=== PATIENT | female | born 1970 | race Caucasian/White ===

== ENCOUNTER 2016-12-21 17:49 | Inpatient (IN) ==
[2016-12-21 20:00] LABS: BASO% 0.5 % (0.0-0.8); EOS# 0.02 X1000 (0.0-0.7); EOS% 0.1 % (0.0-10.0); HEMATOCRIT 33.3 % (37.0-47.0); HEMOGLOBIN 10.9 g/dL (12.0-16.0); IMM GRAN# 0.15 X1000 (0.0-0.04); IMM GRAN% 0.9 % (0.0-0.5); LYMPH# 1.61 X1000 (1.2-3.4); LYMPH% 9.9 % (20.5-51.1); MANUAL DIFF NEEDED? NO; MCH 37.6 PG (27-31); MCHC 32.7 g/dL (33-37); MCV 114.8 FL (81-99); MONO# 0.66 X1000 (0.11-0.59); MONO% 4.1 % (1.7-9.3); MPV 12.3 FL (7.4-10.4); NEUT% 84.5 % (42.2-75.2); PLT 190 X1000 (130-400)
[2016-12-21 20:06] LABS: INR 1.57
[2016-12-21 20:24] LABS: AGAP 27; ALBUMIN 2.2 g/dL (3.5-5.0); ALKALINE PHOSPHATASE 340 U/L (32-104); AMYLASE 37 U/L (20-200); BUN 10 mg/dL (8-22); CHLORIDE 84 mmol/L (98-107); COSMO 265; GOT 293 U/L (10-30); GPT 85 U/L (10-36); LIPASE 72 U/L (13-60); SODIUM 134 mmol/L (136-145); TCO2 23 mmol/L (25-35); TOTAL BILIRUBIN 17.62 mg/dL (0.20-1.00)
--- NOTE | 2016-12-21 21:31 | Diag Imaging Result Doc PS360 ---
EXAM: THORAX/ABDOMEN/PELVIS INDICATION: jaundice, IV ONLY COMPARISON: CT abdomen and pelvis dated 08/21/2016. No prior CT chest is available for comparison. FINDINGS: CHEST: There are bilateral small pleural effusions and there is bibasilar atelectasis. There is subtle patchy groundglass opacity throughout the left lung suggesting air trapping or mild edema. The heart is not enlarged. There is no evidence of significant mediastinal or hilar lymphadenopathy. There are no abnormal mediastinal fluid collections. The bony structures of the chest are intact. ABDOMEN/PELVIS: There is hepatomegaly and there is severe hepatic steatosis that has worsened during the interval. The gallbladder is distended and there is vague sludge or stones layering in the gallbladder lumen. There is no definite pericholecystic inflammatory change. The spleen is not enlarged. There is mild thickening of essentially the entire colonic wall. However, probably, at least in part, this is due to nondistention of the colon. Correlate clinically to exclude a component of colitis. There are traces of extraluminal free gas low in the pelvis anterior to the urinary bladder. There is no obvious source of the gas. There is evidence of prior gastric bypass. There is no evidence of bowel obstruction. There has been a previous hysterectomy. There is small volume ascites that is layering in the pelvis. The remainder of the solid viscera of the abdomen and pelvis and the remainder of the GI tract are essentially unremarkable. IMPRESSION: 1.Small bilateral pleural effusions and bibasilar atelectasis. 2.Vague patchy ground glass opacity throughout the left lung suggesting mild edema versus air trapping. 3.Traces of extraluminal free gas low in the pelvis anterior to the urinary bladder and just superior to the pubic symphysis. However, the source of this is unknown. 4.Diffusely thickened colonic wall. This may be, at least in part, due to nondistention of the colon. Correlate clinically to exclude a component of colitis. 5.Hepatomegaly and very severe hepatic steatosis that has worsened during the interval. 6.Distended gallbladder with layering sludge or stones in the lumen. No definite surrounding inflammatory changes are appreciated. Electronically signed by Anam Eubanks 12/21/2016 9:28 PM
--- NOTE | 2016-12-21 22:42 | PROVIDER DOCUMENTATION ---
This chart was entered by Siva Nunez Scribe, acting as scribe for Hair Mckeon MD. HPI-Abdominal Pain/GI Problem - General Chief Complaint: Flank Pain Stated Complaint: jaundice Time Seen by Provider: 12/21/16 18:57 Source: patient, family Allergies/Adverse Reactions: Patient Allergies Allergy/AdvReac Type Severity Reaction Status Date / Time No Known Allergies Allergy Verified 12/21/16 18:05 Home Medications: Home Medication List Medication Instructions Recorded Confirmed Last Taken Type Fentanyl [Duragesic] 1 patch TD Q3D 12/21/16 12/21/16 12/19/16 History Methocarbamol [Methocarbamol] 750 mg PO 4XDAY 12/21/16 12/21/16 12/20/16 History Ondansetron Odt [Zofran Odt] 8 mg PO PRN PRN 12/21/16 12/21/16 Unknown History Rabeprazole [Aciphex] 20 mg PO DAILY 12/21/16 12/21/16 12/19/16 History - History of Present Illness-ABD Nature of Presenting Problems: Pt is a 46 yowf who presents to ER with CC of abdominal distention and jaundice. Pt reports general malaise for the past month, but reports that within the past week has developed loss of appetite, decreased desire to smoke cigarettes (1 ppd), abdominal distention, jaundice (scleral icterus noticed today), and shortness of breath (approximately for past 3 days). Pt reports that she normally consumes approxiamtely 1/3 pint of vodka per day, but has not felt like drinking for the past several days. Pt also reports she has been on phentanyl and percocet for the past 10-15 years. Abdominal Pain Onset Location: reports: generalized abdomen Pain Radiation: reports: no radiation Quality of Pain: reports: cramping Severity in ED: reports: moderate Onset/Duration: reports: other ("past month") Timing: reports: still present Associated Symptoms: reports: loss of appetite, malaise, shortness of breath, other (jaundice; scleral icterus). denies: anxiety, arm pain, chest pain, cough , diaphoresis, diarrhea, dizziness, fever/chills, headaches, muscle aches, nausea, vomiting, weakness, trouble walking Last BM: unsure Dark Stools Present?: reports: none noticed Rectal Bleeding: reports: none Rectal Pain: reports: none Emesis Description: reports: none Review of Systems - Adult - REVIEW OF SYSTEMS - ADULT Constitutional: denies: chills, fever, fatique, night sweats, weight gain, weight loss Eyes: reports: other (scleral icterus). denies: dry eyes, eye pain, redness Ears, Nose, Mouth & Throat: reports: no symptoms reported Cardiovascular: reports: no symptoms reported Respiratory: reports: shortness of breath. denies: chronic cough, cough, dyspnea on exertion, excessive sputum production, hemoptysis, pleurisy, wheezing Gastrointestinal: reports: abdominal pain (pain/distention), poor appetite. denies: hematemesis, constipation, diarrhea, difficulty swallowing, frequent heartburn, nausea, rectal bleeding, vomiting Genitourinary: reports: no symptoms reported Musculoskeletal: reports: no symptoms reported Integumentary: reports: other (jaundice). denies: hives, hair loss, itching, mole changes, nail changes, rash, skin sores/ulcer, skin thickening Neurological: reports: no symptoms reported Psychiatric: reports: no symptoms reported Endocrine: reports: no symptoms reported Hematologic/Lymphatic: reports: no symptoms reported Allergic/Immunologic: reports: no symptoms reported All Other Systems: Reviewed and Negative Past History - Adult - PAST MEDICAL HISTORY-ADULT Review of Records: reports: Nursing Assessment Review, Medications Reviewed - IMMUNIZATION STATUS Childhood Immunizations: See Nurse Assessment Flu Vaccine: See Nurse Assessment Physical Exam-General - PHYSICAL EXAM-ADULT Initial Vital Signs Reviewed: Yes - CONSTITUTIONAL General Appearance: appears well, alert, mild distress, lethargic - EYES Eyes: PERRL/EOMI, scleral icterus - NECK Neck: non-tender, full range of motion, supple, normal inspection. negative: limited range of motion, lymphadenopathy - RESPIRATORY Respiratory: chest non-tender, lungs clear, normal breath sounds, no pleuratic chest pain, no respiratory distress, no accessory muscle use. negative: respiratory distress, decreased breath sounds, accessory muscle use, wheezing - CARDIOVASCULAR Cardiovascular: normal peripheral pulses, regular rate, rhythm. negative: bradycardia, tachycardia, irregularly irregular - GASTROINTESTINAL (ABDOMEN) Abdominal Exam: normal bowel sounds, non tender, distended (minimal ascites), hepatomegaly (ende of liver is below umbilicus). negative: soft, no organomegaly, tenderness - MUSCULOSKELETAL Back Exam: normal inspection, no CVA tenderness, no vertebral tenderness, other (mid thoracic to saccral change in skin texture from prolonged exposure to heating pad). negative: CVA tenderness, vertebral tenderness Extremity: normal range of motion, non-tender, normal gait, normal inspection, no pedal edema, no calf tenderness, normal capillary refill, pelvis stable. negative: deformity, erythema, inflammation, swelling, tenderness - SKIN Integumentary: normal turgor, warm/dry, jaundice, other (mid thoracic to saccral change in skin texture from prolonged exposure to heating pad). negative: normal color, abrasion(s), diaphoresis, laceration(s), tenderness, warm - NEUROLOGIC Neurologic: apprentice cosmetologist II-XII nml as tested, grossly normal, no motor/sensory deficits . negative: motor weakness, sensory deficit - PSYCHIATRIC Psych/Mental Status: normal mood/affect, normal thought content, normal thought process, oriented x 3 Progress - PLAN OF CARE/RESULTS Progress/Plan/Lab Results: Vital Signs - 8 hr 12/21/16 18:03 Temperature 97.6 F Pulse Rate 117 H Respiratory Rate 20 Blood Pressure 102/70 O2 Sat by Pulse Oximetry 99 Orders Category Date Time Status Saline Loc DIRECTED Care 12/21/16 18:09 Active NPO Diet 12/21/16 18:[address] ABD/PELVIS W/ IV CONT ONLY [CT] Stat Exams 12/21/16 19:19 Ordered AMMONIA [CHEM] Stat Lab 12/21/16 18:08 Uncollected AMYLASE [CHEM] Stat Lab 12/21/16 19:00 Ordered CBC WITH ELECTRONIC DIFF [HEME] Stat Lab 12/21/16 19:00 Ordered COMPREHENSIVE METABOLIC PANEL [CHEM] Stat Lab 12/21/16 19:00 Ordered LIPASE [CHEM] Stat Lab 12/21/16 19:00 Ordered UA NIMS W/REFLEX CULT [URINALYSIS] Stat Lab 12/21/16 19:18 Uncollected URINALYSIS W/POSS RFLX CULT-1 [URINALYSIS] Stat Lab 12/21/16 18:09 Uncollected Result Diagrams: 12/21/16 18:58 12/21/16 18:58 - REASSESSMENT Reassessment #1 Time Reassessed: 22:38 (Discussed results of labs and radiology as well as plan to admit. PT and family at bedside verbally agree) - CT/MRI 1 CT Study: Abdomen, Pelvis, Thorax Impression: See EMR Report (Small bilateral pleural effusions and bibasilar atelectasis. Vague patchy ground glass opacity throughout the left lung suggesting mild edema versus air trapping. Traces of extraluminal free gas low in the pelvis anterior to the urinary bladder and just superior to the pubic symphasis. However, the source of this is unknown. Diffusely thickened colonic wall. This may be, at least in part, due to nondistention of the colon. Hepatomegaly and very severe hepatic steatosis that has worsened during the interval. Distended gallbladder with layering sludge or stones in the lumen. No definite surrounding inflammatory changes are appreciated - Dr. Eubanks ( Radiologist)) CT Results: See report - CONSULTS/PCP/HOSPITALIST Notification #1 *Consult/PCP/Hospitalist*: Dr. Rivas (Hospitalist) Time Discussed: 22:20 Consult Disposition: Admit Departure - Departure Date of Disposition Decision: 12/21/16 Time of Disposition Decision: 22:40 DIAGNOSIS: Hepatic failure Qualifiers: Liver failure chronicity: chronic Hepatic coma status: without hepatic coma Qualified Code(s): K72.10 - Chronic hepatic failure without coma Disposition: ADMITTED INPATIENT 09 Certified Medical Emergency: Emergent Condition: Poor Referrals and Follow-Ups: Nydia Lenz [Primary Care Provider] - - Critical Care Note This patient required my direct & personal management of CC.: No This chart was documented by the indicated scribe, (Siva Nunez Scribe) and accurately reflects the services I performed and decisions made by me, Hair Mckeon MD, as attested by the provider's signature.
[2016-12-21 23:05] LABS: URINE SOURCE CLEAN CATCH
[2016-12-21 23:14] LABS: UR EPITHELIAL CELLS <10 /HPF (<10); URINE BACTERIA 4+ /HPF; URINE MICRO REVIEW NEEDED? YES; URINE RBC <10 /HPF (<10)
[2016-12-21 23:49] LABS: BILIRUBIN URINE LARGE (NEGATIVE); BLOOD URINE SMALL (NEGATIVE); COLOR BROWN; GLUCOSE URINE NEGATIVE (NEGATIVE); NITRITE URINE NEGATIVE (NEGATIVE); PROTEIN URINE NEGATIVE (NEGATIVE); SP GRAVITY URINE 1.025; TURBIDITY URINE CLEAR (CLEAR); URINE CASTS GRANULAR PRESENT; URINE CRYSTALS NONE SEEN; UROBILINOGEN URINE NORMAL (NORMAL)
[2016-12-21 23:50] LABS: LEUKOCYTES URINE TRACE (NEGATIVE); URINE CULTURE NEEDED? YES
[2016-12-22] MEDS ORDERED: KLOR-CON PO ONE (00:40)
[2016-12-22] MEDS ORDERED: ATIVAN IV ONE (00:41)
[2016-12-22] MEDS ORDERED: ZOFRAN IV PRN (00:41)
[2016-12-22] MEDS ORDERED: THIAMINE IM ONE (02:17)
[2016-12-22] MEDS ORDERED: PROTONIX IV SCH (02:30)
[2016-12-22] MEDS: ROCEPHIN 1 GM/NS 1 GM/50 ML IVPB IV SCH (03:20)
[2016-12-22] MEDS: SODIUM CHLORIDE 0.9% INJ SCH ×2 (03:21→16:02)
[2016-12-22] MEDS: ATIVAN IV PRN ×4 (05:10→23:21)
[2016-12-22 06:16] LABS: BASO% 0.8 % (0.0-0.8); EOS# 0.05 X1000 (0.0-0.7); EOS% 0.3 % (0.0-10.0); HEMATOCRIT 28.9 % (37.0-47.0); HEMOGLOBIN 9.1 g/dL (12.0-16.0); IMM GRAN# 0.06 X1000 (0.0-0.04); IMM GRAN% 0.4 % (0.0-0.5); LYMPH# 1.68 X1000 (1.2-3.4); LYMPH% 11.5 % (20.5-51.1); MANUAL DIFF NEEDED? NO; MCH 36.8 PG (27-31); MCHC 31.5 g/dL (33-37); MONO# 0.64 X1000 (0.11-0.59); MONO% 4.4 % (1.7-9.3); NEUT% 82.6 % (42.2-75.2); PLT 60 X1000 (130-400); RBC 2.47 XMIL (4.2-5.4)
[2016-12-22 06:22] LABS: INR 1.79; PROTIME 19.5 Seconds (9.2-11.7)
[2016-12-22 06:34] LABS: MAGNESIUM 2.8 mg/dL (1.5-2.7)
[2016-12-22 07:07] LABS: AGAP 13; ALBUMIN 1.8 g/dL (3.5-5.0); ALKALINE PHOSPHATASE 264 U/L (32-104); BUN 12 mg/dL (8-22); CALCIUM 7.4 mg/dL (8.8-10.2); CHLORIDE 89 mmol/L (98-107); COSMO 265; GOT 238 U/L (10-30); GPT 71 U/L (10-36); POTASSIUM 3.3 mmol/L (3.5-5.1); SODIUM 133 mmol/L (136-145); TCO2 31 mmol/L (25-35); TOTAL BILIRUBIN 14.84 mg/dL (0.20-1.00); TOTAL PROTEIN 4.8 g/dL (6.3-8.3)
[2016-12-22 07:14] LABS: FERRITIN 866 ng/mL (13-150)
[2016-12-22 07:31] LABS: TOTAL IRON 85 ug/dL (49-151); UNBOUND IRON < 1 ug/dL (112-346)
--- NOTE | 2016-12-22 07:58 | HISTORY AND PHYSICAL ---
TIME: 2314. PRIMARY CARE PROVIDER: Dr. Briana Lenz. CHIEF COMPLAINT: Abdominal pain, jaundice, and abdominal distention. HISTORY OF PRESENT ILLNESS: Ms. Longoria is a 46-year-old, female, who presented to the ER [facility] with complaints of abdominal distention, abdominal pain, and jaundice. It started approximately 1 week ago. She states this progressively has gotten worse and is now having bilateral flank pain and some generalized tightness across her entire abdomen. She also reports that approximately 3 days ago she began having jaundice of the skin and eyes. She states that for approximately 1 month now that she has had decreased appetite stating that she feels full all the time. She also reports some generalized malaise for approximately 1 month and shortness of breath for the past 3 days upon exertion. She denies any nausea or vomiting but does report that she has chronic diarrhea since she has had her gastric bypass surgery though she denies any hematochezia or melena. She reports that her last bowel movement was today. She denies any fever, body aches, or chills. She is alert and oriented and denies any dizziness or lightheadedness, though did state just recently, when walking, she has felt off balance a few times. She denies any chest pain, increase or decrease in urinary frequency or dysuria. She denies any pain , numbness, or tingling in extremities. The patient does have a history of alcohol abuse. She has previously been treated at [facility] for this. The patient states this started just a year or two prior to her [facility] admission in 2014. The patient states that she uses alcohol to cope with anxiety. At this time presently, she is drinking approximately half a pint of vodka about 4 times a week. The patient states that her last drink of alcohol was 3 days ago. She also has a history of chronic pain due to some bulging disk at L3-4 and S1. The patient states that she has been on a fentanyl patch and Percocet x10 years. Though, the patient did not report this to me, her who was at bedside did report to me in private that she has had a history of abusing her prescription pain medications in the past as well, though the patient has denied any recent abuse of her pain medications or any illicit drug use. Upon examination in the ER, the patient was found to have abdominal distention. She was also jaundiced. The patient had scleral jaundice noted as well. There was also some generalized weakness. Upon evaluation, the patient was found to have elevated liver enzymes as well as leukocytosis with a white blood cell count of 16.28. A CT of the thorax, abdomen, pelvis with IV contrast only was performed which showed that the patient had small bilateral pleural effusions and atelectasis. There was also some suggestion of mild edema versus air trapping in the left lung. She has some hepatomegaly present with severe hepatic steatosis and a distended gallbladder with layering sludge or stones in the lumen though no surrounding inflammatory changes, and there was mention of traces of extra- luminal free gas in the low pelvis anterior to the urinary bladder, though the source of this was unknown. We did notify Dr. Hathaway of the patient's CT findings of free gas, and he states that he will see the patient in the morning. At this time, we will admit the patient for further treatment evaluation of her liver failure and CT findings as I mentioned above. REVIEW OF SYSTEMS: A 12-point review of systems was conducted with the patient and all were negative except for pertinent positives mentioned above in the HPI. PAST MEDICAL HISTORY: 1. Chronic pain secondary to a bulging disk at L3-L4 and S1. 2. Alcohol abuse. PAST SURGICAL HISTORY: 1. Gastric bypass surgery in 2004. She also had small bowel surgery secondary to some complications from her gastric bypass surgery approximately 2-3 years after her surgery in 2004. She also reports that she has had another ulcer surgery that the patient could not clearly state where her ulcer was located. 2. Hysterectomy. SOCIAL HISTORY: The patient has a history of alcohol abuse. As mentioned above , she has been treated previously at [facility] for this. Currently, she drinks approximately a half a pint of vodka 4 times a week and states that her last alcoholic drink was 3 days ago. She is a 1 pack a day smoker and has done so for the past 15 years. She denies any illicit drug use though, according to her , does have a history of abusing her prescription pain medicines. FAMILY HISTORY: Positive for her mother and father both having issues with chronic pain, and she does have a sister who has lupus. ALLERGIES: Patient reports no known allergies. HOME MEDICATIONS: 1. AcipHex 20 mg p.o. daily. 2. Fentanyl 75 mcg one patch transdermally q. 3 days. 3. Zofran ODT 8 mg p.o. p.r.n. as needed for nausea. 4. Methocarbamol 750 mg p.o. 4 times a day. DIAGNOSTIC DATA/LABORATORY RESULTS: White blood cell count is 16.2, red blood cell count 2.9, hemoglobin 10.9, hematocrit 33.3, MCV is 114.8, platelet count 190,000. PT 17. INR 1.57. PTT 37.3. Sodium 134, potassium 3.0, chloride 84, bicarb 23. BUN 10, creatinine 0.5, glucose 56, with a repeat fingerstick blood sugar of 74, calcium 8. Phosphorous 1.8 and magnesium 3. Total bilirubin is 17.62. GGT is 548. AST 293, ALT 85. Alkaline phosphatase 340. Ammonia level is 40. Total protein 6, albumin 2.2, amylase 37, lipase 72. Serum alcohol is 0. Acetaminophen level is 4.0. Urinalysis, obtained via clean catch, was positive for ketones, blood, large bilirubin, trace leukocytes, 10-20 white blood cells, and 4+ bacteria with less than 10 epithelial cells. Pending diagnostic studies at this time are a urine drug screen, urine culture, lipid profile, anemia profile, and abdominal ultrasound. CT of thorax, abdomen, and pelvis showed small bilateral pleural effusions and bibasilar atelectasis. There was also a patchy ground-glass opacity throughout the left lung suggesting mild edema versus air trapping. There are also traces of extraluminal free gas low in the pelvis anterior to the urinary bladder and just superior to the pubic symphysis, though the source at this time is unknown. There was diffusely thickened colonic wall, though correlation clinically to exclude component of colitis was recommended. Hepatomegaly and very severe hepatic steatosis that has worsened during the interval and distended gallbladder with layering sludge or stones in the lumen, though no definite surrounding inflammatory changes are appreciated. EKG showed a sinus tachycardia with nonspecific T-wave abnormality at a rate of 101 with a QTc of 430. PHYSICAL EXAMINATION: VITAL SIGNS: Temperature 98.8 degrees, heart rate 106, respiration 21, blood pressure 108/66. Oxygen saturation is 96% nasal cannula at 2 L. GENERAL: Ms. Longoria is a very pleasant 46-year-old female. She was resting comfortably on the ER stretcher. She was in no acute distress. She was awake, alert, and able to answer all questions appropriately. She is generally ill appearing and is jaundiced as well. HEENT: Head is atraumatic, normocephalic. Pupils are equal, round, reactive to light. Sclerae are jaundiced. Conjunctivae pink. Oral mucosa is moist. Oropharynx clear. NECK: Supple. Trachea midline. No carotid bruits noted on auscultation bilaterally. No JVD noted. CARDIOVASCULAR: The patient has normal S1, S2. No murmurs, gallops, or rubs appreciated with a slightly tachycardic rate, is regular. PULMONARY: The patient has symmetrical chest expansion bilaterally. Lung sounds were clear to auscultation in bilateral full childs. ABDOMEN: The abdomen is slightly firm, distended, and there is generalized tenderness noted throughout the abdomen. The patient did report some flank pain, though is not overly tender in this area compared to the rest of her abdominal exam. No CVA tenderness noted upon palpation. Bowel sounds were present in all 4 quadrants. EXTREMITIES: No cyanosis, clubbing, or edema noted. Pulse, motor and sensory were intact in all extremities. Pedal pulses were 3+ bilaterally. INTEGUMENTARY: The patient's skin is jaundiced. It is dry and intact. No lesions or sores noted. NEUROLOGIC: The patient is alert and orient x4. Cranial nerves 2-12 are grossly intact. The patient did have some slight asterixis noted in her left hand upon examination. ASSESSMENT AND PLAN: 1. Liver failure. For this, we have placed a consult with gastroenterology and will await their evaluation for their recommendations. The patient's liver enzymes are elevated as well as she does have some coagulopathy noted. We have placed an order for an abdominal ultrasound in the morning, as well as repeat CMP, PT/INR, lipid profile and an anemia profile. We have also placed her in ICU with telemetry for close monitoring. She will have neuro checks q.4 hours as well, and we will continue to monitor her condition very closely. 2. Macrocytic anemia. This is likely secondary to the patient's liver disease. We have placed an anemia profile and will await those results and continue to follow. 3. Leukocytosis. The patient did have some leukocytes and white blood cells with bacteria present in her urine. We have placed a urine culture as well. She is afebrile at this time. We will await on results and continue to follow. We have placed orders for the patient to have Rocephin 1 g IV q. 24 hours. 4. Urinary tract infection. We will treat as mentioned above and continue to follow. 5. Hypokalemia. The patient had a potassium level of 3.0, which she has been given potassium chloride extended release p.o. 40 mEq, and we will repeat a potassium level in the morning. 6. Alcohol abuse. We suspect that this might be the cause of the patient's liver failure. We have discussed with the patient her need to stop drinking. Also, as well, we have placed orders for Ativan p.r.n. as needed for alcohol withdrawal and will closely monitor her for these symptoms, and we will continue to follow. 7. Nicotine dependency. We will continue to discuss with the patient the importance of smoking cessation throughout her admission and upon discharge. 8. Findings of traces of extra-luminal gas in the low pelvis anterior to the urinary bladder and just superior to the pubic symphysis. As previously mentioned, the source of this is unknown according to the Radiologist report for her CT of abdomen and pelvis. We did speak with Dr. Hathaway about the patient's CT findings, and he will see her in the morning. We will await his evaluation and further recommendations and continue to follow. The patient will be placed ICU telemetry. She will have vital signs per ICU protocol. We will do fingerstick blood sugars q.4 hours. She will have DVT prophylaxis provided with SCDs. GI prophylaxis provided with Protonix 40 mg IV q. 24 hours. She will be on aspiration precautions, seizure precautions, and neuro checks. She will be n.p.o. until evaluated by GI in the morning. Further orders and recommendations pending hospital course, diagnostic studies, and physician evaluation. Dictated by LEIGHANN Herrera for Ashok Rivas MD cc: Ashok Rivas MD [facility] HOSPITALMarcela
[2016-12-22] MEDS ORDERED: POTASSIUM PHOSPHATE 40 MMOL in NS 250.0000 ML IV ONE (10:14)
[2016-12-22] MEDS ORDERED: M.V.I.-12 10 ML, FOLIC ACID 1 MG, MAGNESIUM SULFATE 1 GM, THIAMINE 100 MG in NS 1,000 ML IV ONE (10:16)
[2016-12-22] MEDS ORDERED: NS 1,000 ML IV SCH (10:16)
[2016-12-22] MEDS: DILAUDID IV PRN ×2 (11:15→22:51)
[2016-12-22] MEDS: NICODERM PATCH TD SCH (11:16)
[2016-12-22] MEDS: FOLIC ACID 1 MG in NS 50.0 ML IV SCH (11:39)
[2016-12-22] MEDS ORDERED: POTASSIUM PHOSPHATE 40 MMOL in NS 250 ML IV ONE (13:00)
--- NOTE | 2016-12-22 13:36 | Diag Imaging Result Doc PS360 ---
EXAM: US ABDOMEN-COMPLETE INDICATION: Liver Failure, ascites COMPARISON: No prior ultrasound is available for comparison. FINDINGS: There is layering sludge in the gallbladder lumen. No shadowing gallstones are appreciated. There is no evidence of gallbladder wall thickening or pericholecystic fluid. The common bile duct is normal in diameter. Sonographic Kerr's sign was reported to be negative. The liver is enlarged and very echogenic consistent with known severe hepatic steatosis as was also seen on a recent CT. No discrete hepatic mass is appreciated. Portal venous flow is hepatopedal. The pancreas is completely obscured. The aorta and IVC are largely obscured. The spleen is normal in size and echotexture. There is trace fluid around spleen and there is a left pleural effusion. The kidneys are grossly unremarkable. IMPRESSION: 1.Enlarged and markedly echogenic liver compatible with severe hepatic steatosis. 2.Layering sludge in the gallbladder lumen but no definite wall thickening or pericholecystic fluid and a reported negative sonographic Kerr's sign. 3.Trace fluid tracking around the spleen and a left pleural effusion. Electronically signed by Anam Eubanks 12/22/2016 1:34 PM
--- NOTE | 2016-12-22 15:00 | CONSULTATION ---
DATE OF CONSULTATION: 12/22/2016 Ms. Mattie Longoria is a 46-year-old white female who was admitted through the emergency department with jaundice. A CT scan of her abdomen and pelvis suggested an enlarged fatty liver, gallstones and a pocket of free air just above her pubic bone. We were asked to evaluate her. She has been admitted with liver failure. She does have a history of laparoscopic gastric bypass. PAST MEDICAL HISTORY: In 2004 in [facility], she underwent a laparoscopic gastric bypass. She has had complications of this bypass requiring a small bowel resection and also most recently ulcer surgery per Dr. Parkinson at [facility]. She has also had a hysterectomy and she is seen at a pain clinic for chronic back pain. She does have a history of alcohol abuse, being hospitalized at [facility] in March 2015 and she also smokes a pack of cigarettes a day. MEDICATIONS: AcipHex, Duragesic, Zofran and methocarbamol. REVIEW OF SYSTEMS: Her says that her appetite has been very poor and recently got her some Ensure. He has noticed that her skin was yellow for the last week and brought her to the emergency department when her eyes became yellow. They live in [place]. Her is at the bedside. FAMILY HISTORY: Noncontributory. PHYSICAL EXAMINATION: Vital Signs: Her temperature is 97.6 degrees, pulse rate 117, blood pressure 102/70. Her O2 saturation 99%. She is in the ICU. She is awake, obviously jaundiced. She is cooperative. She does not appear to be any acute distress. Heart: Rate is regular. Lungs: Clear. Abdomen: Is distended. She has a large liver that is palpable. All incisions are healed. She has no hernia and no evidence of acute abdomen. No costovertebral tenderness. Rectal/Vaginal: Exams were not performed. She does have palpable femoral pulses. She does have some peripheral edema but no neurologic deficits. On admission her white blood cell count was 16. BUN and creatinine 10 and 0.5. Her platelets were 56,000. Hematocrit 33%. Her liver function tests were elevated with a total bilirubin of 14, AST of 238, alkaline phosphatase of 264 and albumin of 1.8. DIAGNOSTIC DATA: A CT scan of abdomen and pelvis was reviewed with the radiologist Dr. Eubanks. She has diffuse grossly abnormal liver which is enlarged and diffusely fatty infiltrated. She has a possible stone in her gallbladder but no surrounding inflammation. She has a pocket of air anterior to the bladder just superior to the pubic bone. The etiology is unknown but it is not diffuse in her abdomen and on exam she has no acute abdomen. PLAN: She needs to be treated for her liver failure and no surgery is planned. I discussed my findings with her and her at the bedside. cc: Barbie Hathaway MD
[2016-12-22] MEDS: D5 NS 1,000 ML IV SCH (15:55)
[2016-12-22] MEDS: PROTONIX IV SCH (16:02)
[2016-12-22 16:39] LABS: UR AMPHETAMINES QUAL NONE DETECTED (NONE DETECT); UR BARBITUATES QUAL NONE DETECTED (NONE DETECT); UR BENZODIAZEPIN QUAL NONE DETECTED (NONE DETECT); UR CANNABINOIDS QUAL NONE DETECTED (NONE DETECT); UR COCAINE QUAL NONE DETECTED (NONE DETECT); UR METHADONE QUAL NONE DETECTED (NONE DETECT); UR OPIATES QUAL NONE DETECTED (NONE DETECT); UR OXYCODONE QUAL NONE DETECTED (NONE DETECT); UR PCP QUAL NONE DETECTED (NONE DETECT)
[2016-12-22] MEDS: TRENTAL PO SCH (17:35)
--- NOTE | 2016-12-22 18:34 | CONSULTATION ---
DATE OF CONSULTATION: 12/22/2016 PRIMARY CARE PROVIDER: Dr. Nydia Lenz M.D. PRIMARY HOSPITALIST: Dr. Elo Dolan M.D. SURGEON: Dr. Marcus Parkinson M.D. PRIMARY TURNING SANDER TENDER: Vladimir Faria M.D. INDICATION FOR CONSULTATION: 1. Jaundice. 2. Abdominal pain. 3. Abdominal distention. HISTORY OF PRESENT ILLNESS: The patient is a 46-year-old white female who was admitted on 12/22/2016. She presented to the emergency room with a 1-week history of abdominal pain, abdominal distention, loss of appetite and weakness. The patient is unable to provide a history. According to her , she has a longstanding history of morbid obesity. While living in [place], she underwent a Digna-en-Y gastric bypass in 2004. Her postoperative course was complicated by a small bowel obstruction that required reoperation. She did well until 2016 when she developed an upper GI bleed secondary to anastomotic ulcer that was surgically repaired by Dr. Kevin Parkinson. Her primary primary care sales representative is Dr. Vladimir Faria. He states that she has a longstanding history of alcohol abuse and cirrhosis. She has been recently treated at [facility] stating that her last admission was in 2014. She drinks approximately half a pint of vodka 4-5 times per week. She states that her last drink was 3 days prior to admission. In the emergency room, she was found to have abdominal distention, obvious jaundice and generalized weakness. On serum chemistry, her liver function tests were significantly elevated and she has an unexplained leukocytosis with a white blood cell count of 16.28. Her CT scan of the chest, abdomen, and pelvis was remarkable for bilateral pleural effusions, possible pulmonary edema versus air trapping in the lung, traces of extraluminal free gas in the pelvis anterior to the urinary bladder and above the pubic symphysis. In addition, her colonic mucosal wall appeared diffusely thickened and was suggestive of possible colitis. She had a very severe hepatic steatosis and hepatomegaly with a distended gallbladder showing evidence of layering sludge or stones. There were no defined inflammatory changes suggesting an acute cholecystitis. Prior to our consultation, she was evaluated by Dr. Christian Hathaway who felt that surgery was not an option at this time. PAST MEDICAL HISTORY: 1. Alcohol liver disease. 2. Obesity status post Digna-en-Y gastric bypass. 3. Small bowel obstruction. 4. Anastomotic ulcer. 5. Degenerative joint disease. 6. Chronic anxiety. 7. Chronic pain syndrome. 8. Chronic smoker as she has smoked 1 pack per day for the last 15 years. 9. Gastroesophageal reflux disease. PAST SURGICAL HISTORY: 1. Gastric bypass in 2004. 2. Surgical repair of a small-bowel obstruction post gastric bypass in 2007. 3. Repair of an anastomotic ulcer in 2016. 4. Hysterectomy. 5. Tummy tuck. SOCIAL HISTORY: The patient smokes 1 pack per day of cigarettes for last 15 years. Her alcohol intake is approximately 1/2 pint of vodka a 4-5 times per week. Her last drink was on 12/19/2016. She denies drug use. However, her reports that she has abused prescription pain medications in the past. FAMILY HISTORY: Negative for gastric and colon cancer. It is also negative for liver cancer. The chart notes that both parents have issues with chronic pain syndrome and 1 sister has lupus. MEDICATION ALLERGIES: None. HOME MEDICATIONS: 1. AcipHex. 2. Fentanyl patch. 3. Zofran. 4. Methocarbamol. REVIEW OF SYSTEMS: Unobtainable as the patient fell asleep multiple times during the interview and exam. The history is primarily from the chart and the patient's . On exam, her blood pressure is 104/65, pulse of 106, respiration 20, temp of 97.8 degrees. She is obviously icteric with icteric sclerae. Her conjunctivae are pale. Her oropharyngeal mucosal membranes are dry.Pulmonary: Lungs are clear to auscultation with normal expiratory effort. Cardiovascular: Reveals a resting tachycardia with a regular rhythm. There are no gallops, murmurs or rubs appreciated. Abdominal Exam: Reveals hypoactive bowel sounds. She is diffusely tender, but it is greatest in the right upper and right lower quadrant. There was no rebound or guarding. She has well-healed surgical scars. Extremities: Bilaterally are negative for cyanosis, clubbing, or edema. Neurologic Exam: She is alert and oriented x3. However, she does fall asleep easily during the exam. OBJECTIVE DATA: Reveals a hemoglobin of 9.1 with hematocrit of 28.9, and a white count of 14.65. She has 60,000 platelets. PT is 19.5 with an INR of 1.79. Her sodium is 133, potassium 3.3, chloride 89, BUN 12, creatinine 0.6 with a glucose of 76. Calcium is 7.4 with a total bilirubin of 17.62 on admission. Her bilirubin is 14.84 today. Her phosphorus is 1.1, her magnesium is 2.8, AST 238, ALT 71, alkaline phosphatase 264, GGT 432, total protein 4.8, and albumin 1.8. Her triglycerides are 250. Her iron is 85, with a ferritin of 866. Her B12 is greater than 2000 but her folic acid is deficient at 3.3. IMPRESSION: CT scan findings 1. Bilateral pleural effusions with bibasilar atelectasis. 2. Ground-glass appearance suggestive of mild edema versus air trapping. 3. Possible free air. 4. Diffusely thickened colon wall consistent with colitis. 5. Hepatomegaly with severe hepatic steatosis. 6. Distended gallbladder with layering sludge or stones. RECOMMENDATION: 1. The patient has a MELD score of 23, with a discriminant function of 49. Her evaluation is consistent with Child's class C. I am certain that she has alcoholic cirrhosis. However, because of the possibility of free air, she is not a candidate for prednisolone which would ideally help her liver to recover. Therefore, I recommend beginning Trental 400 mg p.o. t.i.d. 2. I agree with Protonix 40 mg IV q.12 hours. 3. I agree with folic acid supplementation. I would add thiamine 100 mg daily given her history of alcohol use on a near daily basis. 4. The patient has hypophosphatemia which will also need to be addressed. I will defer to the hospitalist for correction of her hypophosphatemia which will become important with regard to her respiratory function and muscle function. The patient also has a coagulopathy and thrombocytopenia most likely secondary to her alcohol liver disease. I would monitor and provide FFP and/or vitamin K, depending on the interval change in her PT/ INR. Please monitor these levels daily. 5. The patient has possible acute colitis on CT scan as well as possible pulmonary edema. I agree with ceftriaxone for the time being. Depending on her clinical response, she may benefit from Zosyn for broader coverage. 6. The patient's hemoglobin has dropped slightly this admission. However, she has no clinical evidence of active GI bleeding. I would have a low threshold for transitioning her PPI therapy to a drip and adding octreotide if her hemoglobin continues to drop. I would only perform an EGD this admission if she has evidence of active bleeding. New guidelines suggest that an outpatient EGD after resolution of alcoholic hepatitis is more beneficial in screening for esophageal varices. 7. Because of her profound malnutrition, she may benefit from a Dobbhoff feeding tube and enteral nutrition. I will reassess in the morning and determine if it is reasonable to start enteral nutrition in this patient. I would use an elemental formula such as Vital AF to avoid overstimulating her pancreas and liver. 8. Additional recommendations to follow based on her clinical course. 9. Dr. Reagan or Uche will assume care on Saturday. cc: MD Nydia Bragg MD Jay W. Suggs, MD Lynn R. Buckner, MD MTDD
[2016-12-22] MEDS: DURAGESIC 75 MICROGM/HR PATCH TD SCH (20:30)
[2016-12-22] MEDS: LIBRIUM PO SCH (22:40)
[2016-12-23 01:27] LABS: URINE SOURCE CLEAN CATCH
[2016-12-23 01:33] LABS: BLOOD URINE TRACE (NEGATIVE); COLOR YELLOW; GLUCOSE URINE NEGATIVE (NEGATIVE); LEUKOCYTES URINE NEGATIVE (NEGATIVE); NITRITE URINE POSITIVE (NEGATIVE); PH URINE 5.5; PROTEIN URINE TRACE mg/dL (NEGATIVE); SP GRAVITY URINE 1.024; TURBIDITY URINE TURBID (CLEAR); UROBILINOGEN URINE NORMAL (NORMAL)
[2016-12-23] MEDS: ROCEPHIN 1 GM/NS 1 GM/50 ML IVPB IV SCH (01:35)
[2016-12-23] MEDS: D5 NS 1,000 ML IV SCH (01:35)
[2016-12-23 01:36] LABS: UR EPITHELIAL CELLS <10 /HPF (<10); URINE BACTERIA 4+ /HPF; URINE CULTURE NEEDED? YES; URINE MICRO REVIEW NEEDED? YES; URINE RBC <10 /HPF (<10)
[2016-12-23 02:35] LABS: URINE CASTS NONE SEEN; URINE CRYSTALS NONE SEEN; URINE SMALL ROUND CELLS NONE SEEN
[2016-12-23 03:28] LABS: BILIRUBIN URINE LARGE (NEGATIVE)
[2016-12-23] MEDS: LIBRIUM PO SCH ×4 (04:05→22:18)
[2016-12-23] MEDS: PROTONIX IV SCH ×2 (04:07→16:00)
[2016-12-23] MEDS: SODIUM CHLORIDE 0.9% INJ SCH (04:07)
[2016-12-23 05:16] LABS: INR 1.66
[2016-12-23 05:48] LABS: URINE WBC <10 /HPF (<10)
[2016-12-23 06:02] LABS: AGAP 10; ALKALINE PHOSPHATASE 263 U/L (32-104); BUN 12 mg/dL (8-22); CHLORIDE 100 mmol/L (98-107); COSMO 282; GOT 228 U/L (10-30); GPT 74 U/L (10-36); POTASSIUM 3.2 mmol/L (3.5-5.1); SODIUM 141 mmol/L (136-145); TCO2 31 mmol/L (25-35); TOTAL BILIRUBIN 16.77 mg/dL (0.20-1.00); TOTAL PROTEIN 5.1 g/dL (6.3-8.3)
[2016-12-23] MEDS ORDERED: CALCIUM GLUCONATE 1 GM in NS 50 ML IV ONE ×2 (06:16→06:56)
[2016-12-23] MEDS ORDERED: POTASSIUM PHOSPHATE 40 MMOL in NS 250 ML IV ONE (06:55)
[2016-12-23] MEDS: D5W 1,000 ML IV SCH ×2 (07:00→21:08)
[2016-12-23 07:20] LABS: BASO% 0.3 % (0.0-0.8); EOS# 0.11 X1000 (0.0-0.7); EOS% 0.9 % (0.0-10.0); HEMATOCRIT 30.9 % (37.0-47.0); HEMOGLOBIN 9.5 g/dL (12.0-16.0); IMM GRAN# 0.12 X1000 (0.0-0.04); IMM GRAN% 0.9 % (0.0-0.5); LYMPH# 1.51 X1000 (1.2-3.4); LYMPH% 11.7 % (20.5-51.1); MANUAL DIFF NEEDED? NO; MCH 36.7 PG (27-31); MCHC 30.7 g/dL (33-37); MCV 119.3 FL (81-99); MONO# 0.66 X1000 (0.11-0.59); MONO% 5.1 % (1.7-9.3); MPV 11.6 FL (7.4-10.4); NEUT% 81.1 % (42.2-75.2); PLT 184 X1000 (130-400); RBC 2.59 XMIL (4.2-5.4)
[2016-12-23] MEDS: ATIVAN IV PRN (07:25)
[2016-12-23] MEDS ORDERED: ATIVAN IV SCH (08:15)
[2016-12-23] MEDS ORDERED: M.V.I.-12 10 ML, MAGNESIUM SULFATE 2 GM, THIAMINE 100 MG, FOLIC ACID 1 MG in D5 NS 1,00... IV ONE (08:15)
[2016-12-23] MEDS ORDERED: ZYPREXA ZYDIS PRN (08:15)
[2016-12-23] MEDS: ATIVAN 20 MG in NS 190 ML IV SCH ×2 (09:00→17:30)
[2016-12-23] MEDS: FOLIC ACID 1 MG in NS 50.0 ML IV SCH (09:00)
[2016-12-23] MEDS: NICODERM PATCH TD SCH (09:15)
[2016-12-23] MEDS: THERA M PLUS PO SCH (09:15)
[2016-12-23] MEDS: TRENTAL PO SCH ×3 (09:15→17:00)
[2016-12-23] MEDS ORDERED: MAGNESIUM SULFATE 2 GM/S.W.I. 2 GM/50 ML IVPB IV ONE (15:16)
[2016-12-23] MEDS: ZOSYN 3.375 GM/NS 3.375 GM/50 ML IVPB IV SCH ×3 (15:30→22:26)
[2016-12-23 16:12] LABS: POTASSIUM 3.4 mmol/L (3.5-5.1)
--- NOTE | 2016-12-23 16:14 | PROGRESS NOTE ---
DATE: 12/23/2016 SUBJECTIVE: The patient was noted to be in alcohol withdrawal this morning and has started on the alcohol withdrawal protocol. OBJECTIVE: Vital Signs: Temperature 97 degrees, blood pressure 124/82, heart rate 98, respirations 25, O2 saturation 97% on 3 L nasal cannula. General: This is a chronically ill- appearing female lying in bed, in no acute distress. Head: Normocephalic. Atraumatic. Skin: Positive for jaundice. Eyes: Positive for scleral icterus. Heart: S1, S2 normal. Tachycardic. Lungs: Clear to auscultation bilaterally. No crackles. Abdomen: Positive bowel sounds. Soft, nontender, nondistended. Extremities: No edema. No cyanosis. No calf tenderness. Neurologic: The patient is confused and in alcohol withdrawal. LABS: White blood cell count 12, hemoglobin 9.5, hematocrit 30, platelets 184, 000, INR 1.6. Sodium 141, potassium 3.2, chloride 100, CO2 31, BUN 12, creatinine 0.4, glucose 111, calcium 7, phosphorus 1.3, magnesium 2.,7 total bilirubin 16.7. AST 220, ALT 274, alkaline phosphatase 263, albumin 2.0. ASSESSMENT AND PLAN: 1. Alcoholic hepatitis. We will continue to monitor the patient's liver function tests while on Trental. 2. Suspected alcoholic liver cirrhosis. Aware. 3. Alcohol withdrawal. Continue on the withdrawal protocol. 4. Hypokalemia. We will replace the patient's potassium. 5. Hypophosphatemia. We will replace the patient's phosphorus. 6. Coagulopathy. Mildly improved today. We will continue to monitor this closely. 7. Anemia of chronic disease. Continue to monitor the hemoglobin and hematocrit closely. 8. Colitis. Continue on Zosyn. 9. Leukocytosis. Improving daily. Continue on IV antibiotic therapy. 10. Alcohol abuse. Aware. 11. Hypocalcemia. We will replace the patient's calcium. 12. UTI. Continue on zosyn. The patient remains critically ill with a high risk of mortality. The patient's was updated on the patient's condition. cc: Elo Dolan MD MTDD
[2016-12-23] MEDS ORDERED: POTASSIUM PHOSPHATE 40 MMOL in NS 250.0000 ML IV ONE (17:10)
[2016-12-23] MEDS ORDERED: SANDOSTATIN IV ONE (18:27)
[2016-12-23] MEDS ORDERED: SANDOSTATIN 500 MICROGM in D5W 100 ML IV SCH (18:30)
[2016-12-23] MEDS ORDERED: PROTONIX 80 MG in NS 80 ML IV ONE (18:42)
[2016-12-23 19:13] LABS: INR 1.79; PROTIME 19.5 Seconds (9.2-11.7)
[2016-12-23 19:26] LABS: BASO% 0.3 % (0.0-0.8); EOS# 0.12 X1000 (0.0-0.7); EOS% 0.9 % (0.0-10.0); HEMATOCRIT 28.3 % (37.0-47.0); HEMOGLOBIN 8.7 g/dL (12.0-16.0); IMM GRAN# 0.16 X1000 (0.0-0.04); IMM GRAN% 1.3 % (0.0-0.5); LYMPH# 1.34 X1000 (1.2-3.4); LYMPH% 10.5 % (20.5-51.1); MANUAL DIFF NEEDED? YES; MCH 37.2 PG (27-31); MCHC 30.7 g/dL (33-37); MCV 120.9 FL (81-99); MONO# 0.59 X1000 (0.11-0.59); MONO% 4.6 % (1.7-9.3); MPV 11.5 FL (7.4-10.4); NEUT% 82.4 % (42.2-75.2); PLT 151 X1000 (130-400); RBC 2.34 XMIL (4.2-5.4)
--- NOTE | 2016-12-23 19:30 | PROGRESS NOTE ---
DATE: 12/23/2016 SUBJECTIVE: Overnight the patient had developed melena. Dr. Dolan and I were notified at about 6 p.m. today that she had been having melena overnight and this morning. She has remained hemodynamically stable but has had signs and symptoms of withdrawal. She is currently on Ativan protocol. Her vitals have been stable throughout the night. However urine has turned brown and appears bilious in color. OBJECTIVE DATA: Vital signs: Reveals a blood pressure of 102/75 pulse 102, respirations 25, temperature of 97.8 degrees. HEENT: Remarkable for persistent jaundice. Her oropharyngeal mucosal membranes are dry. Pulmonary: Lungs are clear to auscultation anteriorly. There are decreased breath sounds posteriorly. Cardiovascular: Reveals a resting tachycardia with a regular rhythm. Abdomen: Reveals hypoactive bowel sounds. The abdomen is slightly firm and distended. There is a palpable nodule versus soft tissue density in the epigastrium that is approximately 6-7 cm in size which is new since Dr. Dolan's exam this morning and my exam on 12/22/2016. It is tender to palpation. She grimaces despite sedation when the abdominal fullness is palpated. Extremities: Bilaterally are negative for cyanosis, clubbing, or edema. Neurologic: She has an indwelling [place] with whitten brown bilious appearing urine. OBJECTIVE DATA: Remarkable for a hemoglobin of 9.5 with hematocrit of 30.9 and a white count of 12.92. She has 184,000 platelets. Her PT is 18 with an INR of 1.66. Sodium is 141, potassium 3.4, chloride 100, CO2 31, BUN 12, creatinine 0.4 and glucose of 111. Calcium is 7.0, phosphorus 2.3, magnesium 2.7, total bilirubin 16.77, AST is 228, ALT 74, alkaline phosphatase 63, ammonia 41, total protein 5.1 and albumin 2.0. IMPRESSION: 1. Melena, new since 12/22/2016. 2. Alcoholic hepatitis. 3. Colitis. 4. Cirrhosis with hepatic steatosis. 5. Distended gallbladder with sludge and stones. 6. Alcohol withdrawal. 7. Hypokalemia. 8. Hypophosphatemia. 9. Anemia of chronic disease. 10. Leukocytosis. 11. Known alcohol abuse. 12. Hypocalcemia. 13. Abdominal fullness of unknown significance. 14. Ascites. RECOMMENDATION: 1. The patient is having evidence of a probable GI bleed which is new since admission and since 12/22/2016. I will begin a Protonix drip, octreotide drip and repeat her CBC stat. 2. We placed the patient on the schedule for an EGD in the morning pending her lab results. If she has a significant drop in hemoglobin, she will need to have the EGD performed this evening urgently. Her blood pressures have been labile and will need stabilization. 3. Continue Ativan protocol for alcohol withdrawal. 4. Her hypokalemia, hypophosphatemia and hypocalcemia are consistent with refeeding syndrome. These electrolytes have been supplemented by Dr. Dolan. This suggests that the patient has had prolonged fasting prior to her admission. We will need to be careful with reintroduction of calories to ovoid cardiovascular compromise. 5. Please perform serial hemoglobin and hematocrit overnight. 6. Please check a urinalysis to assess for blood as well as bilirubin given that her urine has changed colors. 7. Continue Trental for now for the alcoholic hepatitis. I will recheck her ammonia. Although it has been normal, will look for interval changes. 8. The patient's INR is 1.66. In light of her melena, I will administer FFP in anticipation of performing endoscopy in the morning. 9. She will also be typed and crossed in the event that she requires a blood transfusion. I would avoid over transfusion as I suspect she may also have esophageal varices although she does not have evidence of an acute variceal bleed. 10. We will obtain the abdominal ultrasound for further evaluation of her abdominal fullness. 11. She has ascites on exam and may benefit from a paracentesis once we have reassessed her abdomen with the updated abdominal ultrasound. This will allow us to compare her findings with the abdominal ultrasound that was obtained on 12/22/2016. 12. Dr. Hathaway is following. We will provide him with an update once we have updated information after her reassessment. 13. Dr. Reagan or Cody will assume care in the am. cc: MD Barbie Baron MD Manish Arora, MD [facility] HOSPITALMarcela
[2016-12-23 19:36] LABS: BANDS 2 % (0-1); EOS 2 % (1-10); LYMPHS 9 % (21-51); MONO 5 % (1-9)
[2016-12-23 19:43] LABS: ALBUMIN 1.6 g/dL (3.5-5.0); ALKALINE PHOSPHATASE 235 U/L (32-104); DIRECT BILIRUBIN > 10.00 mg/dL (0.00-0.20); GOT 171 U/L (10-30); GPT 64 U/L (10-36); TOTAL BILIRUBIN 15.92 mg/dL (0.20-1.00); TOTAL PROTEIN 4.3 g/dL (6.3-8.3)
[2016-12-23] MEDS: DILAUDID IV PRN (21:05)
[2016-12-23] MEDS: PROTONIX 80 MG in NS 80 ML IV SCH (21:09)
[2016-12-23 21:28] LABS: HEMATOCRIT 27.4 % (37.0-47.0); HEMOGLOBIN 8.4 g/dL (12.0-16.0)
--- NOTE | 2016-12-23 21:52 | PROGRESS NOTE ---
DATE: 12/23/2016 SUBJECTIVE: In interval since initial rounds this evening, the patient has had hemodynamic lability. She is hemodynamically stable now. Repeat hemoglobin is noted for hemoglobin of 8.7 with hematocrit of 23.8. Her white count remains elevated at 2.73. She has 151 ,000 platelets. There have been no further episodes of melena since rounds. Her PT has increased to 19.5 with an INR of 1.79. She is currently receiving FFP. Her liver function tests are relatively stable although her bilirubin is slightly increased. Her CRP is 41.26. Her ammonia remains normal at 37. On abdominal ultrasound, her gallbladder is significantly distended and exquisitely tender compared to her previous exam on 12/22/2016. There is also decreased flow in the liver. Dr. Hathaway was notified of the above findings on ultrasound and her clinical change. RECOMMENDATION: 1. We will continue to stabilize patient through the night. She will receive 2 units of FFP. 2. Continue Protonix and octreotide drip. 3. She is on the schedule for an EGD per Dr. Reagan and/or Uche in the morning. 4. Nurses are aware to contact me directly if there is a significant interval change overnight. 5. I will check a hemoglobin and hematocrit q.4 hours to monitor for interval change in her blood count. Her stools are dark but there has been no diarrhea at this time. 6. Additional recommendations to follow per Dr. Reagan or Uche in the morning. cc: MD Dr. Briana Baron
[2016-12-23 23:17] LABS: URINE SOURCE CATH
[2016-12-23 23:25] LABS: BLOOD URINE TRACE (NEGATIVE); COLOR YELLOW; GLUCOSE URINE NEGATIVE (NEGATIVE); LEUKOCYTES URINE TRACE (NEGATIVE); NITRITE URINE NEGATIVE (NEGATIVE); PROTEIN URINE TRACE mg/dL (NEGATIVE); SP GRAVITY URINE 1.018; TURBIDITY URINE HAZY (CLEAR); UROBILINOGEN URINE NORMAL (NORMAL)
[2016-12-23 23:29] LABS: UR EPITHELIAL CELLS <10 /HPF (<10); URINE BACTERIA NEGATIVE /HPF; URINE CULTURE NEEDED? YES; URINE MICRO REVIEW NEEDED? YES; URINE RBC <10 /HPF (<10); URINE WBC <10 /HPF (<10)
[2016-12-23 23:44] LABS: BILIRUBIN URINE LARGE (NEGATIVE); URINE CASTS NONE SEEN; URINE CRYSTALS NONE SEEN; URINE SMALL ROUND CELLS NONE SEEN
[2016-12-24] MEDS: ATIVAN IV PRN ×5 (00:08→14:36)
[2016-12-24 01:41] LABS: HEMATOCRIT 26.7 % (37.0-47.0); HEMOGLOBIN 8.5 g/dL (12.0-16.0)
[2016-12-24 03:18] LABS: ALLEN TEST YES; BE 6.6 mmoll (-3.0-3.0); BLOOD TYPE ARTERIAL; DRAW SITE R RADIAL; O2(CT) 10.2 mL/dL (15.0-23.0); PO2(98.6) 67 mmHg (60-100); SAMPLE BLOOD; SAO2 98.6 % (95.0-100.0); THB 7.6 g/dL (11.5-17.4)
[2016-12-24 03:20] LABS: PCO2(98.6) 52 mmHg (35-45)
[2016-12-24 03:21] LABS: MODALITY NRB
[2016-12-24] MEDS ORDERED: LASIX IV ONE ×3 (03:37→09:00)
[2016-12-24 03:41] LABS: INR 1.44; PROTIME 15.5 Seconds (9.2-11.7)
[2016-12-24] MEDS: ZOSYN 3.375 GM/NS 3.375 GM/50 ML IVPB IV SCH ×4 (03:54→20:25)
[2016-12-24] MEDS: LIBRIUM PO SCH ×4 (03:55→23:28)
[2016-12-24 04:04] LABS: BASO% 0.2 % (0.0-0.8); EOS% 0.8 % (0.0-10.0); HEMATOCRIT 24.1 % (37.0-47.0); HEMOGLOBIN 7.2 g/dL (12.0-16.0); IMM GRAN# 0.11 X1000 (0.0-0.04); IMM GRAN% 0.9 % (0.0-0.5); LYMPH# 1.13 X1000 (1.2-3.4); LYMPH% 9.4 % (20.5-51.1); MANUAL DIFF NEEDED? YES; MCH 36.2 PG (27-31); MCHC 29.9 g/dL (33-37); MCV 121.1 FL (81-99); MONO# 0.58 X1000 (0.11-0.59); MONO% 4.8 % (1.7-9.3); MPV 11.3 FL (7.4-10.4); NEUT% 83.9 % (42.2-75.2); PLT 141 X1000 (130-400); RBC 1.99 XMIL (4.2-5.4)
[2016-12-24] MEDS ORDERED: NS 250 ML IV SCH (05:48)
--- NOTE | 2016-12-24 06:48 | EKG Report ---
Test Performed on : 12/21/2016 11:10:53 PM Test Reason : NO ORDER IN IT'SUGAR Blood Pressure : / mmHG Vent. Rate : 101 BPM Atrial Rate : 101 BPM P-R Int : 128 ms QRS Dur : 074 ms QT Int : 332 ms P-R-T Axes : 059 022 049 degrees QTc Int : 430 ms Sinus tachycardia. Nonspecific T wave abnormality Abnormal ECG No previous ECGs available Unconfirmed Result
[2016-12-24] MEDS: SANDOSTATIN 500 MICROGM in D5W 100 ML IV SCH ×3 (06:50→18:37)
[2016-12-24] MEDS ORDERED: NS NEB INH SCH (07:00)
[2016-12-24 07:23] LABS: AGAP 14; ALBUMIN 2.1 g/dL (3.5-5.0); ALKALINE PHOSPHATASE 211 U/L (32-104); BUN 8 mg/dL (8-22); CALCIUM 6.9 mg/dL (8.8-10.2); CHLORIDE 102 mmol/L (98-107); COSMO 285; GOT 144 U/L (10-30); GPT 58 U/L (10-36); POTASSIUM 3.1 mmol/L (3.5-5.1); SODIUM 143 mmol/L (136-145); TCO2 27 mmol/L (25-35); TOTAL BILIRUBIN 16.64 mg/dL (0.20-1.00); TOTAL PROTEIN 4.5 g/dL (6.3-8.3)
[2016-12-24] MEDS ORDERED: POTASSIUM CHLORIDE 60 MEQ in NS 500 ML IV ONE (07:27)
--- NOTE | 2016-12-24 07:33 | Diag Imaging Result Doc PS360 ---
CHEST-PORTABLE - 12/24/2016 INDICATION: Change of oxygen saturation TECHNIQUE: COMPARISON: Chest CT 12/21/2016 FINDINGS: There are moderate pleural effusions. There are some slight infiltrates as well. Lung volumes are very low. The appearance is very similar to prior. IMPRESSION: Little change from prior. Electronically signed by Young Sharp 12/24/2016 7:30 AM
[2016-12-24 07:37] LABS: BANDS 4 % (0-1); EOS 4 % (1-10); LYMPHS 18 % (21-51); MONO 4 % (1-9); NRBC 2 % (0-0)
--- NOTE | 2016-12-24 07:47 | Diag Imaging Result Doc PS360 ---
US ABDOMEN-COMPLETE - 12/23/2016 INDICATION: new abd mass in epigastrium COMPARISON: Ultrasound from 12/22/2016, CT from 12/21/2016 FINDINGS: Stable severe fatty change of the liver. Stable severely dilated gallbladder with some sludge internally. The gallbladder measures 12.1 x 3.4 cm. Common bile duct is normal measuring 5 mm. Pancreas is obscured. Spleen size remains normal. The spleen measures 10.5 x 10.3 x 6.4 cm. Both kidneys are normal. No definite free fluid. IMPRESSION: 1. Severe hepatic steatosis. 2. Dilated gallbladder with internal sludge similar to prior. Electronically signed by Young Sharp 12/24/2016 7:45 AM
[2016-12-24] MEDS ORDERED: VITAMIN K 10 MG in NS 50 ML IV ONE (08:01)
[2016-12-24] MEDS: DILAUDID IV PRN ×3 (08:28→21:20)
[2016-12-24] MEDS: NICODERM PATCH TD SCH (08:50)
[2016-12-24] MEDS: FOLIC ACID 1 MG in NS 50.0 ML IV SCH (09:00)
[2016-12-24] MEDS ORDERED: CALCIUM GLUCONATE 1 GM in NS 50 ML IV ONE (09:06)
[2016-12-24] MEDS: TRENTAL PO SCH ×3 (09:33→19:15)
[2016-12-24] MEDS: THERA M PLUS PO SCH (09:47)
[2016-12-24] MEDS ORDERED: NS 250 ML ONE (10:03)
[2016-12-24 10:53] LABS: HEMATOCRIT 30.7 % (37.0-47.0); HEMOGLOBIN 9.6 g/dL (12.0-16.0)
[2016-12-24] MEDS: NS 250 ML IV SCH ×2 (11:31→23:27)
[2016-12-24] MEDS: XOPENEX NEB INH SCH ×3 (11:38→21:00)
[2016-12-24] MEDS: PROTONIX 80 MG in NS 80 ML IV SCH ×2 (11:43→21:12)
[2016-12-24] MEDS: ATIVAN 20 MG in NS 190 ML IV SCH (11:43)
--- NOTE | 2016-12-24 12:22 | PROGRESS NOTE ---
DATE: 12/24/2016 ATTENDING PHYSICIAN: Dr. Dolan. PRIMARY CARE PHYSICIAN: Briana Lenz. PRIMARY HOME HELP AIDE: Dr. Faria. SUBJECTIVE: Patient currently resting in bed. She is sleepy. She is on nonrebreather today. We initially scheduled her for EGD but we canceled it as the patient is requiring higher oxygen and is on a nonrebreather at this time. Her family, her and her mother-in- law are present at the bedside. No fevers, rigors, or chills reported overnight. She was listed to have 1 dark stool this morning. So far, she has received 1 unit of blood transfusion and 2 units of FFP. PHYSICAL EXAMINATION: Vitals: Temperature of 96.6 degrees, pulse rate of 85, respiratory rate of 33, blood pressure 140/89, saturating 94% on 100% nonrebreather. Body weight of 139 pounds. BMI 27.1 kg. General Appearance: Thinly built, lying in bed, in no acute distress. Has a face mask, a nonrebreather mask. She is currently sleepy but was able to wake up for a few seconds on commands but then went back to sleep. HEENT: Pale conjunctivae. Icteric sclerae. Neck: Supple. Chest: Decreased in the bases. Cardiovascular: Tachycardic. Abdomen : Distended. Prominent veins seen in the abdominal wall. Positive mass felt in the right upper quadrant, likely gallbladder. Bowel sounds are present. Extremities: No cyanosis, clubbing. She is in restraints. Neurologic: She is currently sleepy. LABS: Hemoglobin and hematocrit are 7.2 and 24.1, white count of 11.96, platelet count of 141,000, MCV of 121.1. INR of 1.4, PT of 15.5, PTT of 37.3. Sodium of 140, potassium 3.1, chloride 102, bicarb 27, anion gap of 14, BUN of 8, creatinine 0.2, glucose of 126, calcium is 6.9, phosphorus 3.6, magnesium 3.3. Total bilirubin is 16.64, AST 144, ALT 50, alkaline phosphatase is 211, ammonia of 64, total protein of 4.5, albumin of 2.1. B12 of more than 2000, folate of 3.3, lipase of 72, amylase of 37. Urinalysis showing trace protein, trace blood, trace bilirubin, trace leukocytes. Urine toxicology screen is negative. Ultrasound of the abdomen done on 12/23/2016 showed severe hepatic steatosis, stable severely dilated gallbladder with some sludge internally 2 x 3.4 cm, CBD measuring 5 mm. Spleen size appeared normal. Spleen measuring 10.5 x 10.3 x 6.4 cm. Both kidneys are normal. IMPRESSION AND PLAN: 1. Alcoholic liver disease, likely liver cirrhosis versus acute alcoholic hepatitis. The patient will be continued on pentoxifylline 400 mg three times a day. We will avoid hepatotoxic drugs. We will continue to watch her hemoglobin and hematocrit, and INR, and platelet count, and liver numbers. 2. Gastrointestinal bleed, melena, which is slowing down. We will keep her on Protonix and octreotide drip. Correct her INR, give her a dose of vitamin K, and schedule for EGD tomorrow if her respiratory status improves. 3. Delirium tremens. She is currently in restraints and she is on an Ativan drip. She is requiring higher oxygen. She may need intubation if her respiratory status continues to decline. We will leave it to the discretion of primary care team. 4. Hyperammonemia, likely secondary to alcoholic liver disease. We will start her on lactulose enemas once daily and check. Follow the ammonia levels. 5. Chronic smoker. She is currently on nebulizer treatments. 6. Macrocytic anemia secondary to alcoholic liver disease. 7. Alcohol abuse. According to the family, she has gone to the rehab twice but has failed to comply and her last drink was 6 days ago. 8. History of gastric bypass in 2004 complicated with anastomotic ulceration requiring resection of the ulcer a year ago by Dr. Parkinson. In this regard, she will continue to avoid nonsteroidal anti-inflammatory drugs on discharge. Continue proton pump inhibitors. 9. The above plans were discussed with the patient and the patient's family at bedside. All questions were answered. 10. Distended gallbladder on ultrasound, being followed by Dr. Hathaway. Further recommendations to follow pending further findings. cc: MD Barbie Wan MD Manish Arora, MD MTDD
--- NOTE | 2016-12-24 13:45 | PROGRESS NOTE ---
DATE: 12/24/2016 SUBJECTIVE: The patient's respiratory status declined overnight and she is now on a non- rebreather. She is having dark tarry stools as well. Starting her on an Ativan drip for DT's. OBJECTIVE: Vital Signs: Temperature 97.3 degrees, blood pressure 101/68, heart rate 87, respirations 21, O2 saturations 99% on nonrebreather. General: This is a chronically ill- appearing, jaundiced female lying in bed, in no acute distress. Head: Normocephalic, atraumatic. Skin: Positive for jaundice. Heart: S1, S2 normal. Regular rate and rhythm. Lungs: Coarse breath sounds bilaterally. No crackles. No rales. Abdomen: Distended, positive bowel sounds. Nontender. Extremities: No edema. No cyanosis. No calf tenderness. Neurologic: The patient is lethargic, but does move all 4 extremities. LABORATORY: White blood cell count 11, hemoglobin 9.3, hematocrit 30, platelets 141,000. Sodium 143, potassium 3.1, chloride 102, CO2 27, BUN 8, creatinine 0.3, glucose 126, calcium 6.9, magnesium 3.3, total bilirubin 16, AST 144, ALT 58, alkaline phosphatase 211, ammonia 64, albumin 2.1. INR 1.4. ASSESSMENT AND PLAN: 1. Acute hypoxemic respiratory failure. Multifactorial. The patient is currently on a nonrebreather mask. We will continue with bronchodilator therapy. Pulmonary has been consulted for further assistance. 2. Delirium tremens. Continue on the alcohol withdrawal protocol. 3. Gastrointestinal bleed. The patient is currently on an octreotide and Protonix drip. Gastroenterology is following closely. 4. Anemia of acute blood loss. We will continue to monitor the patient's hemoglobin and hematocrit closely and transfuse p.r.n. 5. Alcoholic liver disease. Aware. 6. Coagulopathy. The patient is now on vitamin K. 7. Hypocalcemia. We will give the patient a dose of calcium gluconate. 8. Urinary tract infection secondary to Klebsiella. Continue on Zosyn. 9. Tobacco dependence. Continue on the NicoDerm patch. 10. Hepatic encephalopathy. The patient has been started on lactulose enema by the online media director. 11. The patient is a full code. The patient is critically ill with a high risk of mortality. The patient's and family were updated at the bedside this morning. cc: Elo Dolan MD
--- NOTE | 2016-12-24 13:52 | CONSULTATION ---
DATE OF CONSULTATION: 12/24/2016 REQUESTING PHYSICIAN: Dr. Dolan. REASON FOR CONSULTATION: Respiratory failure. HISTORY OF PRESENT ILLNESS: Ms. Longoria is a 46-year-old white female, 15 pack year history for tobacco with continued tobacco use, long history of alcohol abuse with ongoing alcohol consumption, who presented to the emergency room with abdominal distention and pain, along with jaundice. CT scan of the thorax, abdomen, and pelvis was performed which revealed bilateral pleural effusions and atelectasis. CT scan of the abdomen revealed severe hepatic steatosis with distended gallbladder and an area of extraluminal gas anterior to the pelvis, source unknown. Gallbladder had no significant inflammation noted on CT scan. Ultrasound of the abdomen was performed which revealed. No evidence of sonographic Kerr sign with no significant gallbladder thickening or pericholecystic fluid. Surgery has been following. Patient's mental status is poor and her oxygen requirements have increased. PAST MEDICAL HISTORY: 1. Alcohol abuse with prior rehab stays which have failed. 2. Status post gastric bypass. 3. Status post hysterectomy. 4. Chronic low back pain, on a fentanyl patch. SOCIAL HISTORY: Ongoing tobacco and alcohol use. She has an attentive . FAMILY HISTORY: Noncontributory to current presentation. REVIEW OF SYSTEMS: Could not be obtained. PHYSICAL EXAMINATION: General: Reveals a jaundiced female who is moaning but is in no distress. Vital Signs: Blood pressure 101/58, heart rate 87 and regular, respiratory rate 20, oxygen saturation 99% on nonrebreather. HEENT: Pupils are equal. Sclerae are icteric. Oropharynx is dry. Neck: Supple. Chest: Reveals scattered rhonchi bilaterally. Cardiac Exam: Distant heart sounds. Normal S1. Normal S2. Abdomen: Mildly distended with firmness in the right upper quadrant. No focal tenderness identified. Air or crepitus could not be identified in the pelvis. Extremities: Reveal edema in the hands greater than the feet. LABORATORIES: Chest x-ray reveals moderate effusions with infiltrates, left greater than right. Arterial blood gas reveals pH 7.40, pCO2 of 52, PO2 of 67. Chemistry: Sodium 143, potassium 3.1, chloride 102, bicarbonate 27, BUN 8, creatinine 0.3, total bilirubin 16.6, AST 144, ALT 58, alkaline phosphatase 211. Ammonia is elevated at 64. Albumin 2.1. White blood count 11.96, hemoglobin 7.2. Urine is positive for Klebsiella pneumonia. IMPRESSION: This is a 46-year-old with alcohol abuse, liver failure, pleural effusions, altered mental status, protein calorie malnutrition (moderate), acute hypoxemic respiratory failure, unusual area of air in the abdomen as outlined above. Her pulmonary status is marginal and she may require intubation and mechanical ventilation if she has clinical decline. Her oxygen requirements have increased but she is approximately 5 L fluid positive over the last 48 hours. RECOMMENDATIONS: 1. Continue oxygen to maintain saturation greater than 90%. 2. Attempt albumin and Lasix diuresis in an attempt to keep patient off mechanical ventilation. 3. Continue antibiotics for urinary tract infection as you are doing. 4. Agree with current sedation protocol. 5. Intubation and mechanical ventilation if she has clinical decline. cc: Rob Baires MD
[2016-12-24] MEDS: ALBUMIN 25% IV SCH ×2 (14:10→20:25)
[2016-12-24] MEDS: LASIX IV SCH ×2 (14:15→20:25)
[2016-12-24] MEDS: LACTULOSE MISC SCH (14:19)
[2016-12-24 16:35] LABS: BASO% 0.2 % (0.0-0.8); EOS# 0.07 X1000 (0.0-0.7); EOS% 0.6 % (0.0-10.0); HEMATOCRIT 29.8 % (37.0-47.0); HEMOGLOBIN 9.3 g/dL (12.0-16.0); IMM GRAN# 0.07 X1000 (0.0-0.04); IMM GRAN% 0.6 % (0.0-0.5); LYMPH# 0.96 X1000 (1.2-3.4); LYMPH% 7.8 % (20.5-51.1); MANUAL DIFF NEEDED? YES; MCH 35.6 PG (27-31); MCHC 31.2 g/dL (33-37); MCV 114.2 FL (81-99); MONO# 0.51 X1000 (0.11-0.59); MONO% 4.2 % (1.7-9.3); MPV 11.5 FL (7.4-10.4); NEUT% 86.6 % (42.2-75.2); PLT 140 X1000 (130-400); RBC 2.61 XMIL (4.2-5.4)
[2016-12-24 16:53] LABS: BANDS 2 % (0-1); LYMPHS 6 % (21-51); MONO 4 % (1-9)
[2016-12-24] MEDS: NEO-SYNEPHRINE 50 MG in NS 250 ML IV SCH (17:35)
[2016-12-24 22:02] LABS: BASO% 0.2 % (0.0-0.8); EOS# 0.09 X1000 (0.0-0.7); EOS% 0.7 % (0.0-10.0); HEMATOCRIT 30.9 % (37.0-47.0); HEMOGLOBIN 9.6 g/dL (12.0-16.0); IMM GRAN# 0.08 X1000 (0.0-0.04); IMM GRAN% 0.6 % (0.0-0.5); LYMPH# 0.88 X1000 (1.2-3.4); LYMPH% 7.1 % (20.5-51.1); MANUAL DIFF NEEDED? YES; MCH 35.3 PG (27-31); MCHC 31.1 g/dL (33-37); MCV 113.6 FL (81-99); MONO# 0.63 X1000 (0.11-0.59); MONO% 5.1 % (1.7-9.3); MPV 11.3 FL (7.4-10.4); NEUT% 86.3 % (42.2-75.2); PLT 151 X1000 (130-400); RBC 2.72 XMIL (4.2-5.4)
[2016-12-24 22:32] LABS: BANDS 3 % (0-1); LYMPHS 11 % (21-51); MONO 7 % (1-9); POLYCHROM 1+
[2016-12-25] MEDS: ATIVAN 20 MG in NS 190 ML IV SCH (00:09)
[2016-12-25] MEDS: ALBUMIN 25% IV SCH (02:24)
[2016-12-25] MEDS: LASIX IV SCH (02:24)
[2016-12-25] MEDS: DILAUDID IV PRN (02:28)
[2016-12-25] MEDS: ZOSYN 3.375 GM/NS 3.375 GM/50 ML IVPB IV SCH ×4 (03:18→20:54)
[2016-12-25] MEDS: XOPENEX NEB INH SCH (03:41)
[2016-12-25] MEDS: SANDOSTATIN 500 MICROGM in D5W 100 ML IV SCH ×2 (03:45→16:17)
[2016-12-25] MEDS: LIBRIUM PO SCH ×4 (03:46→22:44)
[2016-12-25 04:56] LABS: INR 1.71; PROTIME 18.6 Seconds (9.2-11.7)
[2016-12-25 05:00] LABS: ALLEN TEST YES; BE 18.7 mmoll (-3.0-3.0); BLOOD TYPE ARTERIAL; DRAW SITE R RADIAL; PO2(98.6) 56 mmHg (60-100); SAMPLE BLOOD; THB < 3.0 g/dL (11.5-17.4)
[2016-12-25 05:00] LABS: BASO% 0.2 % (0.0-0.8); EOS% 0.9 % (0.0-10.0); HEMATOCRIT 29.2 % (37.0-47.0); HEMOGLOBIN 9.1 g/dL (12.0-16.0); IMM GRAN# 0.06 X1000 (0.0-0.04); IMM GRAN% 0.5 % (0.0-0.5); LYMPH# 0.97 X1000 (1.2-3.4); LYMPH% 8.7 % (20.5-51.1); MANUAL DIFF NEEDED? NO; MCH 35.5 PG (27-31); MCHC 31.2 g/dL (33-37); MCV 114.1 FL (81-99); MONO# 0.61 X1000 (0.11-0.59); MONO% 5.5 % (1.7-9.3); MPV 11.1 FL (7.4-10.4); NEUT% 84.2 % (42.2-75.2); PLT 147 X1000 (130-400); RBC 2.56 XMIL (4.2-5.4)
[2016-12-25 05:01] LABS: PCO2(98.6) 58 mmHg (35-45)
[2016-12-25 05:02] LABS: MODALITY NRB
[2016-12-25 05:36] LABS: AGAP 15; ALBUMIN 3.3 g/dL (3.5-5.0); ALKALINE PHOSPHATASE 175 U/L (32-104); BUN 5 mg/dL (8-22); CALCIUM 7.9 mg/dL (8.8-10.2); CHLORIDE 98 mmol/L (98-107); COSMO 296; GOT 121 U/L (10-30); GPT 46 U/L (10-36); SODIUM 151 mmol/L (136-145); TCO2 38 mmol/L (25-35); TOTAL BILIRUBIN 20.15 mg/dL (0.20-1.00); TOTAL PROTEIN 5.4 g/dL (6.3-8.3)
[2016-12-25] MEDS ORDERED: NS 1,000 ML IV ONE (06:31)
[2016-12-25] MEDS: DIPRIVAN 1% 1,000 MG/100 ML BOTTLE IV SCH ×3 (07:18→23:34)
--- NOTE | 2016-12-25 07:28 | Diag Imaging Result Doc PS360 ---
EXAM: CHEST-PORTABLE INDICATION: abnormal exam TECHNIQUE: One view COMPARISON: 12/24/2016 FINDINGS: The lung volumes remain low. There has been interval placement of a left PICC line. The tip projects over the lower SVC just superior to the atriocaval junction in expected position. There has been interval worsening of bilateral infiltrates that are now seen diffusely throughout both lungs, probably representing pulmonary edema +/- pneumonia. Pleural effusions are essentially stable. Cardiac silhouette is stable. IMPRESSION: Interval placement of left PICC line and interval worsening of bilateral infiltrates. Electronically signed by Anam Eubanks 12/25/2016 7:26 AM
[2016-12-25] MEDS ORDERED: POTASSIUM CHLORIDE 40 MEQ/SWI 40 MEQ/100 ML IVPB IV ONE (07:35)
--- NOTE | 2016-12-25 07:41 | Diag Imaging Result Doc PS360 ---
EXAM: CHEST/ABD TUBE PLACEMENT INDICATION: ETT placement TECHNIQUE: One view COMPARISON: 12/25/2016 FINDINGS: There has been interval intubation. The tip of the ET tube projects over the trachea and above the buffy at about the T5 level. The left PICC line is in stable position. There is better inspiration on the current study. Diffuse infiltrates seen on the very recent previous study appear to have improved, especially on the right. This may be due to better inspiration, at least in part. No new consolidations are appreciated cardiac silhouette is stable. IMPRESSION: 1.Interval intubation as described. 2.Slightly better inspiration and decrease in prominence of the diffuse bilateral infiltrates. Electronically signed by Anam Eubanks 12/25/2016 7:38 AM
[2016-12-25] MEDS: LACTULOSE MISC SCH (07:52)
[2016-12-25] MEDS: NICODERM PATCH TD SCH (08:09)
[2016-12-25] MEDS ORDERED: MAGNESIUM SULFATE 2 GM/S.W.I. 2 GM/50 ML IVPB IV ONE (08:46)
[2016-12-25 09:41] LABS: ALLEN TEST YES; BE 18.5 mmoll (-3.0-3.0); BLOOD TYPE ARTERIAL; DRAW SITE R RADIAL; O2(CT) 12.5 mL/dL (15.0-23.0); PCO2(98.6) 49 mmHg (35-45); PO2(98.6) 64 mmHg (60-100); SAMPLE BLOOD; SRATE 12 BPM; THB 9.4 g/dL (11.5-17.4); TVOL 600 mL; pH(98.6) 7.55 (7.35-7.45)
[2016-12-25 09:42] LABS: MODALITY VENTILATOR
[2016-12-25] MEDS: FOLIC ACID 1 MG in NS 50.0 ML IV SCH (09:44)
[2016-12-25] MEDS: PROTONIX 80 MG in NS 80 ML IV SCH ×2 (09:44→17:38)
[2016-12-25] MEDS: NEO-SYNEPHRINE 50 MG in NS 250 ML IV SCH (09:44)
[2016-12-25] MEDS: D5 1/2 NS 1,000 ML IV SCH ×2 (10:11→23:34)
--- NOTE | 2016-12-25 10:12 | Diag Imaging Result Doc PS360 ---
EXAM: CHEST/ABD TUBE PLACEMENT INDICATION: NG placement TECHNIQUE: One view COMPARISON: 12/25/2016 FINDINGS: There is a newly placed NG tube. The tip projects well below the diaphragm and is assumed to be in the lumen of the stomach in expected position. ET tube and left PICC line are stable. The lungs are overpenetrated due to focus on the NG tube. They're probably stable given differences in exposure. Cardiac silhouette is stable. IMPRESSION: Interval placement of NG tube as described. Electronically signed by Anam Eubanks 12/25/2016 10:10 AM
--- NOTE | 2016-12-25 10:14 | PROGRESS NOTE ---
DATE: 12/25/2016 SUBJECTIVE: This 46-year-old presented to the emergency room complaining of abdominal distention, abdominal pain, jaundice. She was admitted on 12/22/2016. Admitted for liver failure. OBJECTIVE: Today, she was intubated. Respiratory difficulty. Liver enzymes continue to be elevated. She has a macrocytic anemia, leukocytosis, underlying urinary tract infection, long history of alcohol. EXAMINATION: Today, temperature 97.4 degrees, pulse 94, respirations 30, blood pressure 98/61. Pupils are equal and round. Lungs are clear in all childs. Cardiovascular: Regular rate without murmurs or S3. Abdomen is soft. Skin is warm and dry. Urine output 9 L. LABORATORY DATA: White count 11,120. Hematocrit 29, platelet count 147,000. Sodium 151, potassium 2.0, chloride 98, bicarb 38. BUN 5, creatinine 0.6. Magnesium 2.4. Total bilirubin 20,150 with GGT is 121. AST and ALT: AST is 46 and ALT is 175. Chest x-ray from this morning: Interval placement of PICC line. Interval worsening of bilateral infiltrates. NG tube. ASSESSMENT AND PLAN: 1. A 46-year-old, 15-year pack history of tobacco. Continued tobacco long history and long history of alcohol abuse and ongoing alcohol consumption. He presented to the emergency room with abdominal distention and pain along with pleural effusion with atelectasis. CT of the abdomen revealed severe hepatic steatosis and distended gallbladder and area of extraluminal gas anterior to the pelvis, source unknown. The gallbladder had no significant inflammation on CT scan. Ultrasound of the abdomen was performed and revealed no evidence of significant gallbladder thickening and apparent cholecystitis. The patient now intubated for respiratory failure. I do not think pulmonary edema. 2. Alcoholic cirrhosis, and I suspect portal hypertension. 3. Status post gastric bypass surgery in the past. 4. Chronic lower back pain. On looking at orders, I do not know if I see anything we need to change at this point. We will supplement potassium and magnesium. cc: Adriano Wick MD
[2016-12-25 10:21] LABS: BASO% 0.4 % (0.0-0.8); EOS# 0.06 X1000 (0.0-0.7); EOS% 0.6 % (0.0-10.0); HEMOGLOBIN 9.3 g/dL (12.0-16.0); IMM GRAN# 0.05 X1000 (0.0-0.04); IMM GRAN% 0.5 % (0.0-0.5); LYMPH# 0.89 X1000 (1.2-3.4); MANUAL DIFF NEEDED? YES; MCH 35.5 PG (27-31); MCV 114.5 FL (81-99); MPV 11.6 FL (7.4-10.4); NEUT% 85.5 % (42.2-75.2); PLT 128 X1000 (130-400); RBC 2.62 XMIL (4.2-5.4)
[2016-12-25] MEDS ORDERED: QUELICIN (DOSE) ONE (11:18)
[2016-12-25 11:24] LABS: BANDS 4 % (0-1); LYMPHS 12 % (21-51); MONO 2 % (1-9)
[2016-12-25] MEDS: TRENTAL PO SCH ×3 (11:26→17:38)
[2016-12-25] MEDS: THERA M PLUS PO SCH (11:26)
[2016-12-25] MEDS: DUONEB (A & A) INH SCH ×4 (11:41→23:01)
--- NOTE | 2016-12-25 11:53 | PROGRESS NOTE ---
DATE: 12/25/2016 Ms. Longoria is a 46-year-old. She is a patient of Dr. Briana Lenz. Presented to the emergency room on 12/22/2016 with complaints of abdominal distention, abdominal pain, and jaundice. It started approximately a week ago. States that it progressively has been getting worse, having bilateral flank pain. cc: Adriano Wick MD
[2016-12-25] MEDS: NS 250 ML IV SCH (13:48)
[2016-12-25 16:26] LABS: BASO% 0.2 % (0.0-0.8); EOS# 0.12 X1000 (0.0-0.7); EOS% 0.9 % (0.0-10.0); HEMATOCRIT 32.4 % (37.0-47.0); IMM GRAN# 0.05 X1000 (0.0-0.04); IMM GRAN% 0.4 % (0.0-0.5); LYMPH# 1.44 X1000 (1.2-3.4); LYMPH% 11.3 % (20.5-51.1); MANUAL DIFF NEEDED? YES; MCH 35.5 PG (27-31); MCHC 30.9 g/dL (33-37); MCV 114.9 FL (81-99); MONO# 0.63 X1000 (0.11-0.59); MONO% 4.9 % (1.7-9.3); MPV 11.7 FL (7.4-10.4); NEUT% 82.3 % (42.2-75.2); PLT 147 X1000 (130-400); RBC 2.82 XMIL (4.2-5.4)
[2016-12-25] MEDS: LACTULOSE PO SCH (16:42)
[2016-12-25 16:48] LABS: LYMPHS 9 % (21-51); MONO 5 % (1-9)
[2016-12-25 16:59] LABS: AGAP 16; BUN 5 mg/dL (8-22); CALCIUM 7.8 mg/dL (8.8-10.2); CHLORIDE 96 mmol/L (98-107); COSMO 289; SODIUM 146 mmol/L (136-145); TCO2 34 mmol/L (25-35)
[2016-12-25 17:12] LABS: POTASSIUM 2.5 mmol/L (3.5-5.1)
[2016-12-25] MEDS: POTASSIUM CHLORIDE 40 MEQ/SWI 40 MEQ/100 ML IVPB IV SCH (17:38)
[2016-12-25] MEDS: DURAGESIC 75 MICROGM/HR PATCH TD SCH (21:21)
[2016-12-25 22:14] LABS: BASO% 0.4 % (0.0-0.8); EOS# 0.14 X1000 (0.0-0.7); EOS% 1.1 % (0.0-10.0); HEMATOCRIT 31.6 % (37.0-47.0); HEMOGLOBIN 9.9 g/dL (12.0-16.0); IMM GRAN# 0.05 X1000 (0.0-0.04); IMM GRAN% 0.4 % (0.0-0.5); LYMPH# 1.37 X1000 (1.2-3.4); MANUAL DIFF NEEDED? YES; MCH 35.4 PG (27-31); MCHC 31.3 g/dL (33-37); MCV 112.9 FL (81-99); MONO# 0.58 X1000 (0.11-0.59); MONO% 4.7 % (1.7-9.3); MPV 11.1 FL (7.4-10.4); NEUT% 82.4 % (42.2-75.2); PLT 127 X1000 (130-400)
[2016-12-25 22:43] LABS: BANDS 8 % (0-1); LYMPHS 8 % (21-51); MONO 4 % (1-9)
[2016-12-25 22:44] LABS: HYPOCHROM OCCASIONAL
[2016-12-25 22:45] LABS: TARGET CELLS OCCASIONAL
[2016-12-25 22:46] LABS: POLYCHROM 1+
[2016-12-26] MEDS: SANDOSTATIN 500 MICROGM in D5W 100 ML IV SCH ×3 (00:33→20:47)
[2016-12-26] MEDS: PROTONIX 80 MG in NS 80 ML IV SCH ×2 (00:35→09:42)
[2016-12-26] MEDS ORDERED: NS 500 ML IV ONE (01:22)
[2016-12-26] MEDS: POTASSIUM CHLORIDE 40 MEQ/SWI 40 MEQ/100 ML IVPB IV SCH (01:53)
[2016-12-26] MEDS: DUONEB (A & A) INH SCH ×6 (03:30→23:06)
[2016-12-26] MEDS: ZOSYN 3.375 GM/NS 3.375 GM/50 ML IVPB IV SCH ×4 (03:38→21:32)
[2016-12-26 04:29] LABS: ALLEN TEST YES; BE 8.9 mmoll (-3.0-3.0); BLOOD TYPE ARTERIAL; DRAW SITE R RADIAL; METHB 0.9 % (0.0-1.5); PCO2(98.6) 49 mmHg (35-45); PO2(98.6) 112 mmHg (60-100); SAMPLE BLOOD; SAO2 100.2 % (95.0-100.0); SRATE 8 BPM; THB 10.1 g/dL (11.5-17.4); TVOL 600 mL; pH(98.6) 7.45 (7.35-7.45)
[2016-12-26 04:46] LABS: MODALITY VENTILATOR
[2016-12-26] MEDS ORDERED: NS 250 ML IV ONE (04:55)
[2016-12-26] MEDS: LIBRIUM PO SCH ×4 (05:03→21:31)
[2016-12-26] MEDS ORDERED: NS 500 ML ONE (05:14)
[2016-12-26 06:10] LABS: BASO% 0.4 % (0.0-0.8); EOS# 0.19 X1000 (0.0-0.7); EOS% 1.6 % (0.0-10.0); HEMATOCRIT 31.7 % (37.0-47.0); HEMOGLOBIN 9.8 g/dL (12.0-16.0); IMM GRAN# 0.08 X1000 (0.0-0.04); IMM GRAN% 0.7 % (0.0-0.5); LYMPH# 1.52 X1000 (1.2-3.4); LYMPH% 12.6 % (20.5-51.1); MANUAL DIFF NEEDED? YES; MCH 35.5 PG (27-31); MCHC 30.9 g/dL (33-37); MCV 114.9 FL (81-99); MONO# 0.68 X1000 (0.11-0.59); MONO% 5.6 % (1.7-9.3); MPV 12.1 FL (7.4-10.4); NEUT% 79.1 % (42.2-75.2); PLT 134 X1000 (130-400); RBC 2.76 XMIL (4.2-5.4)
[2016-12-26 06:34] LABS: ALBUMIN 2.5 g/dL (3.5-5.0); CALCIUM 7.6 mg/dL (8.8-10.2); POTASSIUM 3.1 mmol/L (3.5-5.1); TOTAL BILIRUBIN 18.98 mg/dL (0.20-1.00)
[2016-12-26] MEDS ORDERED: NEUTRA-PHOS PO ONE ×2 (06:45→20:00)
[2016-12-26 07:17] LABS: BANDS 8 % (0-1); EOS 2 % (1-10); LYMPHS 20 % (21-51); MONO 4 % (1-9)
[2016-12-26 07:18] LABS: HYPOCHROM 1+
--- NOTE | 2016-12-26 07:28 | Diag Imaging Result Doc PS360 ---
EXAM: CHEST-PORTABLE INDICATION: respiratory failure TECHNIQUE: One view COMPARISON: 12/25/2016 FINDINGS: Support tubes and lines are in stable positions. There has been interval improvement of the diffuse bilateral infiltrates seen previously. There are no new consolidations. Cardiac silhouette is stable. IMPRESSION: Interval improvement of bilateral diffuse infiltrates. Electronically signed by Anam Eubanks 12/26/2016 7:25 AM
[2016-12-26] MEDS ORDERED: SODIUM PHOSPHATE 20 MMOL in NS 250 ML IV ONE (09:00)
[2016-12-26] MEDS: LACTULOSE PO SCH ×3 (09:03→16:06)
[2016-12-26] MEDS: TRENTAL PO SCH ×3 (09:04→16:06)
[2016-12-26] MEDS: THERA M PLUS PO SCH (09:04)
[2016-12-26] MEDS: FOLIC ACID 1 MG in NS 50.0 ML IV SCH (09:19)
--- NOTE | 2016-12-26 09:33 | PROGRESS NOTE ---
DATE: 12/26/2016 SUBJECTIVE: Ms. Longoria is intubated. Urine output had gone down yesterday. She is sedated. Her father is at the bedside. OBJECTIVE: Vital Signs: Temperature 98.5, pulse 78, respirations 23, blood pressure 93/58. Neck: I do not appreciate distended neck veins. Lungs: Clear anterolateral. Cardiovascular Examination: Regular rhythm and rate without murmur or S3. Abdomen: Soft. Skin: Is warm and dry. Is and Os: Good urine output, almost 4 L but last night, urine output started going down by report looking Is and Os. Diagnostic Data: Chest x-ray from this morning, interval improvement of bilateral diffuse infiltrates. NG tube placement from yesterday, ET tube and left PICC line are stable. Tip of the NG tube protrudes below the diaphragm. ASSESSMENT AND PLAN: 1. A 46-year-old with a 15 pack year history of tobacco, long history of alcohol abuse with hepatic failure, alcohol cirrhosis. CT revealed severe hepatic steatosis consistent with alcohol cirrhosis. 2. Status post gastric bypass surgery in the past. Aware. 3. Chronic lower back pain. 4. Respiratory failure. Dr. Baires is following. 5. We will watch renal function closely. I do want to supplement the phosphorus. She has pleural effusions that appear to be improving. 6. Protein calorie malnutrition. Need to start nasogastric feeding. 7. Review of orders. Patient on pentoxifylline ER 4 mg by mouth three times a day per Dr. Wilson, Protonix 40 mg intravenous every 12 hours, on Zosyn 3.375 mg intravenous every 6, potassium chloride 40 mEq was given 1 time yesterday, magnesium sulfate 2 g intravenous was given once yesterday, lactulose 30 mL by mouth three times a day. She has Ativan 2 mg intravenous every 1 hour as needed. May be going through alcohol withdrawal as well. cc: Adriano Wick MD
[2016-12-26] MEDS: NEO-SYNEPHRINE 50 MG in NS 250 ML IV SCH ×2 (09:42→14:57)
[2016-12-26 10:42] LABS: BASO% 0.7 % (0.0-0.8); EOS# 0.18 X1000 (0.0-0.7); EOS% 1.5 % (0.0-10.0); HEMATOCRIT 32.4 % (37.0-47.0); HEMOGLOBIN 9.8 g/dL (12.0-16.0); IMM GRAN# 0.08 X1000 (0.0-0.04); IMM GRAN% 0.7 % (0.0-0.5); LYMPH# 1.96 X1000 (1.2-3.4); LYMPH% 16.3 % (20.5-51.1); MANUAL DIFF NEEDED? YES; MCH 35.1 PG (27-31); MCHC 30.2 g/dL (33-37); MCV 116.1 FL (81-99); MONO# 0.74 X1000 (0.11-0.59); MONO% 6.2 % (1.7-9.3); NEUT% 74.6 % (42.2-75.2); PLT 120 X1000 (130-400); RBC 2.79 XMIL (4.2-5.4)
[2016-12-26 11:08] LABS: BANDS 6 % (0-1); EOS 2 % (1-10); LYMPHS 22 % (21-51)
[2016-12-26] MEDS: D5W 1,000 ML IV SCH (11:40)
--- NOTE | 2016-12-26 12:05 | PROGRESS NOTE ---
DATE: 12/25/2016 SUBJECTIVE: The patient is intubated and sedated. Nurses tried to give enema however she has an NG tube. I changed the lactulose through NG. There is very little coming out through the NG tube. OBJECTIVE: Vital Signs: Temperature 98.5 degrees, pulse 78, respirations 23, blood pressure 93/58. Heart: Normal first and second heart sounds. Lungs: Clear. Abdomen: No organomegaly or ascites. LABORATORY DATA: There is improvement of the bilateral infiltrates. NG tube is in good shape. EG tube and left PICC line stable. IMPRESSION: 1. Hepatic encephalopathy status post intubation. We have started the lactulose. Instead of enemas, we will give it through the NG. 2. Status post gastric bypass. 3. Respiratory failure. 4. Renal impairment. 5. Protein calorie and malnutrition. IMPRESSION AND PLAN: If she tolerates the NG tube and her respiratory failure improves and she becomes alert we will continue the same. Otherwise we can add rifaximin. Will follow with you. cc: Marisel Ivey MD
[2016-12-26] MEDS: DILAUDID IV PRN ×2 (13:46→21:32)
[2016-12-26] MEDS ORDERED: ALBUMIN 25% IV ONE (15:49)
--- NOTE | 2016-12-26 17:34 | PROGRESS NOTE ---
DATE: 12/26/2016 SUBJECTIVE: The patient is lying in bed. She is intubated, ventilated, and sedated. Her son is present at the bedside. According to the nursing records no nausea or vomiting reported. She had a low-grade fever 100.6 reported today. She has been having bowel movements which are liquid green. She is getting NG tube feeding as well as lactulose through the NG tube. OBJECTIVE: Vital signs: Temperature 100.6, pulse rate of 94, respiratory rate of 13, blood pressure 196/52, saturating 94% on mechanical ventilation. FiO2 of 55%. Body weight 118 pounds 9.6 ounces. General appearance: Thinly built, lying in bed, intubated, ventilated, and sedated. HEENT: Pale conjunctivae. Icteric sclerae. Positive ET tube. Positive NG tube. Neck: Supple. Abdomen: Mildly protuberant. Visible abdominal wall veins were noted. Bowel sounds are present. Extremities: No cyanosis or clubbing. Skin: Diffuse icterus noted of the skin. Neurologic: She is sedated. LABS: Her hemoglobin and hematocrit are 9.8 and 32.4, white count of 12.02, platelet count of 120,000, MCV of 116.1. INR of 1.7. Sodium 147, potassium 3.1, chloride 101, bicarb 39, BUN of 6, creatinine 1, glucose of 120, calcium 7.6, phosphorus 1.0, magnesium 2.1. Bilirubin of 18.98, AST 126, ALT 40, alkaline phosphatase 175, total protein 5, albumin of 2.5. IMPRESSION AND PLAN: 1. Alcoholic liver cirrhosis complicated with jaundice, thrombocytopenia, coagulopathy, hepatic encephalopathy, anemia, hypoalbuminemia, malnutrition. We will continue to avoid hepatotoxic drugs. Will continue her on lactulose through the NG tube. She will continue on nutrition support through the NG tube. We will continue to follow her liver enzymes and jaundice level, platelet count, and INR. 2. Oliguria. Will consult nephrology team today as there has been a change in her urine output. Will start her on albumin 25 g IV once daily for 3 days. 3. Alcohol withdrawal and alcoholism. She is currently intubated and vented. Being managed by the primary care team. Will continue her on a multivitamin once daily. 4. Gastrointestinal bleed which has now resolved. We will continue on Protonix twice daily. 5. Alcoholic hepatitis. We will continue pentoxifylline 400 mg p.o. t.i.d. 6. Will discontinue her octreotide tomorrow morning. We will follow along. I discussed the plan of care with the patient's nurse and the family and all questions answered. cc: MD Adriano Garcia MD Lindsey T. Smith Lynn R. Buckner, MD James E. Boyle, MD Reginald D. Gladish, MD
[2016-12-26] MEDS ORDERED: POTASSIUM CHLORIDE 40 MEQ in NS 250 ML IV ONE (17:35)
[2016-12-26 17:44] LABS: INR 2.02
[2016-12-26 17:45] LABS: BASO% 0.4 % (0.0-0.8); EOS# 0.09 X1000 (0.0-0.7); EOS% 0.7 % (0.0-10.0); HEMATOCRIT 30.4 % (37.0-47.0); HEMOGLOBIN 9.3 g/dL (12.0-16.0); IMM GRAN# 0.07 X1000 (0.0-0.04); IMM GRAN% 0.6 % (0.0-0.5); LYMPH# 1.37 X1000 (1.2-3.4); LYMPH% 11.2 % (20.5-51.1); MANUAL DIFF NEEDED? YES; MCH 34.8 PG (27-31); MCHC 30.6 g/dL (33-37); MCV 113.9 FL (81-99); MONO# 0.89 X1000 (0.11-0.59); MONO% 7.3 % (1.7-9.3); MPV 11.6 FL (7.4-10.4); NEUT% 79.8 % (42.2-75.2); PLT 118 X1000 (130-400); PROTIME 22.2 Seconds (9.2-11.7); RBC 2.67 XMIL (4.2-5.4)
[2016-12-26 18:03] LABS: URINE SOURCE CATH
[2016-12-26] MEDS: PROTONIX IV SCH (18:04)
[2016-12-26] MEDS: SODIUM CHLORIDE 0.9% INJ SCH (18:04)
[2016-12-26 18:09] LABS: BILIRUBIN URINE LARGE (NEGATIVE); BLOOD URINE MODERATE (NEGATIVE); CLARITY SLIGHTLY CLOUDY (CLEAR); COLOR YELLOW; GLUCOSE URINE NEGATIVE (NEGATIVE); LEUKOCYTES URINE NEGATIVE (NEGATIVE); NITRITE URINE NEGATIVE (NEGATIVE); PROTEIN URINE 100 mg/dL (NEGATIVE); SP GRAVITY URINE 1.025
[2016-12-26 18:09] LABS: UR CREAT RANDOM 110.9 mg/dL (11-20)
[2016-12-26 18:17] LABS: URINE EPITHELIAL CELLS <10 /HPF (<10); URINE RBC <10 /HPF (<10); URINE WBC <10 /HPF (<10)
[2016-12-26 18:23] LABS: UR PROT RANDOM 247.8 mg/dL
[2016-12-26 18:26] LABS: EOS 2 % (1-10); LYMPHS 12 % (21-51); MONO 4 % (1-9)
[2016-12-26 18:27] LABS: TARGET CELLS OCCASIONAL
[2016-12-26] MEDS: LEVOPHED 8 MG in D5 1/2 NS 250 ML IV SCH (18:36)
[2016-12-26] MEDS: ATIVAN IV PRN (20:54)
[2016-12-26 22:28] LABS: BASO% 0.4 % (0.0-0.8); EOS# 0.03 X1000 (0.0-0.7); EOS% 0.3 % (0.0-10.0); HEMATOCRIT 28.2 % (37.0-47.0); HEMOGLOBIN 8.7 g/dL (12.0-16.0); IMM GRAN# 0.08 X1000 (0.0-0.04); IMM GRAN% 0.8 % (0.0-0.5); LYMPH# 1.37 X1000 (1.2-3.4); LYMPH% 13.8 % (20.5-51.1); MANUAL DIFF NEEDED? NO; MCH 34.8 PG (27-31); MCHC 30.9 g/dL (33-37); MCV 112.8 FL (81-99); MONO# 0.63 X1000 (0.11-0.59); MONO% 6.4 % (1.7-9.3); MPV 11.2 FL (7.4-10.4); NEUT% 78.3 % (42.2-75.2); PLT 90 X1000 (130-400)
[2016-12-27] MEDS: D5W 1,000 ML IV SCH ×2 (00:08→13:00)
[2016-12-27] MEDS: ZOSYN 3.375 GM/NS 3.375 GM/50 ML IVPB IV SCH (02:56)
[2016-12-27] MEDS: DUONEB (A & A) INH SCH ×6 (03:05→22:32)
[2016-12-27 04:17] LABS: ALLEN TEST YES; BE 1.5 mmoll (-3.0-3.0); BLOOD TYPE ARTERIAL; DRAW SITE R RADIAL; O2(CT) 18.1 mL/dL (15.0-23.0); PCO2(98.6) 46 mmHg (35-45); PO2(98.6) 77 mmHg (60-100); SAMPLE BLOOD; SAO2 97.3 % (95.0-100.0); SRATE 8 BPM; THB 13.7 g/dL (11.5-17.4); TVOL 600 mL; pH(98.6) 7.38 (7.35-7.45)
[2016-12-27 04:18] LABS: MODALITY VENTILATOR
--- NOTE | 2016-12-27 04:50 | CONSULTATION ---
DATE OF CONSULTATION: 12/26/2016 REASON FOR CONSULTATION: Low urine output. HISTORY OF PRESENT ILLNESS: Ms. Longoria is a 46-year-old white female who was admitted to the hospital on last Saturday. She was noted to be unresponsive by her , and was therefore brought to the emergency room. Her initial evaluation found abdominal distention and abdominal pain, with severe jaundice. Ultimately, she was diagnosed with severe acute hepatic steatosis and evidence of liver failure. She has a history of a gastric bypass, and she has chronic low back pain and uses fentanyl. She continued to decline and ultimately had an aspiration event that led to intubation. She has been hypotensive and has required vasopressor support with Elmer-Synephrine. In this context, she has been in positive fluid balance, but over the last 24 hours, her urine output has dropped dramatically. She had 2 L of urine output recorded yesterday, but so far only 35 mL through the day today. She is receiving Sandostatin, Elmer-Synephrine, and she has started IV albumin as well. I am asked to consult to assist with her management. PAST MEDICAL HISTORY: As above. CURRENT MEDICATIONS: Reviewed, as listed. ALLERGIES: None. SOCIAL HISTORY: Heavy alcohol and tobacco use. Her is present. FAMILY HISTORY: Otherwise not obtainable. REVIEW OF SYSTEMS: Otherwise not obtainable. PHYSICAL EXAMINATION: Vital Signs: Blood pressure 96/52 heart rate 94, respirations 13, temperature 100.6 degrees General: She is a chronically ill-appearing middle-aged woman on the ventilator. She is unresponsive, though the Diprivan has been discontinued. Skin: Jaundiced, with multiple ecchymoses. Conjunctivae are pink. Pupils are equal. Gaze is somewhat dysconjugate. Oropharynx is dry. Neck: Neck veins are distended. Trachea is midline. Heart: Regular. Mildly tachycardic. No gallops or murmurs. Lungs: Equal breath sounds. Coarse few crackles. Abdomen: Somewhat distended. Bowel sounds are minimal. Extremities: 2+ edema. No clubbing or cyanosis. IMPRESSION: Oliguria. Her creatinine has risen from 0.7 to 1.0. Very likely, she has hepatorenal syndrome. She is markedly positive from a fluid balance standpoint. She is receiving albumin. I will change her Elmer-Synephrine to Levophed and continue Sandostatin. Check urine electrolytes, and repeat urinalysis. No other medication changes are required. Her Zosyn dose will likely need to be adjusted, but I will not do that today. I would recommend discontinuation of fentanyl, given her neurologic impairment. She does not meet criteria for dialysis today, but likely will meet criteria in the next 2-3 days. cc: Fili Ortiz MD
[2016-12-27 05:30] LABS: BASO% 0.4 % (0.0-0.8); EOS# 0.05 X1000 (0.0-0.7); EOS% 0.5 % (0.0-10.0); HEMATOCRIT 30.1 % (37.0-47.0); HEMOGLOBIN 9.4 g/dL (12.0-16.0); IMM GRAN# 0.11 X1000 (0.0-0.04); LYMPH# 1.44 X1000 (1.2-3.4); LYMPH% 13.3 % (20.5-51.1); MANUAL DIFF NEEDED? YES; MCH 34.8 PG (27-31); MCHC 31.2 g/dL (33-37); MCV 111.5 FL (81-99); MONO# 0.75 X1000 (0.11-0.59); MONO% 6.9 % (1.7-9.3); MPV 12.3 FL (7.4-10.4); NEUT% 77.9 % (42.2-75.2); PLT 97 X1000 (130-400)
[2016-12-27] MEDS: LIBRIUM PO SCH ×4 (05:38→21:55)
[2016-12-27] MEDS: SODIUM CHLORIDE 0.9% INJ SCH ×2 (05:39→18:23)
[2016-12-27] MEDS: ATIVAN IV PRN (05:40)
[2016-12-27] MEDS: SANDOSTATIN 500 MICROGM in D5W 100 ML IV SCH ×2 (05:43→15:55)
--- NOTE | 2016-12-27 06:16 | Diag Imaging Result Doc PS360 ---
EXAM: CHEST-PORTABLE HISTORY: respiratory failure TECHNIQUE: Portable COMPARISON: 12/26/2016 FINDINGS: No change in the endotracheal tube or in the left-sided PICC line. Nasogastric tube is in good position. The lungs are poorly expanded. The heart is not enlarged. Mild pulmonary edema remains. There may be underlying infiltrate in right base. No pleural effusions identified. IMPRESSION: Stable chest. Electronically signed by Rafael Spicer 12/27/2016 6:14 AM
[2016-12-27] MEDS: PROTONIX IV SCH ×2 (06:18→18:23)
[2016-12-27 06:55] LABS: ALBUMIN 2.8 g/dL (3.5-5.0); CALCIUM 7.7 mg/dL (8.8-10.2); MAGNESIUM 1.9 mg/dL (1.5-2.7); TOTAL BILIRUBIN 21.46 mg/dL (0.20-1.00); TOTAL PROTEIN 5.3 g/dL (6.3-8.3)
[2016-12-27 06:57] LABS: POTASSIUM 2.4 mmol/L (3.5-5.1)
[2016-12-27] MEDS ORDERED: POTASSIUM CHLORIDE 40 MEQ/SWI 40 MEQ/100 ML IVPB IV ONE (07:30)
[2016-12-27 08:00] LABS: BANDS 8 % (0-1); LYMPHS 16 % (21-51); MONO 6 % (1-9)
[2016-12-27] MEDS: LEVOPHED 8 MG in D5 1/2 NS 250 ML IV SCH (08:28)
--- NOTE | 2016-12-27 09:27 | PROGRESS NOTE ---
DATE: 12/27/2016 SUBJECTIVE: Ms. Longoria is still intubated, unresponsive, jaundice. Her urine output yesterday seemed to have improve, almost 4 L. OBJECTIVE: General: Today unresponsive. Vital signs: Temp 98.2 degrees, pulse 120, respirations 24, and blood pressure 147/86. O2 saturation was 93%. Lungs: Clear anterolateral. Cardiovascular: Regular rhythm and rate without murmur or S3. Abdomen: Soft. Skin: Warm and dry. LAB: White count 10,850, hematocrit 30, platelet count 97,000. Chemistry: Sodium 144, potassium 2.4, chloride 100, bicarb 26, BUN 8, creatinine 1.8. Blood sugar 164, 165, 151. Total bilirubin 21.46, AST was 86, ALT was 31, alkaline phos 148, albumin 2.8. ASSESSMENT AND PLAN: 1. Hepatic failure, alcoholic hepatic failure. She has hepatorenal syndrome. Markedly positive from a fluid balance standpoint. Receiving albumin. I changed her Elmer-Synephrine to Levophed and continue Sandostatin. Continue to follow electrolytes. Creatinine 1.8. I am going to adjust her Zosyn dose. 2. Alcoholic liver failure, cirrhosis, complicated by jaundice, thrombocytopenia, coagulopathy, hepatic encephalopathy, anemia, hypoalbuminemia, and malnutrition. Continue to avoid hepatic toxic drugs. Continue lactulose through the NG tube. 3. Alcohol withdrawal, alcoholism. Continue present medications. 4. Respiratory failure. On the ventilator with sedation. 5. Plan I think is to turn off the octreotide today per Dr. Reagan. 6. Nutrition. Continue her NG feeding. REVIEW OF ORDERS: We did supplement some potassium. I do not see any change right now. cc: Adriano Wick MD
[2016-12-27] MEDS: TRENTAL PO SCH ×3 (09:43→16:00)
[2016-12-27] MEDS: LACTULOSE PO SCH ×3 (09:43→16:00)
[2016-12-27] MEDS: ALBUMIN 25% IV SCH (09:43)
[2016-12-27] MEDS: FOLIC ACID 1 MG in NS 50.0 ML IV SCH (09:43)
[2016-12-27] MEDS: THERA M PLUS PO SCH (09:43)
[2016-12-27 10:23] LABS: BASO% 0.2 % (0.0-0.8); EOS# 0.04 X1000 (0.0-0.7); EOS% 0.4 % (0.0-10.0); HEMATOCRIT 29.5 % (37.0-47.0); HEMOGLOBIN 9.3 g/dL (12.0-16.0); IMM GRAN# 0.08 X1000 (0.0-0.04); IMM GRAN% 0.8 % (0.0-0.5); LYMPH# 1.07 X1000 (1.2-3.4); LYMPH% 10.6 % (20.5-51.1); MANUAL DIFF NEEDED? YES; MCH 34.8 PG (27-31); MCHC 31.5 g/dL (33-37); MCV 110.5 FL (81-99); MONO# 0.65 X1000 (0.11-0.59); MONO% 6.4 % (1.7-9.3); MPV 11.6 FL (7.4-10.4); NEUT% 81.6 % (42.2-75.2); PLT 75 X1000 (130-400); RBC 2.67 XMIL (4.2-5.4)
[2016-12-27 10:41] LABS: BANDS 4 % (0-1); LYMPHS 14 % (21-51); MONO 4 % (1-9)
[2016-12-27] MEDS: ZOSYN 2.25 GM/NS 2.25 GM/50 ML IVPB IV SCH ×2 (11:17→18:22)
[2016-12-27] MEDS ORDERED: VITAMIN K 10 MG in NS 50 ML IV ONE (12:13)
--- NOTE | 2016-12-27 16:17 | PROGRESS NOTE ---
DATE: 12/27/2016 SUBJECTIVE: She remains unresponsive. She does move spontaneously. OBJECTIVE: Vital Signs: Blood pressure 111/61, heart rate 112, respirations 10, afebrile. Intake 4.9 L; output 225 mL. General: On physical exam, mental status as above. Skin: Jaundice and multiple ecchymoses. Eyes: Conjunctivae are pink. Pupils are equal. Neck: Neck veins are distended. Oropharynx is dry. Neck: Trachea is midline. Heart: Regular. Mildly tachycardic. No gallops. Lungs: Have equal breath sounds. Shallow. No crackles. Abdomen: Soft, distended, nontender. Bowel sounds are diminished. Extremities: Have 2+ edema. No clubbing or cyanosis. LABORATORY DATA: Sodium 144, potassium 2.4, chloride 100, bicarbonate 26, BUN 8, creatinine 1.8. Urine sodium 28. FENa less than 1%. (0.3%). IMPRESSION: 1. Renal failure. Likely hepatorenal syndrome. No improvement in urine output with addition of Levophed, Sandostatin, albumin. Markedly low FENa, although her urine sodium was 28. Continue current care. She does not meet criteria for dialysis today. Likely will require dialysis within the next 48 hours. 2. Altered mental status. Multifactorial. Will discontinue her fentanyl patch today. 3. Hypokalemia. We will dose with potassium chloride again today. cc: Fili Ortiz MD
[2016-12-27] MEDS ORDERED: POTASSIUM CHLORIDE 40 MEQ in NS 250 ML IV ONE (17:00)
[2016-12-27 17:20] LABS: BASO% 0.3 % (0.0-0.8); EOS# 0.05 X1000 (0.0-0.7); EOS% 0.4 % (0.0-10.0); HEMATOCRIT 28.8 % (37.0-47.0); HEMOGLOBIN 9.1 g/dL (12.0-16.0); IMM GRAN# 0.05 X1000 (0.0-0.04); IMM GRAN% 0.4 % (0.0-0.5); LYMPH# 1.38 X1000 (1.2-3.4); LYMPH% 11.8 % (20.5-51.1); MANUAL DIFF NEEDED? YES; MCH 34.9 PG (27-31); MCHC 31.6 g/dL (33-37); MCV 110.3 FL (81-99); MONO# 0.76 X1000 (0.11-0.59); MONO% 6.5 % (1.7-9.3); MPV 11.8 FL (7.4-10.4); NEUT% 80.6 % (42.2-75.2); PLT 70 X1000 (130-400); RBC 2.61 XMIL (4.2-5.4)
[2016-12-27 17:23] LABS: EOS 1 % (1-10); LYMPHS 12 % (21-51); MONO 5 % (1-9)
[2016-12-27 22:13] LABS: BASO% 0.3 % (0.0-0.8); EOS# 0.03 X1000 (0.0-0.7); EOS% 0.3 % (0.0-10.0); HEMATOCRIT 32.1 % (37.0-47.0); HEMOGLOBIN 10.2 g/dL (12.0-16.0); IMM GRAN# 0.06 X1000 (0.0-0.04); IMM GRAN% 0.6 % (0.0-0.5); LYMPH# 1.06 X1000 (1.2-3.4); LYMPH% 10.6 % (20.5-51.1); MANUAL DIFF NEEDED? YES; MCH 34.7 PG (27-31); MCHC 31.8 g/dL (33-37); MCV 109.2 FL (81-99); MONO# 0.71 X1000 (0.11-0.59); MONO% 7.1 % (1.7-9.3); MPV 12.2 FL (7.4-10.4); NEUT% 81.1 % (42.2-75.2); PLT 65 X1000 (130-400); RBC 2.94 XMIL (4.2-5.4)
[2016-12-27 23:05] LABS: BANDS 8 % (0-1); LYMPHS 10 % (21-51); MONO 4 % (1-9)
[2016-12-27 23:08] LABS: LARGE PLATELETS OCCASIONAL
[2016-12-28] MEDS: LEVOPHED 8 MG in D5 1/2 NS 250 ML IV SCH (01:24)
[2016-12-28] MEDS: DUONEB (A & A) INH SCH ×6 (03:08→23:00)
[2016-12-28] MEDS: ZOSYN 2.25 GM/NS 2.25 GM/50 ML IVPB IV SCH ×3 (03:32→18:31)
[2016-12-28] MEDS: D5W 1,000 ML IV SCH ×2 (03:32→17:21)
[2016-12-28] MEDS: LIBRIUM PO SCH ×2 (03:32→09:58)
[2016-12-28 04:29] LABS: ALLEN TEST YES; BE 0.1 mmoll (-3.0-3.0); BLOOD TYPE ARTERIAL; DRAW SITE R RADIAL; METHB 0.9 % (0.0-1.5); O2(CT) 17.8 mL/dL (15.0-23.0); PCO2(98.6) 35 mmHg (35-45); PO2(98.6) 76 mmHg (60-100); SAMPLE BLOOD; SAO2 97.9 % (95.0-100.0); SRATE 8 BPM; THB 13.4 g/dL (11.5-17.4); TVOL 600 mL; pH(98.6) 7.44 (7.35-7.45)
[2016-12-28 04:30] LABS: MODALITY VENTILATOR
--- NOTE | 2016-12-28 06:13 | Diag Imaging Result Doc PS360 ---
EXAM: CHEST-PORTABLE HISTORY: respiratory failure TECHNIQUE: Portable AP COMPARISON: 12/27/2016 FINDINGS: No change in the endotracheal tube, nasogastric tube, or in the left-sided PICC line. The heart is not enlarged. There is atelectasis or infiltrate in the right base. Partial clearing of the left lung infiltrates. IMPRESSION: Interval improvement in the left, but worsening in the right base. Electronically signed by Rafael Spicer 12/28/2016 6:10 AM
[2016-12-28 06:17] LABS: BASO% 0.2 % (0.0-0.8); EOS# 0.05 X1000 (0.0-0.7); EOS% 0.6 % (0.0-10.0); HEMATOCRIT 34.4 % (37.0-47.0); HEMOGLOBIN 11.2 g/dL (12.0-16.0); IMM GRAN# 0.04 X1000 (0.0-0.04); IMM GRAN% 0.5 % (0.0-0.5); MANUAL DIFF NEEDED? NO; MCH 35.3 PG (27-31); MCHC 32.6 g/dL (33-37); MCV 108.5 FL (81-99); MONO# 0.52 X1000 (0.11-0.59); MONO% 6.4 % (1.7-9.3); MPV 11.6 FL (7.4-10.4); NEUT% 81.3 % (42.2-75.2); PLT 49 X1000 (130-400); RBC 3.17 XMIL (4.2-5.4)
--- NOTE | 2016-12-28 06:27 | PROGRESS NOTE ---
DATE: 12/27/2016 SUBJECTIVE: Patient currently intubated, vented, and sedated. The family is present at bedside. She is having high NG tube residuals. Yesterday, it was more than 300. Today, this morning, it was 120. These were evacuated by the nursing staff, and we have restarted the tube feeds at 25 ml per hour. The patient has been having liquid green stools. No active GI bleeding reported. Her jaundice level has fluctuated and it has gone up to 21 today. No fever reported today. Yesterday, she had T-max of 100.6 degrees. OBJECTIVE: Vital Signs: Temperature is 98.3, pulse 103, respiratory rate 14, blood pressure 111/61, saturating 98% on mechanical ventilator at 50% FiO2. General Appearance : Moderately nourished, lying in bed, intubated, vented, and sedated. HEENT: Positive icterus. Mild pallor. Positive ET tube. Positive NG tube. The neck is supple. Abdomen is distended. Visible veins in the subcutaneous tissue over the abdominal wall. It may be questionable ascites. Positive bowel sounds. Extremities: No cyanosis, clubbing. Neuro-boyd, she is currently intubated, vented, and sedated. LABORATORY DATA: Her hemoglobin and hematocrit is 9.3, 29.5. White count of 10.1, platelet count of 75,000. MCV of 110.5. INR of 2.02. Sodium 144, potassium 2.4, chloride 100 , bicarb 26, anion gap of 18. BUN of 8, creatinine 1.8, glucose of 165. Calcium is 7.7, phosphorus 1.4, magnesium 1.9. Total bilirubin is 27.46. AST 86, ALT 31. Alkaline phosphatase 148. Total protein 5.3. Albumin of 2.8. IMPRESSION AND PLAN: 1. Alcoholic liver cirrhosis complicated with jaundice, thrombocytopenia, coagulopathy, hepatic encephalopathy, anemia, hypoalbuminemia, and malnutrition with currently worsening status. We will continue to watch her labs. She is going in the wrong direction. She had oliguria yesterday and being evaluated by the Nephrology team. Her jaundice and pallor getting worse. Her platelet counts are dropping. Her INR is getting worse. She is in liver failure along with multiorgan failure. 2. Mechanical ventilation for respiratory failure. Being monitored by the primary team. 3. Alcoholic hepatitis. Continue pentoxifylline 400 mg p.o. t.i.d. 4. Alcohol withdrawal alcoholism. She is intubated and vented with airway protection, and she is also getting multivitamin once daily. 5. We will discontinue octreotide drip today. 6. Coagulopathy. We will give her another dose of vitamin K today. The patient is in liver failure. We will continue with the supportive care. I discussed the above plan of care with the patient's family. cc: MD Adriano Garcia MD Lindsay Smith Lynn R. Buckner, MD Reginald D. Gladish, MD MTDD
[2016-12-28 06:29] LABS: CALCIUM 8.1 mg/dL (8.8-10.2); POTASSIUM 2.8 mmol/L (3.5-5.1)
[2016-12-28] MEDS ORDERED: POTASSIUM CHLORIDE 40 MEQ in NS 250 ML IV ONE (07:30)
--- NOTE | 2016-12-28 08:03 | PROGRESS NOTE ---
DATE: 12/28/2016 SUBJECTIVE: She remains sedated on the ventilator. OBJECTIVE: Vital Signs: Blood pressure 115/68, heart rate 100, respirations 13, afebrile. Intake 3.5 L. Output 1.1 L, but at 370 mL of urine output. General: Again, she remains obtunded despite being off of Diprivan. Skin: Jaundiced with ecchymoses. Conjunctivae are pink. Pupils are equal. Oropharynx is clear. Neck: Neck veins are distended. Lungs: Have equal breath sounds with rhonchi. Heart: Regular and tachycardic. Abdomen: Distended. Bowel sounds are present. Extremities: Have 3+ edema. No clubbing or cyanosis. LABORATORY DATA: Hemoglobin is 11.2. Sodium 140, potassium 2.8, chloride 97, bicarbonate 24, BUN 12, creatinine 2.1. IMPRESSION: 1. Acute kidney injury. No improvement discernible. She has exogenous volume overload. Continue current treatment with Levophed, Sandostatin, albumin. Though she does not have any absolute indications for dialysis, her volume status is likely to become an issue soon. I have consulted Dr. Hathaway place a Vas-Cath. We will initiate SLEDD once access is available. 2. Hypokalemia. Replace. 3. Acid-base. In target. 4. Anemia. In target. 5. Hypotension. Blood pressure is acceptable but I would like to continue her Levophed. cc: Fili Ortiz MD
[2016-12-28] MEDS: TRENTAL PO SCH ×3 (09:58→17:21)
[2016-12-28] MEDS: ALBUMIN 25% IV SCH (09:58)
[2016-12-28] MEDS: SODIUM CHLORIDE 0.9% INJ SCH (09:58)
[2016-12-28] MEDS: LACTULOSE PO SCH ×3 (09:58→17:21)
[2016-12-28] MEDS: THERA M PLUS PO SCH (09:58)
[2016-12-28] MEDS: PROTONIX IV SCH ×2 (09:58→18:31)
[2016-12-28 10:22] LABS: BASO% 0.4 % (0.0-0.8); EOS# 0.05 X1000 (0.0-0.7); EOS% 0.6 % (0.0-10.0); HEMATOCRIT 29.5 % (37.0-47.0); HEMOGLOBIN 9.5 g/dL (12.0-16.0); IMM GRAN# 0.05 X1000 (0.0-0.04); IMM GRAN% 0.6 % (0.0-0.5); LYMPH% 10.9 % (20.5-51.1); MANUAL DIFF NEEDED? YES; MCH 34.9 PG (27-31); MCHC 32.2 g/dL (33-37); MCV 108.5 FL (81-99); MONO% 4.9 % (1.7-9.3); MPV 11.1 FL (7.4-10.4); NEUT% 82.6 % (42.2-75.2); PLT 46 X1000 (130-400); RBC 2.72 XMIL (4.2-5.4)
[2016-12-28] MEDS: FOLIC ACID 1 MG in NS 50.0 ML IV SCH (11:04)
[2016-12-28 11:54] LABS: BANDS 16 % (0-1); EOS 2 % (1-10); LYMPHS 12 % (21-51); MONO 2 % (1-9)
[2016-12-28 16:02] LABS: BASO% 0.3 % (0.0-0.8); EOS# 0.04 X1000 (0.0-0.7); EOS% 0.5 % (0.0-10.0); HEMATOCRIT 27.8 % (37.0-47.0); HEMOGLOBIN 8.8 g/dL (12.0-16.0); IMM GRAN# 0.06 X1000 (0.0-0.04); IMM GRAN% 0.8 % (0.0-0.5); LYMPH# 0.84 X1000 (1.2-3.4); LYMPH% 10.6 % (20.5-51.1); MANUAL DIFF NEEDED? YES; MCH 34.6 PG (27-31); MCHC 31.7 g/dL (33-37); MCV 109.4 FL (81-99); MONO# 0.31 X1000 (0.11-0.59); MONO% 3.9 % (1.7-9.3); MPV 10.7 FL (7.4-10.4); NEUT% 83.9 % (42.2-75.2); RBC 2.54 XMIL (4.2-5.4)
[2016-12-28 16:03] LABS: PLT 39 X1000 (130-400)
[2016-12-28 16:14] LABS: LYMPHS 12 % (21-51); MONO 9 % (1-9)
--- NOTE | 2016-12-28 16:17 | PROGRESS NOTE ---
DATE: 12/28/2016 SUBJECTIVE: Ms. Longoria is intubated, still appears comfortable. She is moving all extremities. She does move her head. OBJECTIVE: Vital Signs: Temperature 97.3 degrees, pulse 106, respirations 26, blood pressure 121/67. Neck: CVP less than 6 cm. Lungs: Clear in all lung childs. Cardiovascular: Regular rhythm and rate, without murmur or S3. Abdomen: Soft. Skin: Warm and dry. URINE OUTPUT: 2600 mL. LABORATORY: White count 8230, hematocrit 29, and platelet count is 46,000. Sodium 140, potassium 2.8, chloride 97, bicarbonate 24, BUN 12, and creatinine 2.1. Blood sugars 159 and 154. Phosphorus was 1.7. Albumin 3.0. IMAGING: Chest x-ray: Interval improvement on the left, but worsening on the right side lung. ASSESSMENT AND PLAN: 1. Acute kidney injury. No improvement discernable. She has exogenous volume overload. Continue treatment with Levophed, Sandostatin, albumin. Does not have any absolute indication for dialysis at this time. Dr. Hathaway to put a Vas-Cath in. 2. Hypokalemia, replaced. 3. Hypophosphatemia, replaced. 4. Acid-base on target. 5. Anemia. Watch. Her hemoglobin and hematocrit have gone down. 6. Hypotension. Continue Levophed, trying to get the mean blood pressure up. REVIEW OF MEDICATIONS: She is getting D5 water at 75 mL an hour; folic acid 1 mg q.24 hours; Dilaudid 1 mg IV q.4 hours; lactulose 30 mL p.o. t.i.d.; norepinephrine is running at 8 mg. We will maintain an MAP of 60 mmHg. Getting Ativan p.r.n. for alcohol withdrawal. She is on pentoxifylline ER 400 mg p.o. t.i.d. cc: Adriano Wick MD
--- NOTE | 2016-12-28 16:32 | OPERATIVE NOTE ---
PROCEDURE DATE: 12/28/2016 PREOPERATIVE DIAGNOSES: Hepatorenal syndrome. POSTOPERATIVE DIAGNOSIS: Hepatorenal syndrome. PROCEDURE PERFORMED: Ultrasound-guided right femoral vein Vas-Cath placement with a Trialysis triple-lumen dialysis catheter. INDICATIONS: This is a 46-year-old female with worsening liver dysfunction and renal dysfunction on who Dr. Ortiz plans to start dialysis. She is jaundiced and is in fulminant failure, and is quite anasarcous. ESTIMATED BLOOD LOSS: Less than 10 mL. SPECIMENS: None. ANESTHESIA: She is on IV protocol sedation for her ventilator state. FINDINGS: There is quite a lot of soft tissue edema and jaundice of her skin. Ultrasound examination showed normal vascular anatomy with a compressible femoral vein, with no evidence of intraluminal thrombus. OPERATIVE NOTE: Risks, benefits, and alternatives were discussed with the patient's family member and they consented to the procedure. She was positioned in the bed. Right groin was prepped with chlorhexidine solution and draped in the usual fashion. After a time-out was performed, an ultrasound exam of the right groin was performed and a pink introducer needle was used to access the femoral vein. Dark, nonpulsatile venous blood was noted on return on the first pass. The wire threaded easily and was confirmed to course directly into the vein. We then made a skin steve after removing the needle and serially dilated the tract, holding pressure between each. A pre- flushed Trialysis triple-lumen catheter was then placed easily using Seldinger technique and the wire was removed. All ports withdrew blood and flushed easily. We secured it with a nylon suture. I cleaned the skin and applied a sterile dressing. No identified complications. She tolerated the procedure well. The line is okay to use. cc: Doron Holder MD
[2016-12-28] MEDS: DILAUDID IV PRN (20:43)
[2016-12-28 22:52] LABS: BASO% 0.3 % (0.0-0.8); EOS# 0.03 X1000 (0.0-0.7); EOS% 0.3 % (0.0-10.0); HEMOGLOBIN 8.9 g/dL (12.0-16.0); IMM GRAN# 0.11 X1000 (0.0-0.04); IMM GRAN% 1.1 % (0.0-0.5); LYMPH# 0.81 X1000 (1.2-3.4); LYMPH% 7.8 % (20.5-51.1); MANUAL DIFF NEEDED? YES; MCH 34.5 PG (27-31); MCHC 31.8 g/dL (33-37); MCV 108.5 FL (81-99); MONO% 3.9 % (1.7-9.3); MPV 12.3 FL (7.4-10.4); NEUT% 86.6 % (42.2-75.2); PLT 42 X1000 (130-400); RBC 2.58 XMIL (4.2-5.4)
[2016-12-28 23:14] LABS: BANDS 46 % (0-1); EOS 2 % (1-10); LYMPHS 6 % (21-51); MONO 2 % (1-9)
[2016-12-29] MEDS: DUONEB (A & A) INH SCH ×6 (03:00→23:05)
[2016-12-29 04:19] LABS: ALLEN TEST YES; BLOOD TYPE ARTERIAL; DRAW SITE R RADIAL; METHB 0.2 % (0.0-1.5); PCO2(98.6) 33 mmHg (35-45); PO2(98.6) 61 mmHg (60-100); SAMPLE BLOOD; SAO2 96.9 % (95.0-100.0); SRATE 8 BPM; THB 9.1 g/dL (11.5-17.4); TVOL 500 mL; pH(98.6) 7.43 (7.35-7.45)
[2016-12-29 04:20] LABS: MODALITY VENTILATOR
[2016-12-29] MEDS: ZOSYN 2.25 GM/NS 2.25 GM/50 ML IVPB IV SCH ×3 (04:21→18:11)
[2016-12-29] MEDS: PROTONIX IV SCH ×2 (05:59→18:11)
[2016-12-29] MEDS: D5W 1,000 ML IV SCH ×2 (05:59→20:10)
[2016-12-29 06:27] LABS: HEMATOCRIT 30.3 % (37.0-47.0); HEMOGLOBIN 9.8 g/dL (12.0-16.0); MCH 34.9 PG (27-31); MCHC 32.3 g/dL (33-37); MCV 107.8 FL (81-99); RBC 2.81 XMIL (4.2-5.4)
[2016-12-29 06:37] LABS: BASO% 0.2 % (0.0-0.8); EOS# 0.04 X1000 (0.0-0.7); EOS% 0.3 % (0.0-10.0); HEMATOCRIT 29.9 % (37.0-47.0); HEMOGLOBIN 9.7 g/dL (12.0-16.0); IMM GRAN# 0.12 X1000 (0.0-0.04); IMM GRAN% 0.9 % (0.0-0.5); LYMPH# 1.06 X1000 (1.2-3.4); MANUAL DIFF NEEDED? YES; MCH 35.1 PG (27-31); MCHC 32.4 g/dL (33-37); MCV 108.3 FL (81-99); MONO# 0.44 X1000 (0.11-0.59); MONO% 3.3 % (1.7-9.3); NEUT% 87.3 % (42.2-75.2); PLT 45 X1000 (130-400); RBC 2.76 XMIL (4.2-5.4)
[2016-12-29 06:38] LABS: PLT 45 X1000 (130-400)
[2016-12-29 06:59] LABS: ALBUMIN 2.9 g/dL (3.5-5.0); CALCIUM 8.3 mg/dL (8.8-10.2); MAGNESIUM 1.9 mg/dL (1.5-2.7); POTASSIUM 2.6 mmol/L (3.5-5.1); TOTAL BILIRUBIN 23.07 mg/dL (0.20-1.00); TOTAL PROTEIN 5.2 g/dL (6.3-8.3)
[2016-12-29 07:58] LABS: BANDS 24 % (0-1); LYMPHS 14 % (21-51); MONO 4 % (1-9)
[2016-12-29] MEDS ORDERED: NS 2,000 ML ONE (08:02)
[2016-12-29] MEDS ORDERED: HEPARIN ONE (08:02)
--- NOTE | 2016-12-29 08:26 | Diag Imaging Result Doc PS360 ---
CHEST-PORTABLE - 12/29/2016 INDICATION: respiratory failure TECHNIQUE: COMPARISON: 12/28/2016 FINDINGS: Support lines and tubes are stable. There is slight improvement in right lower lobe infiltrate/atelectasis with better visualization of the right hemidiaphragm. Stable left lower lobe infiltrate or atelectasis as well. Heart size and pulmonary vascularity remain normal. IMPRESSION: Slight improvement from prior. No complications. Electronically signed by Young Sharp 12/29/2016 8:24 AM
[2016-12-29] MEDS: LACTULOSE PO SCH ×3 (09:08→16:50)
[2016-12-29] MEDS: ALBUMIN 25% IV SCH (09:08)
[2016-12-29] MEDS: TRENTAL PO SCH ×3 (09:08→16:50)
[2016-12-29] MEDS: THERA M PLUS PO SCH (09:08)
--- NOTE | 2016-12-29 09:18 | PROGRESS NOTE ---
DATE: 12/29/2016 SUBJECTIVE: Ms. Longoria is moving her head. She does open her eyes. She moves all extremities. OBJECTIVE: She remains afebrile. Temperature 98.5 degrees, pulse 97, respirations 26, blood pressure 121/75. CVP appears less than 6 cm. Lungs are clear anterolateral. She is intubated. Cardiovascular: Regular rhythm and rate without murmur or S3. Urine output appears to be 3800 mL. LABORATORY DATA: White count 14,090. Hematocrit 30, platelet count is 45,000. Chemistries: Sodium 135, potassium 2.6, chloride 93, bicarb 21. BUN 17, creatinine 2.5. Blood sugar of 116, 84, 91, 102, 112. Total bilirubin was 23. ASSESSMENT AND PLAN: 1. Hepatic liver failure. Transaminases seemed to be improving. Bilirubin is about the same; may be up a little bit. Hepatorenal failure. She does have hypokalemia. I think the plan is for dialysis today, and we will address the potassium with dialysis. 2. Hepatorenal failure. Dialysis today to help. She has been on norepinephrine. She is also on octreotide, and I believe she is pentoxifylline or Trental 400 mg p.o. t.i.d. Her blood pressure has improved. She is on norepinephrine drip. I believe she is off the octreotide. 3. Nutrition. Continue NG feeding and advance as tolerated. Dr. Holder has placed an ultrasound- guided right femoral vein Vas-Cath dialysis triple-lumen dialysis catheter. Plan is dialysis today. cc: Adriano Wick MD
[2016-12-29] MEDS: FOLIC ACID 1 MG in NS 50.0 ML IV SCH ×2 (10:54→16:50)
--- NOTE | 2016-12-29 13:31 | PROGRESS NOTE ---
DATE: 12/29/2016 SUBJECTIVE: She is sedated on the ventilator. OBJECTIVE: Vital Signs: Blood pressure 112/66, heart rate 106, respirations 34, afebrile. Intake 3.2 L. Output 800 mL. General: No acute distress. Skin: Warm and dry. Conjunctivae are pink. Neck: Neck veins are distended. Heart: Regular. A murmur is present Lungs: Have equal breath sounds with rhonchi. Abdomen: Soft, distended. Bowel sounds diminished. Extremities: Have 3+ edema. No clubbing or cyanosis. LABORATORY DATA: Sodium 135, potassium 2.6, chloride 93, bicarbonate 21, BUN 17, creatinine 2.5. IMPRESSION: 1. Acute kidney injury. Began dialysis today with SLEDD using a 4 potassium bath and a 27 bicarbonate. 2-4 L ultrafiltration as her blood pressure allows. 2. Electrolytes. Hypokalemia will be addressed with dialysis. 3. Acid-base acceptable. cc: Fili Ortiz MD
[2016-12-29 14:44] LABS: BASO% 0.2 % (0.0-0.8); EOS% 0.6 % (0.0-10.0); HEMATOCRIT 28.9 % (37.0-47.0); HEMOGLOBIN 9.4 g/dL (12.0-16.0); IMM GRAN# 0.27 X1000 (0.0-0.04); IMM GRAN% 1.6 % (0.0-0.5); LYMPH# 1.03 X1000 (1.2-3.4); MANUAL DIFF NEEDED? YES; MCH 34.8 PG (27-31); MCHC 32.5 g/dL (33-37); MONO# 0.43 X1000 (0.11-0.59); MONO% 2.5 % (1.7-9.3); NEUT% 89.1 % (42.2-75.2); PLT 46 X1000 (130-400)
[2016-12-29 14:54] LABS: LYMPHS 7 % (21-51); MONO 7 % (1-9)
[2016-12-29 17:31] LABS: BASO% 0.1 % (0.0-0.8); EOS% 0.6 % (0.0-10.0); HEMATOCRIT 28.7 % (37.0-47.0); HEMOGLOBIN 9.1 g/dL (12.0-16.0); LYMPH% 5.3 % (20.5-51.1); MANUAL DIFF NEEDED? NO; MCH 35.1 PG (27-31); MCHC 31.7 g/dL (33-37); MCV 110.8 FL (81-99); MONO# 0.48 X1000 (0.11-0.59); MONO% 2.8 % (1.7-9.3); NEUT% 91.2 % (42.2-75.2); PLT 49 X1000 (130-400); RBC 2.59 XMIL (4.2-5.4)
--- NOTE | 2016-12-29 17:56 | PROGRESS NOTE ---
DATE: 12/29/2016 GASTROENTEROLOGY FOLLOWUP: SUBJECTIVE: The patient is currently lying in bed, intubated, vented and sedated. Her family, her present at the bedside. She was seen by nephrology team for oliguria and was started on SLED. She was recently diagnosed with hepatorenal syndrome and Dr. Ortiz had recommended her to stay on Sandostatin, IV Levophed, and IV albumin, and they have initiated SLED to help with exogenous volume overload. No fevers noted in the last 24 hours and no nausea or vomiting. She has had trouble with the NG tube feeds and has had high residuals in the past. We will see how she does since she has started SLED. OBJECTIVE: Vitals: Temperature 98.2 degrees, pulse rate of 112, respiratory rate 24, blood pressure 109/70, saturating 97% on mechanical respirator 50% FiO2. GENERAL APPEARANCE: Moderately nourished, lying in bed, and intubated, vented and sedated.HEENT: Positive ET tube. Positive NG tube. Icteric sclerae. Positive pallor. Neck: Supple. Chest: Decreased. Cardiac: Tachycardic. Abdomen: Distended. Body wall edema noted. Bowel sounds are present. Extremities: No cyanosis and clubbing, and generalized anasarca noted. Neurologic: She is sedated, intubated on ventilator. LABS: Her hemoglobin and hematocrit is 9.8 and 13.3, white count of 14.09, platelet count of 45,000. Her PTT of 61.7, her lactate of 3.5 on ABG. Sodium 130, potassium 2.6 , chloride 93, bicarb 21, anion gap 21, BUN of 17, creatinine 2.5, glucose of 96, calcium is 8.3, phosphorus 2.5, magnesium 1.9. Total bilirubin is 23.07. AST 59, ALT 22, alkaline phosphatase 122, total protein 5.2, albumin of 2.9. IMPRESSION AND PLAN: 1. Alcoholic liver disease complicated with alcoholic hepatitis, cirrhosis and liver failure. We will continue with the supportive treatment. We will keep an eye on her labs. Her bilirubin is slowly tracking up, we will keep an eye on that. 2. Thrombocytopenia which is complication of liver failure. We will keep an eye on that. She is at high risk for bleeding. 3. Her PTT is slightly high which could be result of liver failure as well. We will keep an eye on that. 4. Hepatorenal syndrome. Dr. Ortiz is following. She will continue on norepinephrine, octreotide, and on SLED and IV albumin. 5. Nutrition. She will continue NG tube feeds and we are keeping a close eye on her residuals. 6. Anemia. We will continue to watch and type and cross, transfuse to keep the hematocrit more than 27%. 7. Respiratory failure, currently intubated and vented and sedated per the primary care team. 8. We will continue to follow, and I discussed plan of care with the patient's family, and all questions were answered. cc: MD Fili Villegas MD Manish Arora, MD Dr. Talahari MTDD
[2016-12-29] MEDS: SODIUM CHLORIDE 0.9% INJ SCH (18:11)
[2016-12-29] MEDS: ELDERTONIC NG SCH (18:18)
[2016-12-29] MEDS: DILAUDID IV PRN (20:18)
[2016-12-30] MEDS: DUONEB (A & A) INH SCH ×6 (03:00→23:00)
[2016-12-30 04:45] LABS: ALLEN TEST YES; BE -1.4 mmoll (-3.0-3.0); BLOOD TYPE ARTERIAL; DRAW SITE R RADIAL; METHB 0.4 % (0.0-1.5); O2(CT) 12.1 mL/dL (15.0-23.0); PCO2(98.6) 31 mmHg (35-45); PO2(98.6) 70 mmHg (60-100); SAMPLE BLOOD; SAO2 99.5 % (95.0-100.0); SRATE 8 BPM; THB 8.9 g/dL (11.5-17.4); TVOL 500 mL; pH(98.6) 7.46 (7.35-7.45)
[2016-12-30 04:46] LABS: MODALITY VENTILATOR
[2016-12-30] MEDS: ZOSYN 2.25 GM/NS 2.25 GM/50 ML IVPB IV SCH ×3 (04:47→20:19)
[2016-12-30 05:29] LABS: HEMOGLOBIN 8.7 g/dL (12.0-16.0); MCH 35.4 PG (27-31); MCHC 31.1 g/dL (33-37); MCV 113.8 FL (81-99); PLT 46 X1000 (130-400); RBC 2.46 XMIL (4.2-5.4)
[2016-12-30] MEDS: SODIUM CHLORIDE 0.9% INJ SCH (06:03)
[2016-12-30] MEDS: PROTONIX IV SCH ×2 (06:03→16:48)
[2016-12-30 06:24] LABS: ALBUMIN 2.8 g/dL (3.5-5.0); CALCIUM 8.3 mg/dL (8.8-10.2); POTASSIUM 3.1 mmol/L (3.5-5.1); TOTAL BILIRUBIN 22.16 mg/dL (0.20-1.00)
--- NOTE | 2016-12-30 08:53 | Diag Imaging Result Doc PS360 ---
CHEST-PORTABLE - 12/30/2016 INDICATION: respiratory failure TECHNIQUE: COMPARISON: 12/29/2016 FINDINGS: Support lines and tubes are stable. Stable patchy bibasilar infiltrates worst in the right lung base. Heart size and pulmonary vascularity are normal. No pneumothorax or significant effusion. IMPRESSION: No change from prior. Electronically signed by Young Sharp 12/30/2016 8:51 AM
[2016-12-30] MEDS: LACTULOSE PO SCH ×3 (09:13→16:47)
[2016-12-30] MEDS: TRENTAL PO SCH ×3 (09:13→16:48)
[2016-12-30] MEDS: D5W 1,000 ML IV SCH ×2 (09:14→21:47)
[2016-12-30] MEDS: ELDERTONIC NG SCH (09:14)
[2016-12-30] MEDS: FOLIC ACID 1 MG in NS 50.0 ML IV SCH (09:40)
--- NOTE | 2016-12-30 11:18 | PROGRESS NOTE ---
DATE: 12/30/2016 SUBJECTIVE: She is really about the same. She does move her head and extremities, opens her eyes at times. No meaningful response but she is intubated. Quite yellow color, icteric. PHYSICAL EXAMINATION: Vital Signs: Temperature 98 degrees, pulse 100, respirations 19, blood pressure 135/84. HEENT: Pupils were equal. Lungs: Clear in all lung childs. Cardiovascular Examination: Regular rhythm and rate without murmur or S3. Abdomen: Soft. Skin: Warm and dry. Is and Os: Urine output 1300 mL. LAB: White count 18,780, hematocrit 28, platelet count 46,000. Sodium 136, potassium 3.1, chloride 99, bicarb 22, BUN 8. Liver functions: AST is 68, ALT is 21, alkaline phosphatase 115, total bilirubin still 22. Blood sugars 81, 122, 99, 104. Chest x-ray: No change from prior. No sign of infiltrate. ASSESSMENT AND PLAN: 1. Alcoholic liver disease, liver failure, alcoholic hepatitis, cirrhosis. Continue supportive measures. Has a poor prognosis. Her bilirubin is still elevated. She has hepatorenal syndrome so continue to support her. Dialyze as needed. 2. Thrombocytopenia, stable. 3. Functional hepatic intrinsic dysfunction with elevated PTT and a drop in bilirubin. 4. Nutrition. Continue NG feeding. Severe protein calorie malnutrition. 5. Anemia. We will watch her blood count and transfuse as necessary, possibly transfuse when she gets dialysis. 6. Respiratory failure, on the ventilator. 7. Review of labs. Mild hypokalemia. Creatinine was 1.5 L. It was 2.5 yesterday. 8. Review of orders. Getting Zosyn 2.25 mg IV q.8. She is on lactulose 30 mL t.i.d. She is on Protonix 40 mg IV q.12 hours, pentoxifylline ER 400 mg t.i.d., folic acid 1 mg q.24 hours, and Dilaudid 1 mg IV q.4 hours p.r.n. She is on norepinephrine and I think that is 8 mg IV. Started with 2 mcg per minute and they titrated it up to try get MAP of 60 mmHg or greater. cc: Adriano Wick MD
[2016-12-30] MEDS: REGLAN IV SCH (16:48)
--- NOTE | 2016-12-30 17:56 | PROGRESS NOTE ---
DATE: 12/30/2016 SUBJECTIVE: Patient looks worse. Lying in bed, intubated, ventilated, and sedated. The patient's family is at the bedside. She has gotten into hepatorenal syndrome and a Trialysis lumen was introduced by Dr. Jasson Holder. OBJECTIVE: Vital signs: Temp 98 degrees, pulse 112, respirations 24, blood pressure 109/70, saturation 97 on mechanical ventilation, 50% FiO2. General: Lying in bed, intubated, ventilated, showing generalized anasarca. HEENT: There is scleral icterus present. Conjunctival pallor present. Lungs: Breath sounds are decreased. Abdomen: Distended. There is edema of the abdominal wall. Bowel sounds are present. Extremities: Edema and generalized anasarca. Neurological: She is sedated. LABORATORY DATA: Hemoglobin and hematocrit 9.8 and 30, white count 14,000, platelet 45,000. PTT 61. Potassium 2.6, creatinine 2.5, magnesium 1.9, bilirubin 23. IMPRESSION: 1. Alcoholic liver disease complicated by acute alcoholic hepatitis. 2. Hepatorenal syndrome. 3. 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 4. Malnutrition. 5. Anemia. 6. Respiratory failure. PLAN: Patient is getting all the support she needs but generally speaking, she has worsening liver failure with hepatorenal syndrome. Prognosis looks poor. Will follow with you. cc: Marisel Ivey MD
[2016-12-31] MEDS: TYLENOL PR ONE ×2 (00:52→02:06)
[2016-12-31 01:15] LABS: ALLEN TEST YES; BE -3.6 mmoll (-3.0-3.0); BLOOD TYPE ARTERIAL; DRAW SITE R RADIAL; O2(CT) 13.6 mL/dL (15.0-23.0); PCO2(98.6) 30 mmHg (35-45); PO2(98.6) 71 mmHg (60-100); SAMPLE BLOOD; SAO2 99.3 % (95.0-100.0); SRATE 8 BPM; THB 10.1 g/dL (11.5-17.4); TVOL 500 mL; pH(98.6) 7.43 (7.35-7.45)
[2016-12-31 01:16] LABS: MODALITY VENTILATOR
[2016-12-31] MEDS ORDERED: VANCOMYCIN 1 GM/NS 1 GM/250 ML IVPB IV ONE (01:50)
[2016-12-31] MEDS: REGLAN IV SCH ×4 (01:53→20:16)
[2016-12-31] MEDS: ATIVAN IV PRN (01:54)
[2016-12-31] MEDS: DILAUDID IV PRN ×4 (01:54→22:56)
[2016-12-31 02:16] LABS: INR 1.56; PROTIME 16.9 Seconds (9.2-11.7)
[2016-12-31 02:20] LABS: ALBUMIN 2.7 g/dL (3.5-5.0); CALCIUM 8.5 mg/dL (8.8-10.2); POTASSIUM 3.5 mmol/L (3.5-5.1); TOTAL BILIRUBIN 24.5 mg/dL (0.20-1.00); TOTAL PROTEIN 5.6 g/dL (6.3-8.3)
[2016-12-31 02:21] LABS: HEMATOCRIT 32.3 % (37.0-47.0); HEMOGLOBIN 10.2 g/dL (12.0-16.0); MCH 34.7 PG (27-31); MCHC 31.6 g/dL (33-37); MCV 109.9 FL (81-99); MPV 12.8 FL (7.4-10.4); PLT 70 X1000 (130-400); RBC 2.94 XMIL (4.2-5.4)
[2016-12-31] MEDS: ZOSYN 2.25 GM/NS 2.25 GM/50 ML IVPB IV SCH (03:06)
[2016-12-31] MEDS: DUONEB (A & A) INH SCH ×6 (03:20→23:05)
--- NOTE | 2016-12-31 03:52 | PROGRESS NOTE ---
DATE: 12/30/2016 SUBJECTIVE: Patient is currently resting in bed. She is intubated, vented. She is off sedation but she has very few spontaneous body movements. She has not opened eyes. Family at bedside. No fevers reported today. No record of nausea or vomiting, although the patient is continuously having higher NG tube residuals. She is moving her bowels. OBJECTIVE: Vital Signs: Temperature 98, pulse rate of 106, respiratory rate 16, blood pressure 126/72, saturating 90% on 50% FiO2 mechanical ventilator. General Appearance: Moderately built, moderately nourished, lying in bed, intubated, vented, off sedation. HEENT: Pale conjunctivae. Icteric sclerae. Positive ET tube. Positive NG tube. Neck: Supple. Chest: Decreased. Cardiac: Tachycardic. Abdomen: Distended, body wall edema, anasarca noted, distended subcutaneous dilated veins noted. Bowel sounds heard. Extremities: No cyanosis, clubbing. Generalized anasarca noted. Neurologic: She is off sedation but has minimal spontaneous movements. She has not opened her eyes yet. Labs: Her hemoglobin and hematocrit are 8.7 and 28, white count of 18.78, platelet count of 46,000, MCV 113.8. Sodium of 132, potassium 3.1, chloride 99, bicarb 20, anion gap of 15, BUN of 8, creatinine 1.5, glucose of 99, calcium is 8.3. Bilirubin is 22.16, AST 68, ALT 21, alkaline phosphatase 115, total protein 5, albumin of 2.8. X-ray of chest done today showed no change from prior, stable patchy bibasilar infiltrates worse in the right lung base. IMPRESSION AND PLAN: 1. Alcoholic liver disease, liver failure of cirrhosis complicated with hepatorenal syndrome. We will continue supportive care. We will follow the daily labs. We will keep an eye on her liver enzymes, platelet count, INR, and ammonia level. She had dialysis yesterday. 2. Thrombocytopenia. We will continue to watch. 3. Nutrition. She is continuing to have higher NG tube residuals. We will try Reglan 5 mg intravenous every 8. 4. Hepatic encephalopathy. We will continue on lactulose 3 times daily. We will measure ammonia in the morning. 5. Respiratory failure, on ventilator. She is off sedation. So far, she has a minimal spontaneous movements and minimal return of brain function. 6. She will continue GI prophylaxis with proton pump inhibitors. 7. Bowel regimen. She will be continuing on lactulose. 8. I discussed the above plan of care with the patient's family at bedside and answered all questions. cc: MD Adriano Garcia MD James Boyle Reginald D. Gladish, MD Dr. Harney
[2016-12-31 03:58] LABS: BANDS 3 % (0-1); LYMPHS 9 % (21-51); MONO 1 % (1-9)
[2016-12-31 04:23] LABS: ALLEN TEST YES; BE -5.3 mmoll (-3.0-3.0); BLOOD TYPE ARTERIAL; DRAW SITE R RADIAL; METHB 0.7 % (0.0-1.5); PCO2(98.6) 29 mmHg (35-45); PO2(98.6) 65 mmHg (60-100); SAMPLE BLOOD; SAO2 96.7 % (95.0-100.0); SRATE 8 BPM; THB 9.9 g/dL (11.5-17.4); TVOL 500 mL; pH(98.6) 7.41 (7.35-7.45)
[2016-12-31 04:24] LABS: MODALITY VENTILATOR
[2016-12-31] MEDS: SODIUM CHLORIDE 0.9% INJ SCH (04:46)
[2016-12-31] MEDS: PROTONIX IV SCH ×2 (04:46→17:57)
--- NOTE | 2016-12-31 07:12 | Diag Imaging Result Doc PS360 ---
EXAM: CHEST-PORTABLE HISTORY: respiratory failure TECHNIQUE: AP portable erect at 0505 COMMENT: There is ill-defined opacity in both lung bases and the lungs are not well-expanded. Compared to the previous study of 12/30/2016 there has been slight improvement in the right lower lobe. There may be slight worsening of the left lower lobe however. The endotracheal tube NG tube and PICC line on the left are all in position as on the previous study. IMPRESSION: Bibasilar pneumonia. Electronically signed by Timur Escalante 12/31/2016 7:10 AM
[2016-12-31] MEDS ORDERED: NS 2,000 ML ONE (08:39)
[2016-12-31] MEDS: LACTULOSE PO SCH ×3 (09:19→17:57)
[2016-12-31] MEDS: TRENTAL PO SCH ×3 (09:19→17:58)
[2016-12-31] MEDS: ELDERTONIC NG SCH (09:19)
--- NOTE | 2016-12-31 09:20 | PROGRESS NOTE ---
DATE: 12/31/2016 SUBJECTIVE: She is still unresponsive. She does move her head and moves all extremities at times. Remains afebrile. OBJECTIVE: Vital signs: Temperature 95.7, pulse 94, respirations 20, blood pressure 129/79. CVP less than 6 cm. Lungs: Clear in all lung childs. Cardiovascular: Regular rhythm and rate without murmur or S3. Abdomen: Soft. Skin: Warm and dry. : Urine output 900 mL. LAB: White count is elevated at 36,770, hematocrit 32, platelet count 70,000. Chemistry: Sodium 131, potassium 3.45, chloride 95, BUN 16, creatinine 2.0, up from 1.5 yesterday. Alkaline phosphatase 163, ALT was 26, AST 90. Bilirubin 24.5, albumin 2.7. Chest x-ray: Bibasilar pneumonia. Bibasilar infiltrate. ASSESSMENT AND PLAN: 1. Alcoholic liver disease. Liver failure, cirrhosis, complicated by hepatorenal syndrome. Continue supportive care. Keep an eye on her liver enzymes, with bilirubin not going down very fast and her ammonia level. We will dialyze again today. She is on norepinephrine. Trying to keep her mean arterial pressure above 60. We also have her on Protonix 40 mg IV q.12. She is on vancomycin and Zosyn. 2. Thrombocytopenia, secondary to alcoholism and liver failure. Continue to follow. 3. Nutrition. Continue NG tube feeding as tolerated and try Reglan 5 mg IV q.8 hours. 4. Hepatic encephalopathy. Continue lactulose 3 times a day. 5. Respiratory failure, on a ventilator. She is off sedation but minimal response at this point. She does have spontaneous movements of all extremities. 6. Gastrointestinal prophylaxis. Continue proton pump inhibitors. 7. Bowel regimen. She continues to be on lactulose. Continue supportive care. Review of labs from today, I do not see any change. Review of orders, I do not see any change at this point. cc: Adriano Wick MD
--- NOTE | 2016-12-31 09:26 | PROGRESS NOTE ---
DATE: 12/31/2016 SUBJECTIVE: She remains sedated, though she is not on Diprivan. OBJECTIVE: Vital Signs: Blood pressure 129/79, heart rate 94, respirations 20, afebrile. Intake 2.8 L. Output 500 mL. Physical Examination: General: Chronically ill woman in no acute distress. Skin: Warm and dry with jaundice. HEENT: Pupils are equal. Conjunctivae are icteric. Oropharynx is dry. Neck: Neck veins are distended. Heart: Regular with no gallops or murmurs. Lungs: Have equal breath sounds. No crackles or wheezes. Abdomen: Distended and soft. Decreased bowel sounds. Extremities: Have 3+ edema. No clubbing or cyanosis. Laboratory Data: Sodium 131, potassium 3.5, chloride 95, bicarbonate 18, BUN 16, creatinine 2. Hemoglobin 10.2. IMPRESSION: 1. Acute kidney injury. She will continue sustained low-efficiency dialysis today with a goal of 4 L ultrafiltration. 2. Electrolytes are acceptable. 3. Acid-base: Little change. Bicarbonate 27 today. 4. Anemia, stable. 5. Fever with leukocytosis. Vancomycin was added. We will continue that after dialysis. cc: Fili Ortiz MD
[2016-12-31] MEDS ORDERED: PRIMAXIN 500 MG in NS 100 ML IV ONE ×2 (10:00→18:00)
--- NOTE | 2016-12-31 10:06 | PROGRESS NOTE ---
DATE: 12/31/2016 SUBJECTIVE: Patient currently resting in bed. She is intubated, vented. She is off sedation. She has minimal spontaneous movements. Her bilirubin is getting worse. She has been having difficulty with the NG tube feedings. She has been having persistently high residuals. We are trying Reglan and we will evaluate the results. No fever reported. She in fact has been slightly hypothermic. PHYSICAL EXAMINATION: Vital Signs: Temperature 95.7, pulse rate of 94, respiratory rate 20, blood pressure 129/79, saturating 100, FiO2 50%, mechanical ventilation. General Appearance: Moderately built, moderately nourished, lying in bed, intubated and vented. HEENT: Icteric sclerae. Pale conjunctivae. ET tube noted. NG tube noted. Neck: Is supple. Abdomen: Protuberant. Body wall edema noted. Positive ascites. Abdominal wall dilated veins noted. Bowel sounds are present. Extremities: No cyanosis, clubbing. Diffuse icterus noted. Neurologic: She is off sedation but has very minimal spontaneous movements. LABS: Her hemoglobin and hematocrit are 10.2 and 32.3, white count of 36.7, platelet count of 70,000. INR 1.5, PT of 16.9, PTT of 61.7. Sodium of 139, potassium 3.5, chloride of 95, bicarb 18, anion gap of 18, BUN of 16, creatinine of 2, glucose of 79, calcium 8.5. Total bilirubin is 24.5, AST 90, ALT 26, alkaline phosphatase 160, total protein 5.6, albumin of 2.7. IMPRESSION/PLAN: 1. Alcoholic liver cirrhosis with liver failure, hepatorenal syndrome, encephalopathy. In this regard, we will check patient's ammonia today. We will call consultation with Dr. Cristobal Phillips as the white count has jumped. 2. We will continue with antibiotics for now. 3. We will keep an eye on her liver enzymes, bilirubin level, and CBC. We will continue on GI prophylaxis with PPIs. We will continue on pentoxifylline 400 p.o. t.i.d. 4. We will continue on lactulose 30 mL p.o. t.i.d. 5. We will continue her on Reglan and evaluate the response. We may go up to 10 IV q.6 if she continues to have high residuals. 6. At some point, we may have to call neurology for the input of the patient's encephalopathy and off sedation. 7. Further recommendations pending hospital course. 8. For renal insufficiency, the patient is getting SLED today. cc: MD Adriano Garcia MD Lynn R. Buckner, MD James Boyle Reginald D. Gladish, MD MTDD
[2016-12-31] MEDS: FOLIC ACID 1 MG in NS 50.0 ML IV SCH (10:22)
[2016-12-31] MEDS: LEVOPHED 8 MG in D5 1/2 NS 250 ML IV SCH (10:31)
[2016-12-31] MEDS ORDERED: ALBUMIN 25% IV ONE (12:11)
[2016-12-31] MEDS: D5W 1,000 ML IV SCH (12:12)
[2017-01-01] MEDS: PRIMAXIN IV SCH ×3 (02:11→18:18)
[2017-01-01] MEDS: NS IV SCH ×3 (02:11→18:18)
[2017-01-01] MEDS: REGLAN IV SCH ×4 (02:11→20:53)
[2017-01-01] MEDS: DUONEB (A & A) INH SCH ×6 (03:25→23:01)
[2017-01-01] MEDS: ATIVAN IV PRN (03:59)
[2017-01-01] MEDS: PROTONIX IV SCH ×2 (03:59→17:11)
[2017-01-01 04:22] LABS: ALLEN TEST YES; BE -3.8 mmoll (-3.0-3.0); BLOOD TYPE ARTERIAL; DRAW SITE R RADIAL; METHB 1.6 % (0.0-1.5); O2(CT) 12.5 mL/dL (15.0-23.0); PCO2(98.6) 34 mmHg (35-45); PO2(98.6) 90 mmHg (60-100); SAMPLE BLOOD; SRATE 8 BPM; THB 9.1 g/dL (11.5-17.4); TVOL 500 mL; pH(98.6) 7.39 (7.35-7.45)
[2017-01-01 04:24] LABS: MODALITY VENTILATOR
[2017-01-01 04:36] LABS: HEMATOCRIT 29.6 % (37.0-47.0); HEMOGLOBIN 9.1 g/dL (12.0-16.0); MCH 34.6 PG (27-31); MCHC 30.7 g/dL (33-37); MCV 112.5 FL (81-99); PLT 72 X1000 (130-400); RBC 2.63 XMIL (4.2-5.4)
[2017-01-01 05:25] LABS: ALBUMIN 2.9 g/dL (3.5-5.0); CALCIUM 8.4 mg/dL (8.8-10.2); POTASSIUM 3.8 mmol/L (3.5-5.1); TOTAL BILIRUBIN 24.27 mg/dL (0.20-1.00); TOTAL PROTEIN 4.8 g/dL (6.3-8.3)
--- NOTE | 2017-01-01 07:20 | Diag Imaging Result Doc PS360 ---
CHEST-PORTABLE - 01/01/2017 INDICATION: respiratory failure TECHNIQUE: COMPARISON: 12/31/2016 FINDINGS: Stable endotracheal tube, left PICC line, and nasogastric tube in good position. Stable severely low lung volumes. There is slight improvement in aeration of the left lung base. Stable hazy infiltrate at the right lower lobe. Heart size and pulmonary vascularity remain normal. IMPRESSION: Perhaps slight improvement in aeration at the left lung base. Overall little change from prior. Electronically signed by Young Sharp 01/01/2017 7:18 AM
[2017-01-01] MEDS: LACTULOSE PO SCH ×3 (08:28→17:11)
[2017-01-01] MEDS: ELDERTONIC NG SCH (08:28)
[2017-01-01] MEDS: TRENTAL PO SCH ×3 (08:28→17:11)
[2017-01-01] MEDS: FOLIC ACID 1 MG in NS 50.0 ML IV SCH (08:30)
[2017-01-01] MEDS ORDERED: NS 2,000 ML ONE (08:31)
[2017-01-01] MEDS ORDERED: ALBUMIN 25% IV ONE ×2 (09:20→13:30)
--- NOTE | 2017-01-01 09:50 | PROGRESS NOTE ---
DATE: 01/01/2017 TIME SEEN: 0725. SUBJECTIVE: Ms. Longoria is resting quietly in bed. She remains ventilator dependent. She is sedated, though not on Diprivan. OBJECTIVE: Vital Signs: Her most recent vital signs, temperature 97.5 degrees , blood pressure 118/70, heart rate 101, respirations 17. She is on 60% FiO2 just decreased from 70%. Her saturation is 100%. She has had 1903 in, 3720 out. Laboratory Data: Sodium 133, potassium 3.8, chloride is 97, CO2 21, BUN 10, creatinine 1.5, glucose 93, anion gap 15, calcium 8.4, albumin 2.9. White count 37.77, hemoglobin 9.1, hematocrit 29.6. Her total bilirubin is 24.27, AST 191, ALT 42. ABGs, pH 7.39, CO2 34, PO2 90, bicarb 22, on 70% FiO2 with a lactate of 2.9. Sputum culture shows gram-negative rods. Physical Examination: General: This is a 46-year-old, white female. She is resting on the ventilator. She is in no acute distress. She appears chronically ill. Skin: Warm and dry. HEENT: Normocephalic, atraumatic. Conjunctivae are icteric. Pupils are equal. Oropharynx is dry. Neck: Supple. Trachea midline. No JVD. Cardiovascular: She is slightly tachycardic. Regular rate and rhythm. She is without murmur or gallop. Lungs: Clear to auscultation anteriorly. Equal excursion. Abdomen: Distended, soft. Positive bowel sounds. Genitourinary: Minimal urine out. Patient has had dialysis assist. Extremities: She continues with 2 to 3+ lower extremity edema. No clubbing or cyanosis. Integumentary: The patient is warm and dry. Skin is jaundiced. No petechiae, rashes, or lesions noted. ASSESSMENT AND PLAN: 1. Acute kidney injury. We will continue to plan for SLED today. She will dialyze for 8 hours on a 4 K bath, 27 bicarbonate. We will attempt to pull 3-4 L ultrafiltration as tolerated. 2. Electrolytes. Patient has mild hyponatremia with correction on dialysis. 3. Acid-base balance. This remains stable. 4. Anemia. This remains low but stable. 5. Fever with leukocytosis. Patient remains on vancomycin and continues on Levophed support. I would to thank you for allowing us to follow with this patient. Seen, data reviewed, discussed with Sabino Bustamante on 01/01/17. I agree with the above assessment and plan of care. rg Dictated by LEIGHANN Harris for Fili Ortiz MD cc: LEIGHANN Harris MD [facility]
[2017-01-01] MEDS: DILAUDID IV PRN ×2 (09:55→16:00)
[2017-01-01 10:15] LABS: HEPATITIS PROFILE ACUTE SEE COMMENTS
[2017-01-01] MEDS: LEVOPHED 8 MG in D5 1/2 NS 250 ML IV SCH (10:32)
--- NOTE | 2017-01-01 10:48 | PROGRESS NOTE ---
DATE: 01/01/2017 SUBJECTIVE: She does move to touch and pain. Is moving all extremities occasionally spontaneously. Eyes watering and her eyelids are dry so we are going to start some drops. She just started dialysis. Today she appears a little less jaundiced. White count 37. PHYSICAL EXAMINATION: Vital Signs: Temperature 97.5 degrees, pulse 102, respirations 13, blood pressure 127/59. CVP less than 6 cm. Lungs: Clear in all lung childs. Cardiovascular: Regular rate without murmur or S3. Weight 143 pounds. Urine output was over 3 L. LAB: White count 98083, hematocrit 29, platelet count 52524 which has come up a little bit. Chemistry: Sodium 133, potassium 3.8, chloride 97, bicarb 21, BUN 10, creatinine 1.5, bilirubin 24, GGT 191 and AST 42, alkaline phos 122. Albumin 2.9, blood sugars 83, 95, 93. ASSESSMENT AND PLAN: When we reviewed the chest x-ray from today, slight improvement in the areas of left lung. Overall little change. Stable endotracheal tube, left PICC line and nasogastric tube in good position stable, severely low lung volumes, slight improvement in the aerations of the lung bases. Stable hazy infiltrate in the right lower lobe. ASSESSMENT AND PLAN: 1. Alcoholic liver cirrhosis. Liver failure. Hepatorenal syndrome. Encephalopathy. Continue supportive measures. Dialysis again today. 2. Continue antibiotics, has leukocytosis. Treat empirically chest x-ray. It is difficult to tell if this is a true infiltrate. I will ask Dr. Phillips to see what he recommends. 3. Hepatic encephalopathy. 4. Respiratory failure on a ventilator. Good air and gas exchange. 5. Gastrointestinal dysfunction. She just really is not absorbing the nutrients. I have had to turn down the tube feeding. A lot of residual. We will continue the lactulose. We have her on vancomycin and Primaxin which we had stopped. Right now she is on the vancomycin after dialysis. She is on Primaxin 250 mg IV q. 8 hours. cc: Adriano Wick MD
[2017-01-01] MEDS: D5W 1,000 ML IV SCH (13:05)
[2017-01-01] MEDS: SODIUM CHLORIDE 0.9% INJ SCH (17:11)
[2017-01-01] MEDS: VANCOMYCIN 1 GM/NS 1 GM/250 ML IVPB IV SCH (17:11)
[2017-01-02] MEDS: NS IV SCH ×3 (01:59→17:09)
[2017-01-02] MEDS: REGLAN IV SCH ×4 (01:59→20:22)
[2017-01-02] MEDS: PRIMAXIN IV SCH ×3 (01:59→17:09)
[2017-01-02] MEDS: LEVOPHED 8 MG in D5 1/2 NS 250 ML IV SCH (03:33)
[2017-01-02] MEDS: DUONEB (A & A) INH SCH ×6 (03:50→22:52)
[2017-01-02 04:16] LABS: ALLEN TEST YES; BE -5.5 mmoll (-3.0-3.0); BLOOD TYPE ARTERIAL; DRAW SITE R RADIAL; O2(CT) 12.9 mL/dL (15.0-23.0); PCO2(98.6) 32 mmHg (35-45); PO2(98.6) 105 mmHg (60-100); SAMPLE BLOOD; SAO2 100.4 % (95.0-100.0); SRATE 8 BPM; THB 9.3 g/dL (11.5-17.4); TVOL 500 mL; pH(98.6) 7.38 (7.35-7.45)
[2017-01-02 04:17] LABS: MODALITY VENTILATOR
[2017-01-02 05:03] LABS: MAGNESIUM 1.8 mg/dL (1.5-2.7)
[2017-01-02] MEDS: DILAUDID IV PRN ×4 (05:34→20:23)
[2017-01-02] MEDS: PROTONIX IV SCH ×2 (05:34→16:35)
[2017-01-02 06:00] LABS: CALCIUM 8.4 mg/dL (8.8-10.2); TOTAL BILIRUBIN 25.33 mg/dL (0.20-1.00); TOTAL PROTEIN 5.1 g/dL (6.3-8.3)
--- NOTE | 2017-01-02 06:13 | Diag Imaging Result Doc PS360 ---
EXAM: CHEST-PORTABLE HISTORY: respiratory failure TECHNIQUE: Portable AP COMPARISON: 01/01/2017 FINDINGS: No change in the position of the endotracheal tube, left-sided PICC line, or nasogastric tube. The lungs are poorly expanded. There is atelectasis or infiltrates in the right lower lobe. Smaller infiltrates in the left base behind the heart persist. IMPRESSION: No interval improvement. Findings in the right base may be slightly more pronounced. Electronically signed by Rafael Spicer 01/02/2017 6:10 AM
[2017-01-02] MEDS ORDERED: HEPARIN ONE (07:06)
[2017-01-02] MEDS ORDERED: ALBUMIN 25% ONE (07:07)
[2017-01-02] MEDS ORDERED: NS 2,000 ML ONE (07:07)
[2017-01-02] MEDS ORDERED: ALBUMIN 25% IV ONE (07:08)
[2017-01-02] MEDS: FOLIC ACID 1 MG in NS 50.0 ML IV SCH (08:47)
[2017-01-02] MEDS: ELDERTONIC NG SCH (08:48)
[2017-01-02] MEDS: TRENTAL PO SCH ×3 (08:48→16:35)
[2017-01-02] MEDS: LACTULOSE PO SCH ×3 (08:48→16:35)
[2017-01-02] MEDS: MYCAMINE 100 MG in NS 100 ML IV SCH (11:10)
[2017-01-02] MEDS: LEVAQUIN 250 MG/D5W 250 MG/50 ML IVPB IV SCH (11:10)
--- NOTE | 2017-01-02 11:13 | PROGRESS NOTE ---
DATE: 01/02/2017 SUBJECTIVE: She remains sedated and on the ventilator. OBJECTIVE: Vital Signs: Blood pressure 136/55, heart rate 95, respirations 26, afebrile. Intake 2.2 L. Output 4 L. Physical Examination: General: No acute distress. Skin: Warm and dry. HEENT: Conjunctivae are icteric. Pupils are equal. Neck: Neck veins are not visible. Trachea is midline. Heart: Regular. No gallops. Lungs: Have equal breath sounds, coarse, few crackles. Abdomen: Distended and soft. Bowel sounds are diminished but present. Extremities: Have 2 to 3+ edema. No clubbing or cyanosis. Laboratory Data: Sodium 136, potassium 4, chloride 103, bicarbonate 17, BUN 9, creatinine 1. Hemoglobin 9.1. IMPRESSION: 1. Acute kidney injury. Hepatorenal syndrome with acute fatty liver. Continue daily SLED. Plan 4 K bath, 27 bicarbonate, 4 L ultrafiltration. 2. Electrolytes are in target. 3. Acid-base in target. 4. Anemia, stable. cc: Fili Ortiz MD
--- NOTE | 2017-01-02 11:26 | PROGRESS NOTE ---
DATE: 01/02/2017 SUBJECTIVE: Today, Ms. Longoria continues to be extremely critical. Both parents were in the room at the time of the encounter. Per the nursing staff, there have not been any major changes overnight. The patient had some clear loose bowel today. OBJECTIVE: Vital Signs: Blood pressure is 136/55, pulse is 95, respirations are 26, temperature is 97.3 degrees. Patient is saturating 100% on the mechanical ventilator. General Examination: Ms. Longoria is a 46-year-old, female. She is in bed, intubated, not on any sedation, and does not show any spontaneous movement. HEENT: Mucosa is pink, grossly icteric , no cyanosis. Chest: Air entry is bilaterally reduced. There are some transmitted sounds from the ventilator. Cardiovascular: Regular rate and rhythm. I did not appreciate any murmurs. Abdomen: Soft, is distended. Bowel sounds are reduced. There is a huge hepatomegaly extending all the way from the right upper quadrant to the pubis. Extremities: About 1+ pedal edema. ASSEMBLER ARRANGER: Patient is stuporous, only responds to extreme painful stimulation. Pupils are equal and are sluggishly reactive to light. The patient does have adequate gag reflex. She would grimace to painful stimulation. No verbal response and no spontaneous eye movements. Laboratory Data: WBC is up to 37.77, hemoglobin is 9.1, platelet count is 47, 000. This labs are from yesterday. I do not see any new CBC today. The chemistry shows sodium is 136, potassium 4, chloride is 103, bicarb is 17, phosphorus is 1.3. Cortisol level is normal. MEDICATIONS: 1. Folic acid. 2. Imipenem 250 q.8 hourly. 3. Lactulose 30 p.o. 3 times per day. 4. Norepinephrine drip. 5. Pantoprazole. 6. Pentoxifylline 40 mg 3 times per day. 7. Vancomycin 1 g after each dialysis. ASSESSMENT: 1. 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 2. Altered mental status secondary to hepatic failure. 3. Respiratory failure, on ventilator. 4. Acute liver failure in the setting of acute liver injury. There is a suspicion for hepatorenal syndrome. Renal function has not really improved. The patient is getting hemodialysis. 5. E. coli ( ESBLE) and Klebsiella urinary tract infection. Patient is on antibiotic. There is a new culture, urine culture on the which shows yeast. I am concerned this could also be driving her white cell count to be high. We will start her on micafungin and consult Dr. Phillips. 6. E.Coli ESBLE sputum culture, possibly causing ventilation associated pneumonia since the WBC is also high and a chest x-ray which was done today continues to show some right base infiltrate. She has been started on imipenim. Will monitor for seizures since patient is already altered in sensorium Patient will continue with the current antibiotics and we would await Dr. Phillips's further recommendations. PLAN: I did speak at length with the family members of Ms. Longoria (the mother and the father). I did explain to them the critical nature of the patient and it is just going to be a matter of time for us to know if she is going to improve or if she is going to go downhill. Ms. Longoria is extremely sick with a very poor prognosis. Critical time spent is 45 minutes. cc: Bobby Foster MD MTDD
[2017-01-02] MEDS: D5W 1,000 ML IV SCH (12:20)
[2017-01-02] MEDS: ATIVAN IV PRN ×2 (13:02→17:40)
--- NOTE | 2017-01-02 15:51 | PROGRESS NOTE ---
DATE: 01/01/2017 SUBJECTIVE: The patient is intubated, sedated, and not responsive. Family is at bedside. She actually looks much worse since the last Saturday, when she is getting hemodialysis. PHYSICAL EXAMINATION: Vital Signs: Temperature of 96 degrees, pulse of 90 to 100, respirations 20, blood pressure 120/70, O2 saturation is 100% on mechanical ventilation with FiO2 50%. HEENT: scleral icterus. Pale conjunctivae. The patient has an NG tube and ET tube. Lungs: Clear. Abdomen: Edema, generalized anasarca, and ascites. Extremities: Again edema present. She is not responding. LABS: Hematocrit 32, platelets 70,000. INR 1.5, creatinine 2, bilirubin 24.5. IMPRESSION AND PLAN: 1. Severe alcoholic cirrhosis with liver failure. 2. Hepatorenal syndrome. Getting dialysis. 3. Gastrointestinal prophylaxis. Continue PPI. 4. Continue lactulose. Watch the ammonia level. 5. Dialysis as per renal. I think everything is done. All the supportive systems in place. I have talked to the family about critical state the patient is in, but everything is done. We will just have to wait and see the clinical course and her response. Family seems to understand it. cc: Marisel Ivey MD
[2017-01-02] MEDS: SODIUM CHLORIDE 0.9% INJ SCH (16:35)
[2017-01-02] MEDS: CLINIMIX E 4.25%-5% SOLUTION 1,000 ML IV SCH (17:06)
[2017-01-02] MEDS: VANCOMYCIN 1 GM/NS 1 GM/250 ML IVPB IV SCH (17:09)
--- NOTE | 2017-01-02 17:24 | PROGRESS NOTE ---
DATE: 01/02/2017 The patient is currently intubated, vented, and lying in bed. Her present at bedside. According to the nursing staff she has failed NG tube feeding trials. They have been halted for now. No fever reported. Has been having some liquid bowel movements. No blood noted in the bowel movements. Vitals: 99.1, pulse of 108, respiratory rate 20, blood pressure 108/50, saturating 90% on mechanical ventilation of 50% FiO2. General appearance: Thinly built, lying in bed, intubated and vented. Not on any sedation. She is getting some Dilaudid IV p.r.n. when she is agitated. HEENT: Positive ET tube noted icteric sclerae. Pale conjunctivae. Neck: Is supple. Abdomen: Is distended. Bowel sounds are present but hypoactive. No guarding. Extremities: Anasarca noted. Neurologic: She is intubated, vented and receiving IV Dilaudid as needed. At the time she was having some spontaneous head movements with no spontaneous eye opening was noted. LABS: H and hematocrit is 9.1 and 29.6 from yesterday. White count 37.7, platelet count of 72,000. INR 1.5. Sodium 136, potassium 4, chloride 103, bicarb of 17, anion gap was 16. BUN of 9, creatinine 1, glucose 119, calcium 8.4, phosphorus 1.3, magnesium 1.8. Total bilirubin is 25.3, AST 223, ALT 54, alkaline phosphatase 119, total protein 5.1, albumin of 3. Hepatitis panel is nonreactive. IMPRESSION/PLAN: 1. Severe alcoholic cirrhosis with liver failure. Continue on the current plan of care supportive care. 2. Respiratory failure. She is being followed by the Pulmonary Department. Dr. Baires has been talking with the family every day. In a few days they will have to decide about possible trach as the patient is already intubated for more than a week. 3. Hepatorenal syndrome. She is currently getting SLED dialysis today. 4. Malnutrition. At some point, we will have to retry the NG tube feeding and if she fails, we may have to consider other more modes like Clinimix. I will start her on Clinimix today. 5. Hepatic encephalopathy. We will continue on lactulose for now. 6. Thrombocytopenia, anemia and coagulopathy, jaundice all secondary to severe liver cirrhosis and liver failure. We will continue to follow. I discussed the above plan of care with the patient's family at bedside. I also discussed the poor prognosis for the patient with the patient's family at bedside. We will follow along. cc: MD Rob Garcia MD Raphael K. Quansah, MD Lynn R. Buckner, MD Reginald D. Gladish, MD Dr. Harney
[2017-01-03] MEDS: DUONEB (A & A) INH SCH ×6 (03:08→22:48)
[2017-01-03] MEDS: PRIMAXIN IV SCH ×3 (03:10→17:52)
[2017-01-03] MEDS: REGLAN IV SCH ×4 (03:10→21:14)
[2017-01-03] MEDS: NS IV SCH ×3 (03:10→17:52)
[2017-01-03 04:30] LABS: HEMATOCRIT 26.9 % (37.0-47.0); HEMOGLOBIN 8.4 g/dL (12.0-16.0); MCH 36.5 PG (27-31); MCHC 31.2 g/dL (33-37); PLT 78 X1000 (130-400)
[2017-01-03 04:34] LABS: BE -0.6 mmoll (-3.0-3.0); BLOOD TYPE ARTERIAL; DRAW SITE R RADIAL; PCO2(98.6) 35 mmHg (35-45); PO2(98.6) 82 mmHg (60-100); SAMPLE BLOOD; SRATE 8 BPM; TVOL 500 mL; pH(98.6) 7.43 (7.35-7.45)
[2017-01-03 04:35] LABS: ALLEN TEST YES; MODALITY VENTILATOR
[2017-01-03] MEDS: DILAUDID IV PRN ×3 (04:40→20:23)
[2017-01-03] MEDS: PROTONIX IV SCH ×2 (04:41→16:34)
[2017-01-03 04:52] LABS: AGAP 14; ALKALINE PHOSPHATASE 113 U/L (32-104); BUN 12 mg/dL (8-22); CALCIUM 8.5 mg/dL (8.8-10.2); CHLORIDE 101 mmol/L (98-107); COSMO 273; GOT 208 U/L (10-30); GPT 56 U/L (10-36); POTASSIUM 4.2 mmol/L (3.5-5.1); SODIUM 136 mmol/L (136-145); TCO2 21 mmol/L (25-35); TOTAL BILIRUBIN 23.41 mg/dL (0.20-1.00); TOTAL PROTEIN 5.3 g/dL (6.3-8.3)
[2017-01-03] MEDS: LEVOPHED 8 MG in D5 1/2 NS 250 ML IV SCH (06:20)
[2017-01-03] MEDS: CLINIMIX E 4.25%-5% SOLUTION 1,000 ML IV SCH ×2 (06:20→21:13)
[2017-01-03] MEDS ORDERED: HEPARIN ONE (07:23)
[2017-01-03] MEDS ORDERED: NS 2,000 ML ONE (07:23)
--- NOTE | 2017-01-03 07:28 | Diag Imaging Result Doc PS360 ---
CHEST-PORTABLE - 01/03/2017 INDICATION: respiratory failure TECHNIQUE: COMPARISON: 01/02/2017 FINDINGS: Support lines and tubes are stable. Stable severely low lung volumes. There is little change in the hazy infiltrates or atelectasis in the lung bases. Heart size remains normal. IMPRESSION: No significant change from prior. Electronically signed by Young Sharp 01/03/2017 7:25 AM
[2017-01-03] MEDS: ELDERTONIC NG SCH (08:22)
[2017-01-03] MEDS: LACTULOSE PO SCH ×3 (08:23→16:36)
[2017-01-03] MEDS: TRENTAL PO SCH ×3 (08:23→16:35)
[2017-01-03] MEDS: FOLIC ACID 1 MG in NS 50.0 ML IV SCH (08:30)
--- NOTE | 2017-01-03 09:49 | PROGRESS NOTE ---
DATE: 01/03/2017 SUBJECTIVE: She remains obtunded. OBJECTIVE: Vital Signs: Blood pressure 122/71, heart rate 100, respirations 24, afebrile. Intake 2.9 L; output 2.9 L. General: On physical exam, a chronically ill middle-aged woman in no acute distress. Skin: Warm and dry with jaundice, a few spiders. HEENT: Conjunctivae are icteric. Oropharynx is dry. Neck: Neck veins are not appreciated. Heart: Regular. Lungs: Have equal breath sounds. Coarse. A few crackles. Abdomen: Distended and soft. Bowel sounds are present. Extremities: Have 2+ to 3+ edema. No clubbing or cyanosis. LABORATORY DATA: Sodium 136, potassium 4.2 chloride 101, bicarbonate 21, BUN 12, creatinine 0.9, hemoglobin 8.4. IMPRESSION: 1. Acute kidney injury. No recovery. Continue daily slow, low efficiency dialysis for volume management and electrolyte management. Target 3 L ultrafiltration today. 2. Electrolytes, acceptable. 3. Acid-base in target. 4. Anemia: Stable. cc: Fili Ortiz MD
[2017-01-03] MEDS: LEVAQUIN 250 MG/D5W 250 MG/50 ML IVPB IV SCH (10:55)
[2017-01-03] MEDS: MYCAMINE 100 MG in NS 100 ML IV SCH (10:55)
--- NOTE | 2017-01-03 11:33 | PROGRESS NOTE ---
DATE: 01/03/2017 SUBJECTIVE: This morning, Ms. Longoria continues to be relatively stable. I met her and her dad, and her sister, at the time of the encounter. Per the nursing staff, the night was uneventful. OBJECTIVE: Vital Signs: Blood pressure is 123/71, pulse of 100, respirations are 24, temperature is 96.8 degrees. General Examination: Ms. Longoria is a 46-year-old, female. She is in bed, intubated, on no sedation, and has no spontaneous movement. HEENT: Mucosa is pink and moist. Patient is grossly icteric. Chest: Air entry is bilaterally reduced. There are some transmitted sounds from the ventilator and some bilateral crepitations. Cardiovascular: Regular rate and rhythm. Abdomen: Soft, is distended. There is a large hepatomegaly palpated. Extremities: No pedal edema. AIRCRAFT DESIGN ENGINEER: Patient is stuporous, will only respond to very painful stimulation with the movement of the head and also with drawing up her extremities. The pupils are equal. They are sluggishly reactive to light. There is adequate gag reflex. Laboratory Data: WBC is down to 28.56, hemoglobin is 8.4, platelet count is 78,000. These have all slightly improved. Chemistry is normal. Total bilirubin is down to 23.41, AST is 208, ALT is 56, alkaline phosphatase 113. These have all improved. Patient's ABG, pH 7.43, pCO2 35, PaO2 is 83. Patient is currently on mechanical ventilation on AC mode at a rate of 8, FiO2 of 50, tidal volume of 500, and PEEP of 8. MEDICATIONS: Have been reviewed. ASSESSMENT: 1. 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 2. Altered mental status secondary to toxic hepatic encephalopathy, likely from hepatic failure. 3. Respiratory failure, on ventilator. 4. Acute renal failure in the setting of acute liver failure, suspicious for hepatorenal syndrome. Patient has not shown any remarkable improvement. She is currently on dialysis on SLED. 5. Escherichia coli and extended-spectrum B-lactamase urinary tract infection. 6. Candiduria. Patient has been started on micafungin. 7. Escherichia coli extended-spectrum B-lactamase sputum positive culture, suspicious for ventilation associated pneumonia. Patient is on imipenem. PLAN: In general, I think Ms. Longoria continues to be stable, has not shown any remarkable improvement but has not deteriorated. Her numbers actually look slightly better than yesterday. We are going to continue with the current antibiotic coverage, ventilator support, dialysis support. Continue with the NG tube feeding and the Clinimix. In general, Ms. Longoria's condition continues to be extremely critical with a very poor prognosis. I discussed this with the , the father, and the sister today. Critical time spent was 45 minutes. cc: Bobby Foster MD
[2017-01-03] MEDS: XIFAXAN PO SCH ×2 (12:47→21:13)
--- NOTE | 2017-01-03 13:09 | PROGRESS NOTE ---
DATE: 01/03/2017 SUBJECTIVE: Patient is resting in bed. She is intubated and vented. She is not on any sedation. Her father and sister are present at bedside. No fever reported in the last 24 hours. No nausea or vomiting noted, but she continues to have high NG tube residuals. We are going to try the trickle feeds and we will start her on Reglan and observe the response. She had 1 soft stool clear jelly-like today reported. OBJECTIVE: Vital signs: Temperature 98.2 degrees, pulse of 106, respiratory 29, blood pressure 109/68, saturating 96% on 50% FiO2 mechanical ventilator. General Appearance: Thinly built, lying in bed, intubated and vented. HEENT: Pale conjunctivae and icteric sclerae. NG tube in place. Neck: Supple. Abdomen: Distended. Positive anasarca. Bowel sounds are hypoactive. Extremities: No cyanosis, clubbing. Icteric sclerae. Icterus noted throughout the skin throughout the body. Positive anasarca. Neurologic: She has some spontaneous head movements, but she does not open her eyes to commands. She withdraws to noxious stimuli. LABORATORY: Hemoglobin and hematocrit is 8.4, 26.9, white count of 28.56, platelet count 78,000, MCV of 117. Sodium 136, potassium 4.2, chloride 101, bicarb 21, anion gap of 14, BUN of 12, creatinine 0.9, glucose of 115, calcium is 8.5, total bilirubin is 23.4, AST 208, ALT 56, alkaline phos 113. Total protein 5.2, albumin of 3. IMPRESSION AND PLAN: 1. Alcoholic liver cirrhosis, complicated with liver failure, encephalopathy, thrombocytopenia, jaundice, coagulopathy, renal insufficiency, hepatorenal syndrome, and malnutrition. 2. Hepatorenal syndrome. 3. Malnutrition. 4. Encephalopathy. 5. Respiratory failure. 6. High nasogastric tube residuals. RECOMMENDATIONS: 1. She is already on antibiotics per the primary care team. We will continue with those. 2. We will keep her on Clinimix for now to help support her nutrition. 3. We will give her a trial of Reglan and see she can tolerate nasogastric tube feeds. 4. She will continue on lactulose 30 mL p.o. t.i.d. 5. We will add Xifaxan to see if she shows any improvement in her neurological status. 6. She will continue on dialysis support per the Nephrology Team. 7. We will continue on pentoxifylline p.o. t.i.d. 8. We will continue gastrointestinal prophylaxis with PPI twice daily. 9. We will continue multivitamin once daily. 10. The above plan of care discussed with the patient's family. cc: MD Rob Garcia MD Reginald D. Gladish, MD Katherine Takundwa, MD
[2017-01-03] MEDS: ATIVAN IV PRN ×2 (14:02→15:35)
[2017-01-03] MEDS: VANCOMYCIN 1 GM/NS 1 GM/250 ML IVPB IV SCH (16:29)
[2017-01-03] MEDS: SODIUM CHLORIDE 0.9% INJ SCH (16:34)
[2017-01-04] MEDS: ATIVAN IV PRN ×3 (00:24→13:16)
[2017-01-04] MEDS: PRIMAXIN IV SCH ×3 (02:00→17:13)
[2017-01-04] MEDS: NS IV SCH ×3 (02:00→17:13)
[2017-01-04] MEDS: DUONEB (A & A) INH SCH ×6 (03:25→23:07)
[2017-01-04] MEDS: REGLAN IV SCH ×4 (03:48→21:44)
[2017-01-04] MEDS: DILAUDID IV PRN ×3 (03:49→13:16)
[2017-01-04 04:51] LABS: ALLEN TEST YES; BE -1.8 mmoll (-3.0-3.0); DRAW SITE R RADIAL; METHB 0.3 % (0.0-1.5); O2(CT) 9.6 mL/dL (15.0-23.0); PCO2(98.6) 38 mmHg (35-45); SAMPLE BLOOD; SAO2 87.1 % (95.0-100.0); SRATE 8 BPM; THB 8.1 g/dL (11.5-17.4); TVOL 500 mL; pH(98.6) 7.39 (7.35-7.45)
[2017-01-04 04:52] LABS: BLOOD TYPE MIXED ART/VENOUS; PO2(98.6) 49 mmHg (60-100)
[2017-01-04 04:53] LABS: MODALITY VENTILATOR
[2017-01-04] MEDS: PROTONIX IV SCH ×2 (05:19→16:52)
[2017-01-04] MEDS: SODIUM CHLORIDE 0.9% INJ SCH ×2 (05:19→16:52)
[2017-01-04 06:02] LABS: HEMATOCRIT 27.6 % (37.0-47.0); HEMOGLOBIN 8.2 g/dL (12.0-16.0); MCH 34.7 PG (27-31); MCHC 29.7 g/dL (33-37); MCV 116.9 FL (81-99); PLT 84 X1000 (130-400); RBC 2.36 XMIL (4.2-5.4)
[2017-01-04 06:04] LABS: INR 1.67; PROTIME 18.1 Seconds (9.2-11.7)
[2017-01-04 06:24] LABS: AGAP 14; ALBUMIN 2.5 g/dL (3.5-5.0); ALKALINE PHOSPHATASE 123 U/L (32-104); BUN 18 mg/dL (8-22); CALCIUM 8.5 mg/dL (8.8-10.2); CHLORIDE 100 mmol/L (98-107); COSMO 271; GOT 255 U/L (10-30); GPT 63 U/L (10-36); POTASSIUM 4.6 mmol/L (3.5-5.1); SODIUM 134 mmol/L (136-145); TCO2 20 mmol/L (25-35); TOTAL PROTEIN 5.3 g/dL (6.3-8.3)
--- NOTE | 2017-01-04 06:28 | Diag Imaging Result Doc PS360 ---
EXAM: CHEST-PORTABLE HISTORY: respiratory failure TECHNIQUE: Portable COMPARISON: 01/03/2017 FINDINGS: No change in the endotracheal tube, nasogastric tube, or in the left sided PICC line. Heart is not enlarged. Infiltrates are less pronounced. Small infiltrates or atelectasis remain in the lung bases. No pleural effusions identified. IMPRESSION: Mild interval improvement. Electronically signed by Rafael Spicer 01/04/2017 6:25 AM
[2017-01-04] MEDS ORDERED: HEPARIN ONE (07:07)
[2017-01-04] MEDS ORDERED: NS 2,000 ML ONE (07:07)
[2017-01-04] MEDS: LACTULOSE PO SCH ×3 (08:38→16:52)
[2017-01-04] MEDS: ELDERTONIC NG SCH (08:38)
[2017-01-04] MEDS: XIFAXAN PO SCH ×2 (08:39→21:45)
[2017-01-04] MEDS: TRENTAL PO SCH ×3 (08:39→16:52)
[2017-01-04] MEDS: FOLIC ACID 1 MG in NS 50.0 ML IV SCH (08:39)
[2017-01-04] MEDS: LEVOPHED 8 MG in D5 1/2 NS 250 ML IV SCH ×2 (09:54→22:14)
[2017-01-04] MEDS: MYCAMINE 100 MG in NS 100 ML IV SCH ×2 (10:11→16:07)
[2017-01-04] MEDS: LEVAQUIN 250 MG/D5W 250 MG/50 ML IVPB IV SCH ×2 (10:11→16:29)
[2017-01-04] MEDS ORDERED: DILAUDID IV ONE (10:36)
--- NOTE | 2017-01-04 11:06 | PROGRESS NOTE ---
DATE: 01/04/2017 SUBJECTIVE: She is about the same. Unresponsive. OBJECTIVE: Vital Signs: Blood pressure 117/65, heart rate 99, respirations 23. Afebrile. Intake 2.8 L. Output 3.3 L. General: No acute distress. Skin: Warm and dry. HEENT: Conjunctivae are pink and icteric. Oropharynx is dry. Neck: Neck veins are distended. Heart: Regular. Lungs: Have equal breath sounds. Coarse. No crackles. Abdomen: Distended and soft. Bowel sounds are minimal. Extremities: Have 3+ edema. No clubbing or cyanosis. LABORATORY DATA: Sodium 134, potassium 4.6, chloride 100, bicarbonate 20, BUN 18, creatinine 0.8, hemoglobin 8.2. IMPRESSION: 1. Acute kidney injury. Still no urine output. We will continue SLEDD for volume management. Electrolyte management is excellent. 2. Acid-base is in target. 3. Anemia is stable. cc: Fili Ortiz MD
[2017-01-04] MEDS: CLINIMIX E 4.25%-5% SOLUTION 1,000 ML IV SCH (11:15)
--- NOTE | 2017-01-04 11:45 | PROGRESS NOTE ---
DATE: 01/04/2017 SUBJECTIVE: This morning, Ms. Longoria continues to be critically sick. The father was at the bedside at the time of the interview. I was told that she had a temperature over 102.7 yesterday, and consistently had some temperature issues last night. She had to be put under cool blankets. OBJECTIVE: Vital signs: Blood pressure is now 117/65, pulse of 99, respirations 23, and temperature 97.8 degrees. General exam: Ms. Longoria is a 46-year-old female. She is critically sick, continues to be intubated, synchronizing well with the ventilator, but she has an episode of tachypnea. HEENT: Mucosa is pink. Extremely jaundiced. Chest: Air entry is bilaterally reduced. There are some transmitted sounds from the ventilator. Cardiovascular: Tachycardic. Abdomen: Soft, distended. There is a large hepatomegaly palpable. Bowel sounds are hypoactive. Extremities: No pedal edema. STATIONARY STEAM ENGINEER: Patient is completely stuporous/comatose, not responding to even painful stimulation today. The pupils are sluggishly reactive. Patient showed minimal gag reflex today. LABORATORY DATA: WBC is 33.1, hemoglobin is 8.2, platelet count is 84. INR is 1.67. Chemistry: Sodium is 134, potassium 4.6, chloride is 100, bicarbonate is 20. Glucose is 115. AST is 255, ALT is 63, alkaline phosphatase is 126. IMAGING: Chest x-ray done today shows mild interval improvement. ASSESSMENT: 1. Comatose likely due to underlying hepatic encephalopathy. Patient today shows worsening of her encephalopathy. I think she probably might have developed cerebral edema from her liver failure, and is now getting to the later stages of her life. 2. 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 3. Respiratory failure. 4. Acute renal failure in the setting of acute liver failure suspicious for hepatorenal syndrome. 5. Escherichia coli and Klebsiella urinary tract infection. 6. Candiduria. Patient on Micafungin. 7. Escherichia coli positive sputum cultures suspicious for ventilator- associated pneumonia. PLAN: So, in general today Ms. Longoria looks worse than yesterday. She is showing autonomic dysregulation, which is consistent with brainstem injury. I think she probably might have developed cerebral edema from her acute liver disease. All her CBC also looking worse today. Taking into consideration, I think her prognosis is even worse than yesterday, and I anticipate that she will probably from her disease within a day or two. I have updated the father. At this point, they still want to continue the care, but they do not want any chest compression or any shock. cc: Bobby Foster MD MTDD
--- NOTE | 2017-01-04 15:38 | CONSULTATION ---
DATE OF CONSULTATION: 01/04/2017 HISTORY OF PRESENT ILLNESS: The patient is unable provide a history. Her father was there but he did not know much about her medical history. Therefore, the history that I obtained is through the computer. CONCLUSION: Patient now is in ICU on a ventilator. She has a marked leukocytosis. She appears to have an extended spectrum beta lactamase producing E. coli pneumonia. She also has a fungal urinary tract infection. RECOMMENDATION: The patient is being covered with antimicrobial agents very well for both the E. coli pneumonia and the fungal urinary tract infection. She is also on other antibiotics that would provide broad-spectrum coverage for pathogens such as methicillin- resistant Staph aureus and Legionnaires' disease. As far as her antibiotic management I do not have anything to add. The patient does have a marked leukocytosis. When she came in she did have a CT scan of the chest, abdomen and pelvis which showed pleural effusions, basilar atelectasis, lung infiltrates, some traces of extraluminal air, a thickened colon wall, hepatomegaly, distended gallbladder without any definite inflammatory changes. I would doubt that in this interim some intraabdominal catastrophe has occurred which would be causing the patient's white count elevation at this time. In any event, it would probably be very difficult to obtain a CT scan of her abdomen given that she is on a ventilator and is on pressor agents. The patient has a history of alcoholism which undoubtedly has caused her to have cirrhosis of the liver. She also smokes cigarettes which also undoubtedly would cause her to have severe COPD. The patient has ascites but her clotting would not permit paracentesis and her current antibiotic regimen would cover most organisms that cause peritonitis. PAST MEDICAL HISTORY: Positive for chronic pain secondary to disk bulging at L3 -4 and S1, also history of alcohol abuse and cigarette smoking. PAST SURGICAL HISTORY: Positive for gastric bypass surgery and also had ulcer surgery, she has also had a hysterectomy. SOCIAL HISTORY: The patient abuses alcohol and cigarettes. There is no history of illicit drug use. FAMILY HISTORY: Positive for chronic pain and systemic lupus. ALLERGIES: The patient has no known drug allergies. HOME MEDICATIONS: Included AcipHex, fentanyl patch, Zofran and methocarbamol. LABORATORY: Lab studies from today show a CBC with a white count of 32,310, hemoglobin 8.2, platelet count 84,000. Blood gases show a pH of 7.43, a PO2 of 82, a pCO2 of 35. Creatinine is 0.8 with a GFR of greater than 60. Bilirubin is 21.3. Hepatitis panel is nonreactive. Recent chest x-ray shows bibasilar infiltrates. Sputum is growing an extended spectrum beta lactamase producing E. coli. Urine is growing yeast. PHYSICAL EXAMINATION: Vital signs: Temperature is 97.8 degrees, pulse 103, respirations 23, blood pressure 117/65. General: This is an ill-appearing, icteric middle-aged female who is intubated and sedated. Head, eyes, ears, nose, and throat: Patient has oral gastric and nasotracheal tube in place. She has got scleral icterus. Neck: No meningismus. Thorax: Slight increased AP diameter of the chest. Lungs: Scattered rhonchi bilaterally. Cardiovascular: Heart rate is regular. Abdomen: Soft. It did not appear to be tender. Neurologic: Patient is obtunded. She made no spontaneous movements during my exam. Integument: No rash noted. Thank you for the consult. cc: Cristobal Phillips MD MTDMarcela
[2017-01-04] MEDS: VANCOMYCIN 1 GM/NS 1 GM/250 ML IVPB IV SCH (16:29)
[2017-01-04] MEDS ORDERED: DUONEB (A & A) ONE (23:06)
[2017-01-05] MEDS: ATIVAN IV PRN ×3 (01:36→21:20)
[2017-01-05] MEDS: CLINIMIX E 4.25%-5% SOLUTION 1,000 ML IV SCH ×2 (02:12→15:04)
[2017-01-05] MEDS: PRIMAXIN IV SCH ×3 (02:13→17:11)
[2017-01-05] MEDS: NS IV SCH ×3 (02:13→17:11)
[2017-01-05] MEDS: REGLAN IV SCH ×4 (03:03→21:20)
[2017-01-05] MEDS ORDERED: DUONEB (A & A) ONE (03:09)
[2017-01-05] MEDS: DUONEB (A & A) INH SCH ×6 (03:19→22:56)
[2017-01-05] MEDS: PROTONIX IV SCH (04:39)
[2017-01-05] MEDS: SODIUM CHLORIDE 0.9% INJ SCH (04:39)
[2017-01-05 04:45] LABS: ALLEN TEST YES; BE -0.4 mmoll (-3.0-3.0); BLOOD TYPE ARTERIAL; DRAW SITE R RADIAL; METHB 1.7 % (0.0-1.5); O2(CT) 7.2 mL/dL (15.0-23.0); PCO2(98.6) 36 mmHg (35-45); PO2(98.6) 77 mmHg (60-100); SAMPLE BLOOD; SAO2 100.4 % (95.0-100.0); SRATE 8 BPM; THB 5.2 g/dL (11.5-17.4); TVOL 500 mL; pH(98.6) 7.43 (7.35-7.45)
[2017-01-05 04:46] LABS: MODALITY VENTILATOR
[2017-01-05 05:41] LABS: INR 1.85; PROTIME 20.2 Seconds (9.2-11.7)
[2017-01-05 05:42] LABS: HEMATOCRIT 27.5 % (37.0-47.0); HEMOGLOBIN 8.5 g/dL (12.0-16.0); MCH 35.7 PG (27-31); MCHC 30.9 g/dL (33-37); MCV 115.5 FL (81-99); RBC 2.38 XMIL (4.2-5.4)
[2017-01-05 06:33] LABS: AGAP 15; ALBUMIN 2.3 g/dL (3.5-5.0); ALKALINE PHOSPHATASE 130 U/L (32-104); BUN 24 mg/dL (8-22); CALCIUM 8.4 mg/dL (8.8-10.2); CHLORIDE 97 mmol/L (98-107); COSMO 272; GOT 644 U/L (10-30); GPT 144 U/L (10-36); POTASSIUM 4.7 mmol/L (3.5-5.1); SODIUM 133 mmol/L (136-145); TCO2 21 mmol/L (25-35); TOTAL PROTEIN 5.8 g/dL (6.3-8.3)
[2017-01-05 06:44] LABS: TOTAL BILIRUBIN 22.14 mg/dL (0.20-1.00)
--- NOTE | 2017-01-05 07:16 | Diag Imaging Result Doc PS360 ---
EXAM: CHEST-PORTABLE HISTORY: respiratory failure TECHNIQUE: AP portable chest dated 01/05/2017 at 0500 COMMENT: There is an endotracheal tube with its tip at thoracic inlet. There is a PICC line on the left with its tip in superior vena cava. There is an NG tube which passes into the stomach. The inspiration is suboptimal. There is bibasilar atelectasis similar to 01/04/2017. IMPRESSION: Stable chest. Electronically signed by Timur Escalante 01/05/2017 7:14 AM
[2017-01-05] MEDS: DILAUDID IV PRN ×4 (07:28→22:16)
[2017-01-05] MEDS: LACTULOSE PO SCH ×3 (08:39→16:30)
[2017-01-05] MEDS: ELDERTONIC NG SCH (08:39)
[2017-01-05] MEDS: XIFAXAN PO SCH ×2 (08:40→21:20)
[2017-01-05] MEDS: TRENTAL PO SCH ×3 (08:40→16:30)
[2017-01-05] MEDS: LEVOPHED 8 MG in D5 1/2 NS 250 ML IV SCH ×3 (08:49→23:41)
[2017-01-05] MEDS: FOLIC ACID 1 MG in NS 50.0 ML IV SCH ×2 (08:52→17:11)
[2017-01-05] MEDS ORDERED: NS 2,000 ML MISC PRN (09:58)
[2017-01-05] MEDS: LEVAQUIN 250 MG/D5W 250 MG/50 ML IVPB IV SCH ×2 (10:15→17:15)
[2017-01-05] MEDS: MYCAMINE 100 MG in NS 100 ML IV SCH ×2 (10:16→17:12)
--- NOTE | 2017-01-05 11:31 | PROGRESS NOTE ---
DATE: 01/05/2017 SUBJECTIVE: Today, Ms. Longoria continues to be critical but stable. There have not been any remarkable changes overnight. OBJECTIVE: Vital Signs: Blood pressure is 117/59, pulse of 100, respirations 17 , temperature 98.5 degrees. General: Ms. Longoria is a 46-year-old female. She is in bed , under the ventilator, seems to be synchronizing well. HEENT: Mucosa is pink but very icteric. Chest: Air entry is bilaterally reduced. There are diffuse bilateral crepitations. Cardiovascular: Tachycardic but no murmurs. Abdomen is soft, distended. There is huge hepatomegaly palpable. Bowel sounds are hypoactive. Extremities: No pedal edema. CLINICAL SUPPORT TECH: Patient continues to be stuporous, only moves her head and grimaces her face to extremely painful stimulation. Pupils are also equal and reactive and patient has very reduced gag reflex. LABORATORY DATA: WBC is 33.74, hemoglobin is 8.5, platelet count of 88,000. Chemistry is reviewed. Sodium is 133, potassium 4.7, chloride 97, bicarb is 21. AST went up to 644. ALT went up to 144. Patient's ABG shows a pH of 7.43, pCO2 of 36, PaO2 of 77. Patient is on ventilator AC mode at a rate of 18 FiO2 of 50%, Jasson volume of 500 and PEEP of 8. CURRENT MEDICATIONS: 1. Clinimix 70 mL/hour. 2. Folic acid. 3. Dilaudid 1 mg q.4 p.r.n. 4. Imipenem 250 mg q. 8. 5. Levofloxacin 250 q. 24. 6. Ativan 4 mg IV p.r.n. 7. Metoclopramide. 8. Micafungin 100 mg daily. 9. Norepinephrine drip. 10. Pantoprazole. 11. Pentoxifylline. 12. Rifaximin 550 b.i.d. 13. Vancomycin 1 g. So far, blood cultures that were done yesterday has not shown anything. ASSESSMENT: 1. Altered mental status (stuporous/comatose) due to underlying metabolic encephalopathy. 2. Jnxrj-yj-mytbtgc alcohol-induced liver failure. 3. Hypoxemic respiratory failure. Patient is on the ventilator. 4. Acute renal failure in the setting of acute liver failure suspicious for hepatorenal syndrome. Patient gets sustained low-efficiency dialysis. 5. Escherichia coli and Klebsiella urinary tract infection. Patient is on antibiotics. 6. Candiduria. The patient is on micafungin. 7. Extended spectrum beta-lactamase Escherichia coli positive sputum, suspicious for ventilator- associated pneumonia. Patient is on antibiotics. 8. Poor prognosis.DNR level 2 So, today, I had a discussion with the who was in the room at the time of the encounter. He seems to be on the same page of wanting to withdraw care. He is pending a decision with the mother and the father of the patient for all of them to come on the same page. For now, we are going to continue with maximum care. The patient is being seen by Pulmonary Medicine, Nephrology and also ID and GI. Of note, the patient's laboratory data shows worsening of liver enzymes. I am not sure if she went into any form of ischemic liver because she was slightly hypotensive or it is just a new liver injury from a different etiology. cc: Bobby Foster MD MTDD
--- NOTE | 2017-01-05 14:09 | PROGRESS NOTE ---
DATE: 01/05/2017 SUBJECTIVE: Unchanged. Remains sedated or unresponsive. VITAL SIGNS: Blood pressure 117/59, heart rate 102, respirations 26, afebrile intake 3.2 L. Intake 3.2 L. Output 2.5 L. PHYSICAL EXAMINATION: In no acute distress. Skin is warm and dry. Conjunctivae are pink, icteric. Oropharynx is dry. Heart is regular and mildly tachycardic. No gallops. Lungs have equal breath sounds. No crackles. Abdomen soft, nontender. Bowel sounds present. Extremities have 2 to 3+ edema. No clubbing or cyanosis. LABORATORY DATA: Sodium 133, potassium 4.7, chloride 97, bicarbonate 21. BUN 24. Creatinine 0.5. Hemoglobin 8.5. IMPRESSION: 1. Acute kidney injury, no improvement. She is currently receiving sustained low-efficiency dialysis. I had a discussion with the today. They have made a decision to begin withdrawal of care. We will complete her treatment today, but we will hold on any further dialysis pending the further decisions from the family. 2. Electrolytes, acid-base, and anemia are all stable. cc: Fili Ortiz MD
[2017-01-05] MEDS: PRILOSEC ORAL SUSPENSION PO SCH (17:40)
[2017-01-05] MEDS: VANCOMYCIN 1 GM/NS 1 GM/250 ML IVPB IV SCH (17:59)
[2017-01-06] MEDS: NS IV SCH ×3 (03:32→17:23)
[2017-01-06] MEDS: REGLAN IV SCH ×4 (03:32→20:00)
[2017-01-06] MEDS: PRIMAXIN IV SCH ×3 (03:32→17:23)
[2017-01-06] MEDS: DUONEB (A & A) INH SCH ×6 (03:53→23:13)
[2017-01-06 04:51] LABS: ALLEN TEST YES; BE -0.5 mmoll (-3.0-3.0); BLOOD TYPE ARTERIAL; DRAW SITE R RADIAL; METHB 1.1 % (0.0-1.5); O2(CT) 15.5 mL/dL (15.0-23.0); PCO2(98.6) 39 mmHg (35-45); PO2(98.6) 103 mmHg (60-100); SAMPLE BLOOD; SAO2 100.5 % (95.0-100.0); SRATE 8 BPM; THB 11.3 g/dL (11.5-17.4); TVOL 500 mL
[2017-01-06 04:52] LABS: MODALITY VENTILATOR
[2017-01-06] MEDS: DILAUDID IV PRN ×5 (05:02→21:25)
[2017-01-06] MEDS: CLINIMIX E 4.25%-5% SOLUTION 1,000 ML IV SCH ×2 (05:06→19:37)
[2017-01-06 05:49] LABS: HEMATOCRIT 25.5 % (37.0-47.0); HEMOGLOBIN 7.6 g/dL (12.0-16.0); MCH 35.5 PG (27-31); MCHC 29.8 g/dL (33-37); MCV 119.2 FL (81-99); PLT 65 X1000 (130-400); RBC 2.14 XMIL (4.2-5.4)
[2017-01-06 06:12] LABS: AGAP 10; ALBUMIN 2.1 g/dL (3.5-5.0); ALKALINE PHOSPHATASE 119 U/L (32-104); BUN 24 mg/dL (8-22); CALCIUM 8.1 mg/dL (8.8-10.2); CHLORIDE 100 mmol/L (98-107); COSMO 269; GOT 513 U/L (10-30); GPT 142 U/L (10-36); POTASSIUM 4.7 mmol/L (3.5-5.1); SODIUM 131 mmol/L (136-145); TCO2 21 mmol/L (25-35); TOTAL PROTEIN 5.3 g/dL (6.3-8.3)
[2017-01-06 06:26] LABS: TOTAL BILIRUBIN 18.75 mg/dL (0.20-1.00)
[2017-01-06 06:29] LABS: INR 1.65; PROTIME 17.9 Seconds (9.2-11.7)
--- NOTE | 2017-01-06 07:11 | Diag Imaging Result Doc PS360 ---
EXAM: CHEST-PORTABLE HISTORY: respiratory failure TECHNIQUE: AP portable at 0500 COMMENT: There is bibasal or atelectasis. The inspiration is suboptimal. There is an endotracheal tube at the thoracic inlet. There is a left PICC line with its tip in superior vena cava and an NG tube which passes into the stomach. Compared to the previous examination of 01/05/2017 there is been no significant change in the appearance of the chest. IMPRESSION: Bibasilar atelectasis. Electronically signed by Timur Escalante 01/06/2017 7:09 AM
[2017-01-06] MEDS: ELDERTONIC NG SCH (08:48)
[2017-01-06] MEDS: LACTULOSE PO SCH ×3 (08:49→16:23)
[2017-01-06] MEDS: XIFAXAN PO SCH ×2 (08:49→20:00)
[2017-01-06] MEDS: TRENTAL PO SCH ×3 (08:49→16:23)
[2017-01-06] MEDS: PRILOSEC ORAL SUSPENSION PO SCH (08:49)
[2017-01-06] MEDS: FOLIC ACID 1 MG in NS 50.0 ML IV SCH (09:05)
[2017-01-06] MEDS: LEVAQUIN 250 MG/D5W 250 MG/50 ML IVPB IV SCH (10:11)
[2017-01-06] MEDS: MYCAMINE 100 MG in NS 100 ML IV SCH (10:11)
[2017-01-06] MEDS ORDERED: ROMAZICON ONE (11:48)
[2017-01-06] MEDS ORDERED: ROMAZICON IV ONE (11:48)
[2017-01-06] MEDS ORDERED: NARCAN ONE (11:50)
[2017-01-06] MEDS ORDERED: NARCAN IV ONE (11:51)
[2017-01-06] MEDS: LEVOPHED 8 MG in D5 1/2 NS 250 ML IV SCH (11:52)
--- NOTE | 2017-01-06 11:55 | PROGRESS NOTE ---
DATE: 01/06/2017 SUBJECTIVE: Today Ms. Longoria continues to be critical sick. No major changes overnight. OBJECTIVE: Vital signs: Blood pressure 99/59, pulse of 100, respirations 25, temperature 98.2 degrees. General: Ms. Longoria is a 46-year-old female. She is in bed. She is intubated, Synchronizing well with the ventilator. HEENT: Mucosa is pink. Very icteric. Neck: Supple. Chest: Air entry is bilaterally reduced. There is bilateral posterior crepitations. Cardiovascular: Tachycardic. No murmurs. Abdomen: Soft, distended. Palpable hepatomegaly. Bowel sounds are hypoactive. Extremities: No pedal edema. LPN: Patient is stuporous. Only grimaces the forehead to painful stimulation. Pupils are equal and they are reactive to light. Patient has good gag reflex today. LABORATORY DATA: WBC is down to 25.08, hemoglobin is 7.6, platelet count is 65,000. Chemistry is reviewed. Sodium is 131, potassium is 4.7, chloride is 100, bicarb is 21, creatinine 0.7. The patient's AST is 513, ALT is 143. I's and O's: Urine output was just 15. Chest x-ray done today shows bibasilar atelectasis. No significant change from before. ASSESSMENT: 1. Altered mental status (stuporous/comatose due to underlying metabolic encephalopathy). 2. Acute on chronic alcohol induced liver failure. 3. Hypoxemic respiratory failure. Patient continues to be on ventilator. 4. Acute renal failure in the setting of acute liver failure. Suspicious for hepatorenal syndrome. 5. Escherichia coli and Klebsiella urinary tract infection. 6. Candiduria. Patient is on micafungin. 7. Extended spectrum beta-lactamase Escherichia coli sputum positive with pneumonia. 8. Poor prognosis we Do Not Resuscitate level 2. PLAN: In general, Ms. Longoria continues to be critically sick. We are going to continue with the current antibiotics, ventilator support, dialysis when needed. The patient has under the ventilator since the of last month. Today is day 12 under the ventilator which I think if the family wants to continue care we will have to be thinking about a tracheostomy. We will defer this to the print decorator on board to make the decision and discuss it with the family members. In terms of the lab work today, there has been slight improvement so we will continue monitoring. cc: Bobby Foster MD
[2017-01-06] MEDS ORDERED: ROMAZICON IV PRN (12:11)
[2017-01-06] MEDS ORDERED: NARCAN IV PRN (12:13)
[2017-01-06 12:37] LABS: ALLEN TEST NO; BLOOD TYPE ARTERIAL; DRAW SITE R BRACHIAL; METHB 1.1 % (0.0-1.5); O2(CT) 10.4 mL/dL (15.0-23.0); PCO2(98.6) 28 mmHg (35-45); PO2(98.6) 71 mmHg (60-100); SAMPLE BLOOD; SAO2 100.2 % (95.0-100.0); THB 7.6 g/dL (11.5-17.4)
[2017-01-06 12:38] LABS: MODALITY VENTILATOR
[2017-01-06] MEDS: HALDOL IV PRN ×2 (12:58→19:40)
[2017-01-06] MEDS: ATIVAN IV PRN ×2 (14:19→21:25)
--- NOTE | 2017-01-06 16:09 | PROGRESS NOTE ---
DATE: 01/06/2017 SUBJECTIVE: I was, early today, told by the entry level, Dr. Mcgregor, that the patient reacted very appropriately with following commands after she was given flumazenil and Narcan, so they went ahead and extubated the patient. At about 2 o'clock I came down here to just check on her. She was breathing about 50 beats per hour in respiratory rate. Her blood pressure was 105/58 and her pulse was 120. Patient is obviously using accessory muscle and having more difficulty breathing. I had a little bit of a lengthy discussion with Dr. Mcgregor. He was with the impression that the patient could probably do okay if we give her more medication to see if it could be reversed. I spoke with the extensively and he was in tears because he was seeing his breathing more than 50 per hour with eyes, feeling very uncomfortable, and he did not want us to give her anymore flumazenil or Narcan and would prefer that we keep her very comfortable with some sedatives and some pain medication. He also made it clear that he does not want the patient to be reintubated after a very lengthy discussion and he also made it clear that he does not want Dr. Mcgregor to be on the case any more. ASSESSMENT: Worsening respiratory status. The patient is showing more signs of respiratory failure. I think she is going to be tired if she is not intubated. However, the does not want her intubated anymore and he wants to keep her comfort measures only. So, we are going to give her some Ativan and some Dilaudid to keep her more comfortable an address her symptoms. cc: Bobby Foster MD MTDD
[2017-01-06] MEDS ORDERED: PRILOSEC ORAL SUSPENSION PO SCH (17:00)
[2017-01-07] MEDS: LEVOPHED 8 MG in D5 1/2 NS 250 ML IV SCH ×2 (00:33→10:02)
[2017-01-07] MEDS: PRIMAXIN IV SCH ×2 (02:22→10:12)
[2017-01-07] MEDS: REGLAN IV SCH ×2 (02:22→09:32)
[2017-01-07] MEDS: HALDOL IV PRN (02:22)
[2017-01-07] MEDS: NS IV SCH ×2 (02:22→10:12)
[2017-01-07] MEDS: DILAUDID IV PRN ×4 (03:30→13:55)
[2017-01-07] MEDS: ATIVAN IV PRN ×4 (03:30→13:53)
[2017-01-07] MEDS: DUONEB (A & A) INH SCH ×3 (03:35→11:17)
--- NOTE | 2017-01-07 06:30 | Diag Imaging Result Doc PS360 ---
CHEST-PORTABLE - 01/07/2017 INDICATION: respiratory failure TECHNIQUE: COMPARISON: 01/06/2017 FINDINGS: The endotracheal tube has been removed. Stable nasogastric tube and left PICC line in good position. Stable critically low lung volumes. There is perhaps trace improvement in atelectasis at the left lung base. IMPRESSION: Endotracheal tube removed. Otherwise little change from prior. Electronically signed by Young Sharp 01/07/2017 6:28 AM
[2017-01-07 06:40] LABS: HEMATOCRIT 23.2 % (37.0-47.0); MCH 35.9 PG (27-31); MCHC 30.2 g/dL (33-37); PLT 79 X1000 (130-400); RBC 1.95 XMIL (4.2-5.4)
[2017-01-07 06:46] LABS: INR 1.52; PROTIME 16.4 Seconds (9.2-11.7)
[2017-01-07 07:49] LABS: CALCIUM 8.1 mg/dL (8.8-10.2); POTASSIUM 6.1 mmol/L (3.5-5.1); TOTAL BILIRUBIN 18.08 mg/dL (0.20-1.00); TOTAL PROTEIN 5.3 g/dL (6.3-8.3)
[2017-01-07] MEDS: TRENTAL PO SCH (09:34)
[2017-01-07] MEDS: XIFAXAN PO SCH (09:34)
[2017-01-07] MEDS: LACTULOSE PO SCH (09:34)
[2017-01-07] MEDS: PRILOSEC ORAL SUSPENSION PO SCH (09:40)
[2017-01-07] MEDS: ELDERTONIC NG SCH (09:42)
[2017-01-07] MEDS: FOLIC ACID 1 MG in NS 50.0 ML IV SCH (09:42)
[2017-01-07] MEDS: CLINIMIX E 4.25%-5% SOLUTION 1,000 ML IV SCH (10:01)
[2017-01-07] MEDS: LEVAQUIN 250 MG/D5W 250 MG/50 ML IVPB IV SCH (10:42)
[2017-01-07] MEDS: MYCAMINE 100 MG in NS 100 ML IV SCH (10:59)
--- NOTE | 2017-01-07 11:05 | PROGRESS NOTE ---
DATE: 01/07/2017 TIME SEEN: 729 SUBJECTIVE: Ms. Longoria is resting in bed. Head of the bed is elevated. Her is at the bedside. Upon request, she is currently on BiPAP. She remains sedated and nonresponsive. OBJECTIVE: Vital Signs: Most recent vital signs, temperature 97.3 degrees, blood pressure 112/62, heart rate 95, respirations 32. Again, she is on 15 L on BiPAP. She is saturating at 98%. She has had 2950 in. She has only had 10 mL out per Lockwood catheter. Laboratory Data: Her sodium is 128, potassium 6.1, chloride is 96, CO2 of 22, BUN 57, creatinine 1.4, glucose 140, anion gap 9, calcium 8.1, albumin 2. White count 24.93, hemoglobin 7, hematocrit 23.2, with a platelet count of 79,000. Her PT is 16.4, INR 1.52. ABGs were not drawn this morning secondary to 's request. Physical Examination: General: This is a 46-year-old, white female who appears chronically ill. She is in no acute distress. Skin is warm and dry. HEENT: Conjunctivae are slightly icteric. She has MICHELLE, though they are sluggish. Mucous membranes are dry. Neck: Supple. Trachea midline. No JVD. Cardiovascular: Regular rate and rhythm. She is without gallop. No murmur. Lungs: Equal breath sounds. No crackles or wheezes. She remains on BiPAP as mentioned. Abdomen: Soft, nontender. Positive bowel sounds. Extremities: Continues with 2 to 3+ dependent edema up into the midthigh area. No clubbing or cyanosis. Integumentary: The patient remains jaundiced, dry, and intact. Neurological: As above. ASSESSMENT AND PLAN: 1. Acute kidney injury. Patient has had no improvement in urine output. She is now a do-not- resuscitate level 1. I have spoken to the today in regards with the decisions of pending dialysis. He states that the family has had enough and he prefers that we do nothing further. 2. Electrolytes. She has hyperkalemia. Again, we will defer to the primary care team for any treatment. 3. Acid-base balance. This holds stable. 4. Anemia. Hemoglobin of 7. Patient has had withdrawal of care. I would to thank you for allowing us to follow with this patient. I also spoke with the and reviewed the clinical situation and the role of dialysis in her management. Given her low likelihood of recovery and her wishes as expressed by the , son, and father, ongoing dialysis is not indicated as they do not feel she would agree to ongoing aggressive care. I will sign off. Please call if I can help. rg Seen, data reviewed, discussed with Sabino Bustamante on 01/07/17. I agree with the above assessment and plan of care. rg Dictated by LEIGHANN Harris for Fili Ortiz MD cc: LEIGHANN Harris MD [facility]
[2017-01-07 12:42] VITALS: BP 108/62
--- NOTE | 2017-01-07 13:00 | PROGRESS NOTE ---
DATE: 01/07/2017 SUBJECTIVE: Today, Ms. Longoria continues to be extremely critical. She is extubated and she is on the BiPAP breathing almost like 50 per hour. OBJECTIVE: Vital signs: Blood pressure is 118/62, pulse of 95, respirations 27 , temperature 97.2. General: Ms. Longoria is a 46-year-old female. She is in bed, in respiratory distress. HEENT: Mucosa is pink and is very jaundiced. Chest: Air entry is bilaterally reduced. There is bilateral posterior crepitations. Cardiovascular: Tachycardic. No murmurs. Abdomen: Soft and extremely distended. There is a huge palpable hepatomegaly. Extremities: 2+ pedal edema. FILLING CARRIER: Patient continues to be extremely stuporous and unresponsive only will grimace her face to painful stimulation. Pupils are equal and reactive. Did not test for gag. LABORATORY DATA: WBC is 24.92, hemoglobin is 7.0, platelet count of 179,000. Chemistry is reviewed. Potassium is 6.1, chloride is 198. Bicarbonate is 22, sodium is 128 , liver functions continue to be high. ASSESSMENT: 1. Multiorgan failure. 2. Altered mental status secondary to metabolic encephalopathy. 3. 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 MELD score 35 4. Hypoxemia respiratory failure. Patient has been extubated. 5. Acute renal failure in the setting of acute liver failure. Suspicious for hepatorenal syndrome. The patient was on SLED, but because of her poor prognosis, Nephrology has decided to withdraw upon consultation with the family members. 6. Escherichia coli and Klebsiella urinary tract infection. 7. Candiduria. 8. Pneumonia likely secondary to extended spectrum beta-lactamase Escherichia coli. 9. Electrolyte abnormality including hyperkalemia and hyponatremia. 10. Extreme poor prognosis. 11. Do Not Resuscitate. PLAN: Today, Ms. Longoria's family wants to keep her DNR and BALLAST REGULATOR OPERATOR. I spoke with her senior mechanical development engineer and taking into consideration the poor prognosis he has withheld dialysis therapy. The family, which is the and the son, want everything to be stopped including the antibiotics, no more lab work and no imaging studies. We will also stop the pressor and keep the patient only on Comfort Care. I would go ahead and increase her Dilaudid to 1 mg q.1 hour p.r.n. and also Ativan 1 mg q.1 hour p.r.n. if needed. If patient continues to be very uncomfortable we would recommend consulting hospice. cc: Bobby Foster MD MTDMarcela
--- NOTE | 2017-01-09 06:52 | DISCHARGE SUMMARY ---
ADMISSION DATE: 12/21/2016 DISCHARGE DATE: 01/07/2017 DATE OF ADMISSION: 12/06/2016. DATE OF : 01/07/2017. Time of : 2:30 p.m. ADMISSION DIAGNOSES: 1. Liver failure. 2. Microcytic anemia. 3. Leukocytosis. 4. Urinary tract infection. 5. Alcohol abuse. DISCHARGE DIAGNOSES AT THE TIME OF : 1. Multi organ failure. 2. Altered mental status secondary to metabolic encephalopathy. 3. 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 4. Hypoxemic respiratory failure; vent dependent. 5. Acute renal failure in the setting of acute liver failure. Suspicious for hepatorenal syndrome with possible superimposed ATN. 6. E. coli and Klebsiella urinary tract infection. 7. Candiduria. 8. Pneumonia of secondary to extended spectrum beta lactamase. 9. Escherichia coli. PRESENTING COMPLAINT: Abdominal pain, jaundice and abdominal distention. Ms. Longoria is a 46-year-old very unfortunate female who is known to have multiple episodes of alcohol abuse and hospitalization related to alcohol disorders. This time around, she was brought in because of abdominal pain and jaundice and was found to be in hepatic failure and the patient was admitted. During the hospital stay, patient developed significant respiratory compromise and was intubated. Her kidney functions also had gotten worse so she received renal replacement therapy (SLED) for most of her ICU stay. The patient was pretty much vent-dependent, there was an attempt to wean her, but was successful. However, the day before her demise, Dr. Mcgregor thought that the patient could be extubated, so had a discussion with the family members and successfully extubated the patient. However, a couple minutes to hours later the patient started having more difficulty breathing with a respiratory rate in the 50s and was put back on the BiPAP. However, the family members had already made Ms. Longoria a DNR/DNI and will not reintubate her. Ms. Longoria's condition continued to deteriorate over the course of the 24 hours, and unfortunately subsequently demised. The patient was pronounced with a flat line on the night monitor at 2:30 on 01/07/2017. The family members were notified. CONSULTATIONS: 1. We did consult Pulmonary Medicine. The patient was being followed by Dr. Baires. 2. Nephrology was consulted. Patient was seen and followed by Dr. Ortiz. 3. GI was also consulted. Patient was seen and followed by Dr. Reagan and Dr. Ivey. There were no invasive procedures done except for a vas-cath in the femoral vein by Dr. Holder. TIME SPENT FOR DISCHARGE: 37 minutes. cc: Bobby Foster MD
--- NOTE | 2017-04-17 20:53 | ED EKG INTERP ---
This chart was entered by Siva Nunez Scribe, acting as scribe for Hair Mckeon MD. EKG Interpretation - EKG Time of EKG reading by physician:: 23:10 EKG Read and Signed by:: Hair Mckeon EKG Interpretation (*Must complete 3 of following elements*): Abnormal ( Nonspecific T wave abnormality) Rate: 101 Rhythm: Sinus tachycardia Attestation - Physician/ ADELE Attestation Patient care was provided by Advanced Practice Provider:: No The physician spent face to face time with patient:: No Advanced Practice Provider documentation review:: Supervising physician onsite and consulted in the evaluation and care of this patient. The physician did not have a face to face encounter with the patient. This chart was documented by the indicated scribe, (Siva Nunez Scribe) and accurately reflects the services I performed and decisions made by me, Hair Mckeon MD, as attested by the provider's signature.
== END 2017-01-07 17:58 | disposition expired ==
LOC: ED 17:49 → SUATTDRO 18:03 → ICU 12-22 01:03
PROVIDERS: ATTEND Internal Medicine